=== PATIENT | male | born 1975 | race Caucasian/White ===

== ENCOUNTER 2023-11-15 10:54 | Inpatient (IN) ==
--- OUTSIDE RECORDS SUMMARY | 2023-11-15 11:00 | External Medical Summary | Summary of Care ---
Author Name Unknown Organization [facility] Address [address] [facility] [place] [address] Phone [phone] Care Team Providers Care Cytology Supervisor Name Role Phone Irina Mittal MD Primary Care Provider [phone] Reason for Visit * Reason Onset Date Comments eRx-Medication Refill Fax 09/13/2023 Last office visi t notes from 09/20 Encounter Details Date Type Department Care Team (Late st Contact Info) Description 09/13/2023 Telephone Family Practice [facility] [address] [place] [address] Irina Mittal MD [address] [place] [address] eRx-Medication Refill; Fax (Last office vi... Medications Medication Sig Dispensed Refills Start Date End Date Status Diclofenac Sodium 1 % External Gel (Voltaren) apply 2 grams to affected area twice a day NEEDED FOR PAIN 100 g 1 2 Active [facility] Ultra 2 w/Device Kit Use to take blood sugar E11.9 1 Kit 4 Active OptarosTouch Ultra In Vitro Strip (Glucose Blood) Use to test blood sugar E11.9 100 Strip 5 4 Active OptarosTouch Delica Lancets 33G Use to the test blood sugar once daily E11.9 100 Each 5 4 Active Pravastatin Sodium 10 MG Oral Tablet (Pravachol) take 1 tablet by mouth at bedtime 90 Tablet 4 Active Jardiance 25 MG Oral Tablet (Empagliflozin) take 1 tablet by mouth once daily 90 Tablet 1 4 Active Trulicity 1.5 MG/0.5ML Subcutaneous Solution Pen-injector (Dulaglutide)Ind ications:Type 2 diabetes mellitus with hemoglobin A1c goal of less than 7.0% (HCC) inject 0.5 milliliters ( 1 AND 1/2 milligrams ) subcutaneously every week IN THE ABDOMEN THIGHS OR OUTER AREA OF UPPER ARM ROTATE INJECTION SITES 6 mL 3 3 024 Discontinued(Re fill) Jardiance 25 MG Oral Tablet (Empagliflozin) take 1 tablet by mouth once daily 90 Tablet 4 024 Discontinued Losartan Potassium 25 MG Oral Tablet (Cozaar)Indicati ons:Type 2 diabetes mellitus with hemoglobin A1c goal of less than 7.0% (HCC) take 1 tablet by mouth every morning 90 Tablet 4 024 Discontinued(Re fill) documented as of this encounter (statuses as of 11/05/2023) Active Problems Problem Noted Date Diagnosed Date Type 2 diabetes mellitus wit h foot ulcer, without long-term current use of insulin 09/21/2023 BMI 40.0-44.9, adult 04/16/2020 Overview: Per Obesity protocol HTN, goal below 130/80 11/15/2019 Type 2 diabetes mellitus wit h hemoglobin A1c goal of less than 7.0% 05/02/2019 Dyslipidemia 05/02/2019 Morbid obesity due to excess calories 04/26/2019 documented as of this encounter (statuses as of 11/05/2023) Immunizations Name Administration Dates Next Due TDAP (age 10 and older)(Boostrix) 04/26/2019 documented as of this encounter Social History Tobacco Use Types Packs/Day Years Used Date Smoking Tobacco: Never Smokeless Tobacco: Never Alcohol Use Standard Drinks/Week Comments Not Currently 0 (1 standard drink = 0.6 oz pur e alcohol) PHQ-2 Answer Date Recorded PHQ Adult Total Score 0 07/31/2020 Hunger Vital Sign Answer Date Recorded Worried About Running Out of Food in the Last Ye ar Never true 04/26/2019 Ran Out of Food in the Last Year Never true 04/26/2019 Sex and Gender Information Value Date Recorded Sex Assigned at Male 07/01/2022 7:29 PM EST Gender Identity Male 07/01/2022 7:29 PM EST Sexual Orientation Straight 07/01/2022 7: 29 PM EST Job Start Date Occupation Industry Not on file Not on file Not on file documented as of this encounter Miscellaneous Notes * Telephone Encounter - Dipti Guajardo LPN - 11/05/2023 12:05 PM EDT Please send to PCP's office, not a urology patient. Thank you Sandra * Telephone Encounter - Georgette Dior OSA - 11/05/2023 11:51 AM EDT Mary from [facility] is following up on her previous call. Mary states she has no received any faxes. Confirmed fax * Telephone Encounter - Jelena Simeon LPN - 10/16/2023 4:50 PM EDT Faxed missing information needed * Telephone Encounter - Mae Walker OSA - 10/12/2023 9:02 AM EDT [employer] calling in again stating they did receive some of the paperwork, but they are still missing forms. They need most recent office notes, and the statement of certifying physician form that sent over. Please fax this info to [phone] * Telephone Encounter - Wilfrido Dobson OSA - 10/07/2023 3:03 PM EDT Caller requesting the following information to be faxed: Name/Company of caller: Tameka with [facility] Information requested to be faxed: Last office visit notes and a statement of certifying physician form Fax number: [phone] Attention to Name/Company: [employer] Any additional information?: None * Telephone Encounter - Irina Mittal MD - 09/29/2023 5:54 PM EDT I will check. I don't have the forms that I am aware of. * Telephone Encounter - Agustina Lozano LPN - 09/29/2023 4:30 PM EDT Please check if you have these forms on your desk or they may have gone to [facility]. I believe an MD or DO has to sign the forms. * Telephone Encounter - Day Campa OSA - 09/29/2023 11:42 AM EDT [employer] called regarding the forms faxed for therapeutic shoes. I made her aware these were unable to be completed until pt was seen for an OV. Since pt was seen 09/20, please complete the forms and sendwith pt's OV notes to fax #: [phone]. * Telephone Encounter - Edel Torrez OSA - 09/25/2023 9:28 AM EDT No answer and VM full My g sent * Telephone Encounter - Edel Torrez OSA - 09/22/2023 10:03 AM EDT LM for pt to call back for an appt with any provider * Telephone Encounter - Moira Vega LPN - 09/22/2023 10:01 AM EDT Patient has not been seen since May 2022. Will need OV prior to completion of form. * Telephone Encounter - Adele Martel OSA - 09/21/2023 1:23 PM EDT Hallie has called in with [facility] states she needs most recent office notes & form to be filled out & signed by physician in regards to pt.'s order for diabetic shoes & faxed back to [phone] please advise. * Telephone Encounter - Dominique Goldstein PHARM Tech - 09/16/2023 3:01 PM EDT Patient calling to request appt with Dr. Mittal. Transferred pt to scheduling for further assistance. Thank you, Dominique Goldstein, [facility] Dynamometer Tester II [facility])(Formerly Telepharmacy) 09/16/2023,3:01 PM * Telephone Encounter - Man Mukherjee RP - 09/14/2023 4:34 PM EDT Signed Prescriptions: Disp Refills Jardiance 25 MG Oral Tablet (Empagliflozin)90 Tab*1 Sig: take 1 tablet by mouth once dailyAuthorizing Provider: IRINA MITTAL User: MAN MUKHERJEE * Telephone Encounter - Jelena Simeon LPN - 09/14/2023 10:13 AM EDT Received fax from [facility] requesting office notes and forms to be completed for therapeutic shoes. Pt has not been in office since 05/08/2022. Pt will need appt for this to be completed Called pt, let message for a return call documented in this encounter Plan of Treatment Upcoming Encounters Date Type Department Care Team (Late st Contact Info) Description 12/01/2023 8:00 AM EDT Office Visit Pharmacy, [facility] [address] [facility] [place] [address] [facility] [address] [facility] [place] [address] Scheduled Orders Name Type Priority Associated Diagnoses Orde r Schedule CBC Lab Routine Dyslipidemia Expected: 09/21/2023 (Approximate), Expires: 09/20/2024 LIPID PANEL WITH DIRECT LDL IF TG IS HIGH Lab Routine Dyslipidemia Expected: 09/21/2023 (Approximate), Expires: 09/20/2024 Health Maintenance Due Date Last Done Comments Pneumococcal Vaccine: Pediatrics (0 to 5 Years) and At-Risk Patients (6 to 64 Years) (1 of 2 - PCV) 1983 Hepatitis B (1 of 3 - 19+ 3-dose series) 1996 Depression Screening 07/31/2021 07/31/2020 Cologuard 2022 Colonoscopy 2022 Colorectal Cancer Screening 2022 Fecal Occult Blood Test 2022 Sigmoidoscopy 2022 Diabetic Eye Exam 11/27/2022 11/27/2021, , 11/14/2020, Additional history exists COVID-19 Vaccine ( - 2022- season) 2023 Albumin/Creatinine Ratio 06/28/2023 023, 04/18/2022, 03/20/2021 HbA1c 01/11/2024 07/13/2023, 01/06, 06/28/2022, Additional history exists B-12 01/22/2024 01/21/2023, 11/08, 08/23/2020 Influenza Vaccine (FLU shot) (Season Ended) 2024 GFR 07/13/2024 07/13/2023, 07/10, 07/26/2022, Additional history exists Diabetic Foot Exam 09/20/2024 09/21/2023, 08/23/2020 Lipid Panel 06/28/2027 06/28/2022, 01/2022, 12/05/2021, Additional history exists DTaP,Tdap,and Td Vaccines (2 - Td or Tdap) 04/26/2029 04/26/2019 GARDASIL-HPV IMMUNIZATION SERIES Aged Out No longer eligible based on patient's age to complete this topic HIV Screening Discontinued Hepatitis C Screening Discontinued MENINGOCOCCAL (MENACTRA/MENVEO) Aged Out No longer eligible based on patient's age to complete this topic documented as of this encounter Medical Devices Not on filedocumented as of this encounter Visit Diagnoses Diagnosis Dyslipidemia- Primary Other and unspecified hyperlipidemia documented in this encounter Care Teams Cytology Supervisor Relationship Specialty Start Date End Date Irina Mittal MD [address] [place] [address] PCP - General Family Medicine 03/19/20 documented as of this encounter
--- OUTSIDE RECORDS SUMMARY | 2023-11-15 11:00 | External Medical Summary | Summary of Care ---
Author Name Unknown Organization [facility] Address [address] [facility] [place] [address] Phone [phone] Care Team Providers Care Fashion Photographer Name Role Phone Irina Mittal MD Primary Care Provider [phone] Reason for Visit * Reason Onset Date Comments eRx-Medication Refill Fax 09/13/2023 Last office visi t notes from 09/20 Encounter Details Date Type Department Care Team (Late st Contact Info) Description 09/13/2023 Telephone Family Practice [facility] [address] [place] [address] Irina Mittal MD [address] [place] [phone] eRx-Medication Refill; Fax (Last office vi... Allergies No known active allergiesdocumented as of this encounter (statuses as of 10/13/2023) Medications Medication Sig Dispensed Refills Start Date End Date Status Diclofenac Sodium 1 % External Gel (Voltaren) apply 2 grams to affected area twice a day NEEDED FOR PAIN 100 g 1 2 Active Maven7Touch Ultra 2 w/Device Kit Use to take blood sugar E11.9 1 Kit 0 4 Active OneTouch Ultra In Vitro Strip (Glucose Blood) Use to test blood sugar E11.9 100 Strip 5 4 Active OneTouch Delica Lancets 33G Use to the test blood sugar once daily E11.9 100 Each 5 4 Active Pravastatin Sodium 10 MG Oral Tablet (Pravachol) take 1 tablet by mouth at bedtime 90 Tablet 0 4 Active Jardiance 25 MG Oral Tablet [...] tablet by mouth once daily 90 Tablet 0 4 024 Discontinued Losartan Potassium 25 MG Oral Tablet (Cozaar)Indicati ons:Type 2 diabetes mellitus with hemoglobin A1c goal of less than 7.0% (HCC) take 1 tablet by mouth every morning 90 Tablet 0 4 024 Discontinued(Re fill) documented as of this encounter (statuses as of 10/13/2023) Active Problems Problem Noted Date Diagnosed Date [...] as of this encounter (statuses as of 10/13/2023) Immunizations Name Administration Dates Next Due TDAP [...] encounter Miscellaneous Notes * Telephone Encounter - Mae Walker OSA - 10/12/2023 9:02 AM EDT [employer] calling in again stating they did receive some of the paperwork, but they are still missing forms. They need most recent office notes, and the statement of certifying physician form that sent over. Please fax this info to [phone] * Telephone Encounter - Wilfrido Dobson OSA - 10/07/2023 3:03 PM EDT Caller requesting the following information to be faxed: Name/Company of caller: Ally with [facility] Information requested to be faxed: Last office visit notes and a statement of certifying physician form Fax number: [phone] Attention to Name/Company: [employer] Any additional information?: None * Telephone Encounter - Irina Mittal MD - 09/29/2023 5:54 PM EDT I will check. I don't have the forms that I am aware of. * Telephone Encounter - Agustina Lozano LPN - 09/29/2023 4:30 PM EDT Please check if you have these forms on your desk or they may have gone to [facility]. I believe an MD or DO has [...] sendwith pt's OV notes to fax #: [phone]. * Telephone Encounter - Edel Torrez OSA [...] PM EDT Hallie has called in with [facility] states she needs most recent office notes & form to be filled out & signed by physician in regards to pt.'s order for diabetic shoes & faxed back to [phone] please advise. * Telephone Encounter - Dominique Goldstein PHARM Tech - 09/16/2023 3:01 PM EDT Patient calling to request appt with Dr. Mittal. Transferred pt to scheduling for further assistance. Thank you, Dominique Goldstein, [facility] Slip Feeder II [facility])(Formerly Telepharmacy) 09/16/2023,3:01 PM * Telephone Encounter - Man Mukherjee [facility] - 09/14/2023 4:34 PM EDT Signed Prescriptions: Disp Refills Jardiance 25 MG Oral Tablet (Empagliflozin)90 Tab*1 Sig: take 1 tablet by mouth once dailyAuthorizing Provider: IRINA MITTAL User: MAN MUKHERJEE * Telephone Encounter - Jelena Simeon LPN - 09/14/2023 10:13 AM EDT Received fax from [facility] requesting office notes and forms to be [...] AM EDT Office Visit Pharmacy, [facility] [address] [facility] [place] [address] [facility] [address] [facility] [place] [address] Scheduled Orders Name Type Priority Associated Diagnoses [...] 11/14/2020, Additional history exists COVID-19 Vaccine ( season) 2023 Albumin/Creatinine Ratio 06/28/2023 023, 04/18/2022, 03/20/2021 HbA1c 01/11/2024 07/13/2023, 01/06, 06/28/2022, Additional history exists B-12 01/22/2024 01/21/2023, 11/08, 08/23/2020 Influenza Vaccine (FLU shot) (Season Ended) 2024 GFR 07/13/2024 07/13/2023, 07/10, 07/26/2022, Additional history exists Diabetic Foot Exam 09/20/2024 09/21/2023, 08/23/2020 Lipid Panel 06/28/2027 06/28/2022, 08/0 01/2022, 12/05/2021, Additional history exists DTaP,Tdap,and Td [...] hyperlipidemia documented in this encounter Care Teams Fashion Photographer Relationship Specialty Start Date End Date Irina Mittal MD [address] [place] [address] PCP - General Family Medicine 03/19/20 documented as of this encounter
--- OUTSIDE RECORDS SUMMARY | 2023-11-15 11:00 | External Medical Summary | Summary of Care ---
Author Name Unknown Organization [facility] Address [address] [facility] [place] [address] Phone [phone] Care Team Providers Care Print Shop Helper Name Role Phone Irina Rose MD Primary Care Provider [phone] Reason for Referral * Medication Prior Authorization - Pending Review Specialty Diagnoses / Procedures Referred By Contac t Referred To Contact Diagnoses Type 2 diabetes mellitus with hemoglobin A1c goal of less than 7.0% (HCC) Flavio Baer, [facility] [address] [place] [address] Referral ID Status Reason Start Date Expiration Date V isits Requested Visits Authorized [id number] Pending Review 999 999 Reason for Visit * Reason Onset Date Comments Medication Refill 09/28/2023 Encounter Details Date Type Department Care Team (Late st Contact Info) Description 09/28/2023 Refill Family Practice [facility] [address] [facility] [place] [address] Irina Rose MD [address] [place] [address] Type 2 diabetes mellitus with hemoglobin A1c goal of less than 7.0% (HCC) Allergies No known active allergiesdocumented as of this encounter (statuses as of 09/28/2023) Medications Medication Sig Dispensed Refills Start Date End Date Status Diclofenac Sodium 1 % External Gel (Voltaren) apply 2 grams to affected area twice a day NEEDED FOR PAIN 100 g 1 08/11/2021 Active Senic Ultra 2 w/Device Kit Use to take blood sugar E11.9 1 Kit 0 08/04/2023 Active Senic Ultra In Vitro Strip (Glucose Blood) Use to test blood sugar E11.9 100 Strip 5 08/04/2023 Active Senic Delica Lancets 33G Use to the test blood sugar once daily E11.9 100 Each 5 08/04/2023 Active Pravastatin Sodium 10 MG Oral Tablet (Pravachol) take 1 tablet by mouth at bedtime 90 Tablet 0 08/11/2023 Active Jardiance 25 MG Oral Tablet (Empagliflozin) take 1 tablet by mouth once daily 90 Tablet 1 09/14/2023 Active Trulicity 1.5 MG/0.5ML Subcutaneous Solution Pen-injector (Dulaglutide)Jaja cations:Type 2 diabetes mellitus with hemoglobin A1c goal of less than 7.0% (HCC) inject 0.5 milliliters ( 1 AND 1/2 milligrams ) subcutaneously every week IN THE ABDOMEN THIGHS OR OUTER AREA OF UPPER ARM ROTATE INJECTION SITES 6 mL 1 09/28/2023 Active Losartan Potassium 25 MG Oral Tablet (Cozaar)Indicatio ns:Type 2 diabetes mellitus with hemoglobin A1c goal of less than 7.0% (HCC) Take 1 Tablet by mouth in the morning. In the morning.. 90 Tablet 1 09/28/2023 Active Trulicity 1.5 MG/0.5ML Subcutaneous Solution Pen-injector (Dulaglutide)Jaja cations:Type 2 diabetes mellitus with hemoglobin A1c goal of less than 7.0% (HCC) inject 0.5 milliliters ( 1 AND 1/2 milligrams ) subcutaneously every week IN THE ABDOMEN THIGHS OR OUTER AREA OF UPPER ARM ROTATE INJECTION SITES 6 mL 3 03/22/2023 4 Discontinu ed(Refill) documented as of this encounter (statuses as of 09/28/2023) Active Problems Problem Noted Date Diagnosed Date [...] as of this encounter (statuses as of 09/28/2023) Immunizations Name Administration Dates Next Due TDAP [...] encounter Miscellaneous Notes * Telephone Encounter - Flavio Baer RPh - 09/28/2023 9:09 AM EDTSigned Prescriptions: Disp Refills Trulicity 1.5 MG/0.5ML Subcutaneous Soluti*6 mL 1 Sig: inject 0.5 milliliters ( 1 AND 1/2 milligrams ) subcutaneously every week IN THE ABDOMEN THIGHS OR OUTER AREAOF UPPER ARM ROTATE INJECTION SITESAuthorizing Provider: IRINA ROSE User: FLAVIO BAER * Telephone Encounter - Flavio Baer RPh - 09/28/2023 9:09 AM EDT Provided 90 days supply with 1 refill. Per refill protocol patient should have lipid panel on file within past year. Lab work was already ordered. Added reminder note to pharmacy. Thanks, Flavio Baer [facility] Clinical Pharmacist Centralized Clinical Pharmacy Services ([facility]PS) (Formerly Telepharmacy) [phone] * Telephone Encounter - Neha Malone CPhT - 09/28/2023 8:45 AM EDT Pt requesting HIGH PRIORITY due to out of med Did you pend patient's preferred pharmacy and medication before forwarding?no Pharmacy: [facility] Pending Prescriptions: Disp Refills Trulicity 1.5 MG/0.5ML Subcutaneous Solut*6 mL 3 Sig: inject 0.5 milliliters ( 1 AND 1/2 milligrams ) subcutaneously every week IN THE ABDOMEN THIGHS OR OUTER AREA OF UPPER ARM ROTATE INJECTION SITES Last Visit: 09/21/2023 (in office), Visit date not found (telemedicine) Next Visit: Visit date not found If no future appointments scheduled, and last appointment is greater than a year ago, please schedule patient for a follow-up appointment Last date the medication was ordered: 03/22/23 Is this request for a controlled substance?No Urine Drug Screen:No results found for this or any previous visit. Patient Phone Numbers Labs: Lab Results Component Value Date/Time CREAT 0.9 07/13/2023 07:31 AM POTASSIUM 4.6 07/13/2023 07:31 AM TSH 2.58 04/30/2019 09:26 AM LDLDIRECT 69 06/28/2022 09:18 AM LDLDIRECT 70 04/30/2019 09:26 AM ALT 25 07/31/2022 04:44 PM HGBA1C 7.4 (H) 07/13/2023 07:31 AM HGBA1C 8.2 (H) 03/05/2020 04:53 PM documented in this encounter Plan of Treatment Upcoming Encounters Date Type Department Care Team (Late st Contact Info) Description 12/01/2023 8:00 AM EDT Office Visit Pharmacy, [facility] [address] [place] [address] [facility] [address] [place] [address] Health Maintenance Due Date Last Done Comments [...] as of this encounter Visit Diagnoses Diagnosis Type 2 diabetes mellitus with hemoglobin A1c goal of less than 7.0% (HCC) documented in this encounter Care Teams Print Shop Helper Relationship Specialty Start Date End Date Irina Rose MD [address] [place] [address] PCP - General Family Medicine 03/19/20 documented as of this encounter
--- OUTSIDE RECORDS SUMMARY | 2023-11-15 11:00 | External Medical Summary | Summary of Care ---
Author Name Unknown Organization [facility] Address [address] [facility] [place] [address] Phone [phone] Care Team Providers Care Planimeter Operator Name Role Phone Irina Rose MD Primary Care Provider [phone] [phone] Reason for Visit * Reason Onset Date Comments eRx-Medication Refill Fax 09/13/2023 Encounter Details Date Type Department Care Team (Late st Contact Info) Description 09/13/2023 Telephone Family Practice [facility] [address] [place] [address] Irina Rose MD [address] [place] [address] eRx-Medication Refill; Fax Allergies No known active allergiesdocumented as of this encounter (statuses as of 09/29/2023) Medications Medication Sig Dispensed Refills Start Date End Date Status Diclofenac Sodium 1 % External Gel (Voltaren) apply 2 grams to affected area twice a day NEEDED FOR PAIN 100 g 1 2 Active [employer] S.ATouch Ultra 2 w/Device Kit Use to take [...] as of this encounter (statuses as of 09/29/2023) Active Problems Problem Noted Date Diagnosed Date [...] as of this encounter (statuses as of 09/29/2023) Immunizations Name Administration Dates Next Due TDAP [...] encounter Miscellaneous Notes * Telephone Encounter - Irina Rose MD - 09/29/2023 5:54 PM EDT I will check. I don't have the forms that I am aware of. * Telephone Encounter - Agustina Lozano LPN - 09/29/2023 4:30 PM EDT Please check if you have these forms on your desk or they may have gone to [facility]. I believe an MD or DO has to sign the forms. * Telephone Encounter - Day Campa OSA - 09/29/2023 11:42 AM EDT Ally called regarding the forms faxed for therapeutic shoes. I made her aware these were unable to be completed until pt was seen for an OV. Since pt was seen 09/20, please complete the forms and sendwith pt's OV notes to fax #: [phone]. * Telephone Encounter - Edel Torrez OSA [...] EDT Hallie has called in with [facility] states she needs most recent office notes & form to be filled out & signed by physician in regards to pt.'s order for diabetic shoes & faxed back to [phone] please advise. * Telephone Encounter - Dominique Goldstein PHARM Tech - 09/16/2023 3:01 PM EDT Patient calling to request appt with Dr. Rose. Transferred pt to scheduling for further assistance. Thank you, Dominique Goldstein, [facility] Transit Survey Worker II Centralized Clinical Pharmacy Services(CCPS)(Formerly Telepharmacy) 09/16/2023,3:01 PM * Telephone Encounter - Ovi Combs [facility] - 09/14/2023 4:34 PM EDT Signed Prescriptions: Disp Refills Jardiance 25 MG Oral Tablet (Empagliflozin)90 Tab*1 Sig: take 1 tablet by mouth once dailyAuthorizing Provider: IRINA ROSE User: OVI COMBS * Telephone Encounter - Jelena Simeon LPN - 09/14/2023 10:13 AM EDT Received fax from [facility] requesting office notes and forms to be completed for therapeutic shoes. Pt has not been in office since 05/08/2022. Pt will need appt for this to be completed Called pt, let message for a return call documented in this encounter Plan of Treatment Upcoming Encounters Date Type Department Care Team (Late st Contact Info) Description 12/01/2023 8:00 AM EDT Office Visit Pharmacy, [facility] [address] [place] [address] [facility] [address] [place] [address] Scheduled Orders Name Type Priority Associated Diagnoses [...] Additional history exists COVID-19 Vaccine ( - 2022-24 season) 2023 Albumin/Creatinine Ratio 06/28/2023 023, 04/18/2022, 03/20/2021 HbA1c 01/11/2024 07/13/2023, 0811/2022, 06/28/2022, Additional history exists B-12 01/22/2024 01/21/2023, 11/08, 08/23/2020 Influenza Vaccine (FLU shot) (Season Ended) 2024 GFR 07/13/2024 07/13/2023, 07/10, 07/26/2022, Additional history exists Diabetic Foot Exam 09/20/2024 09/21/2023, 08/23/2020 Lipid Panel 06/28/2027 06/28/2022, 0801/2022, 12/05/2021, Additional history exists DTaP,Tdap,and Td Vaccines [...] hyperlipidemia documented in this encounter Care Teams Planimeter Operator Relationship Specialty Start Date End Date Irina Rose MD [address] [facility] [place] [address] PCP - General Family Medicine 03/19/20 documented as of this encounter
--- OUTSIDE RECORDS SUMMARY | 2023-11-15 11:00 | External Medical Summary | Summary of Care ---
Author Name Unknown Organization [facility] Address [address] [facility] [place] [address] Phone [phone] Care Team Providers Care Brush Loader And Handle Attacher Name Role Phone Irina Rose MD Primary Care Provider [phone] [phone] Reason for Visit * Reason Onset Date Comments eRx-Medication Refill Fax 09/13/2023 Encounter Details Date Type Department Care Team (Late st Contact Info) Description 09/13/2023 Telephone Family Practice [facility] [address] [place] [address] Irina Rose MD [address] [place] [address] eRx-Medication Refill; Fax Allergies No known active allergiesdocumented as of this encounter (statuses as of 09/29/2023) Medications Medication Sig Dispensed Refills Start Date End Date Status Diclofenac Sodium 1 % External Gel (Voltaren) apply 2 grams to affected area twice a day NEEDED FOR PAIN 100 g 1 2 Active gogamingoTouch Ultra 2 w/Device Kit Use to take [...] encounter Miscellaneous Notes * Telephone Encounter - Day Campa OSA - 09/29/2023 11:42 AM EDT Tameka called regarding the forms faxed for therapeutic shoes. I made her aware these were unable to be completed until pt was seen for an OV. Since pt was seen 09/20, please complete the forms and sendwith pt's OV notes to fax #: [phone]. * Telephone Encounter - Edel Torrez OSA [...] PM EDT Hallie has called in with [facility] states she needs most recent office notes & form to be filled out & signed by physician in regards to pt.'s order for diabetic shoes & faxed back to [phone] please advise. * Telephone Encounter - Dominique Goldstein PHARM Tech - 09/16/2023 3:01 PM EDT Patient calling to request appt with Dr. Rose. Transferred pt to scheduling for further assistance. Thank you, Dominique Goldstein, [facility] Rooter Operator II Centralized Clinical Pharmacy Services(CCPS)(Formerly Telepharmacy) 09/16/2023,3:01 PM * Telephone Encounter - Man Combs [facility] - 09/14/2023 4:34 PM EDT Signed Prescriptions: Disp Refills Jardiance 25 MG Oral Tablet (Empagliflozin)90 Tab*1 Sig: take 1 tablet by mouth once dailyAuthorizing Provider: IRINA ROSE User: MAN COMBS * Telephone Encounter - Jelena Simeon LPN - 09/14/2023 10:13 AM EDT Received fax from [facility] requesting office notes and forms to be completed for therapeutic shoes. Pt has not been in office since 05/08/2022. Pt will need appt for this to be completed Called pt, let message for a return call documented in this encounter Plan of Treatment Upcoming Encounters Date Type Department Care Team (Late st Contact Info) Description 12/01/2023 8:00 AM EDT Office Visit Pharmacy, [address] [place] [address] [facility] [address] [place] [address] Scheduled Orders Name Type Priority Associated Diagnoses [...] hyperlipidemia documented in this encounter Care Teams Brush Loader And Handle Attacher Relationship Specialty Start Date End Date Irina Rose MD [address] [place] [address] PCP - General Family Medicine 03/19/20 documented as of this encounter
--- OUTSIDE RECORDS SUMMARY | 2023-11-15 11:00 | External Medical Summary | Summary of Care ---
Author Name Unknown Organization [facility] Address [address] [facility] [place] [address] Phone [phone] Care Team Providers Care Vp Of Global Marketing Name Role Phone Irina Mittal MD Primary Care Provider [phone] [phone] Reason for Visit * Reason Onset Date Comments eRx-Medication Refill Fax 09/13/2023 Last office visi t notes from 09/20 Encounter Details Date Type Department Care Team (Late st Contact Info) Description 09/13/2023 Telephone Family Practice [facility] [address] [place] [address] Irina Mittal MD [address] [place] [address] eRx-Medication Refill; Fax (Last office vi... Medications Medication Sig Dispensed Refills Start Date End Date Status Diclofenac Sodium 1 % External Gel (Voltaren) apply 2 grams to affected area twice a day NEEDED FOR PAIN 100 g 1 2 Active [employer] Ultra 2 w/Device Kit Use to take blood sugar E11.9 1 Kit 4 Active TELOSTouch Ultra In Vitro Strip (Glucose Blood) Use to test blood sugar E11.9 100 Strip 5 4 Active TELOSTouch Delica Lancets 33G Use to the test [...] encounter Miscellaneous Notes * Telephone Encounter - Georgette Dior OSA - 11/05/2023 11:51 AM EDT Mary from [facility] is following up on her previous call. [...] sent over. Please fax this info to [phone] * Telephone Encounter - Wilfrido Dobson OSA - 10/07/2023 3:03 PM EDT Caller requesting the following information to be faxed: Name/Company of caller: Tameka with [facility] Information requested to be faxed: Last office visit notes and a statement of certifying physician form Fax number: [phone] Attention to Name/Company: [employer] Any additional information?: None * Telephone Encounter - Irina Mittal MD - 09/29/2023 5:54 PM EDT I will check. I don't have the forms that I am aware of. * Telephone Encounter - Agustina Lozano LPN - 09/29/2023 4:30 PM EDT Please check if you have these forms on your desk or they may have gone to [facility]. I believe an MD or DO has [...] sendwith pt's OV notes to fax #: [phone]. * Telephone Encounter - Edel Torrez OSA [...] PM EDT Hallie has called in with [facility] states she needs most recent office notes & form to be filled out & signed by physician in regards to pt.'s order for diabetic shoes & faxed back to [phone] please advise. * Telephone Encounter - Dominique Goldstein PHARM Tech - 09/16/2023 3:01 PM EDT Patient calling to request appt with Dr. Mittal. Transferred pt to scheduling for further assistance. Thank you, Dominique Goldstein, [facility] Tooling Manager II Centralized Clinical Pharmacy Services(CCPS)(Formerly Telepharmacy) 09/16/2023,3:01 PM * Telephone Encounter - Man Mukherjee [facility] - 09/14/2023 4:34 PM EDT Signed Prescriptions: Disp Refills Jardiance 25 MG Oral Tablet (Empagliflozin)90 Tab*1 Sig: take 1 tablet by mouth once dailyAuthorizing Provider: IRINA MITTAL User: MAN MUKHERJEE * Telephone Encounter - Jelena Simeon LPN - 09/14/2023 10:13 AM EDT Received fax from [facility] requesting office notes and forms to be completed for therapeutic shoes. Pt has not been in office since 05/08/2022. Pt will need appt for this to be completed Called pt, let message for a return call documented in this encounter Plan of Treatment Upcoming Encounters Date Type Department Care Team (Late st Contact Info) Description 12/01/2023 8:00 AM EDT Office Visit Pharmacy, [facility] [address] [facility] [place] [address] [facility] [address] [facility] [place] [address] Scheduled Orders Name Type Priority Associated Diagnoses [...] hyperlipidemia documented in this encounter Care Teams Vp Of Global Marketing Relationship Specialty Start Date End Date Irina Mittal MD [address] [place] [address] PCP - General Family Medicine 03/19/20 documented as of this encounter
--- OUTSIDE RECORDS SUMMARY | 2023-11-15 11:00 | External Medical Summary | Summary of Care ---
Author Name Unknown Organization [facility] Address [address] [facility] [place] [address] Phone [phone] Care Team Providers Care Customer Relations Specialist Name Role Phone Irina Rose MD Primary Care Provider [phone] [phone] Reason for Visit * Reason Onset Date Comments eRx-Medication Refill Fax 09/13/2023 Encounter Details Date Type Department Care Team (Late st Contact Info) Description 09/13/2023 Telephone Family Practice [facility] [address] [place] [address] Irina Rose MD [address] [place] [address] eRx-Medication Refill; Fax Allergies No known active allergiesdocumented as of this encounter (statuses as of 09/25/2023) Medications Medication Sig Dispensed Refills Start Date End Date Status Diclofenac Sodium 1 % External Gel (Voltaren) apply 2 grams to affected area twice a day NEEDED FOR PAIN 100 g 1 2 Active Trulicity 1.5 MG/0.5ML Subcutaneous Solution Pen-injector (Dulaglutide)Jaja cations:Type 2 diabetes mellitus with hemoglobin A1c goal of less than 7.0% ([facility]) inject 0.5 milliliters ( 1 AND 1/2 milligrams ) subcutaneously every week IN THE ABDOMEN THIGHS OR OUTER AREA OF UPPER ARM ROTATE INJECTION SITES 6 mL 3 3 Active OneTouch Ultra 2 w/Device Kit Use to take [...] at bedtime 90 Tablet 0 4 Active Losartan Potassium 25 MG Oral Tablet (Cozaar)Indicatio ns:Type 2 diabetes mellitus with hemoglobin A1c goal of less than 7.0% (HCC) take 1 tablet by mouth every morning 90 Tablet 0 4 Active Jardiance 25 MG Oral Tablet (Empagliflozin) take 1 tablet by mouth once daily 90 Tablet 1 4 Active Jardiance 25 MG Oral Tablet (Empagliflozin) take 1 tablet by mouth once daily 90 Tablet 0 4 09/14/19 24 Discontinued documented as of this encounter (statuses as of 09/25/2023) Active Problems Problem Noted Date Diagnosed Date [...] as of this encounter (statuses as of 09/25/2023) Immunizations Name Administration Dates Next Due TDAP [...] encounter Miscellaneous Notes * Telephone Encounter - Edel Torrez OSA [...] PM EDT Hallie has called in with [facility] states she needs most recent office notes & form to be filled out & signed by physician in regards to pt.'s order for diabetic shoes & faxed back to [phone] please advise. * Telephone Encounter - Dominique Goldstein PHARM Tech - 09/16/2023 3:01 PM EDT Patient calling to request appt with Dr. Rose. Transferred pt to scheduling for further assistance. Thank you, Dominique Goldstein, [facility] Relationship Manager II Centralized Clinical Pharmacy Services(CCPS)(Formerly Telepharmacy) 09/16/2023,3:01 PM * Telephone Encounter - Ovi Combs [facility] - 09/14/2023 4:34 PM EDT Signed Prescriptions: Disp Refills Jardiance 25 MG Oral Tablet (Empagliflozin)90 Tab*1 Sig: take 1 tablet by mouth once dailyAuthorizing Provider: IRINA ROSE User: OVI COMBS * Telephone Encounter - Jelena Simeon LPN - 09/14/2023 10:13 AM EDT [facility] and forms to be completed for therapeutic shoes. Pt has not been in office since 05/08/2022. Pt will need appt for this to be completed Called pt, let message for a return call documented in this encounter Plan of Treatment Upcoming Encounters Date Type Department Care Team (Late st Contact Info) Description 12/01/2023 8:00 AM EDT Office Visit Pharmacy, [facility] [address] [place] [address] [facility] [address] [place] [address] Scheduled Orders Name Type Priority Associated Diagnoses [...] hyperlipidemia documented in this encounter Care Teams Customer Relations Specialist Relationship Specialty Start Date End Date Irina Rose MD [address] [place] [address] PCP - General Family Medicine 03/19/20 documented as of this encounter
--- OUTSIDE RECORDS SUMMARY | 2023-11-15 11:00 | External Medical Summary | Summary of Care ---
Author Name Unknown Organization [facility] Address [address] [facility] [place] [address] Phone [phone] Care Team Providers Care Bartacker Name Role Phone Irina Rose MD Primary Care Provider [phone] [phone] Reason for Visit * Reason Onset Date Comments eRx-Medication Refill Fax 09/13/2023 Encounter Details Date Type Department Care Team (Late st Contact Info) Description 09/13/2023 Telephone Family Practice [facility] [address] [place] [address] Irina Rose MD [address] [place] [address] eRx-Medication Refill; Fax Allergies No known active allergiesdocumented as of this encounter (statuses as of 09/29/2023) Medications Medication Sig Dispensed Refills Start Date End Date Status Diclofenac Sodium 1 % External Gel (Voltaren) apply 2 grams to affected area twice a day NEEDED FOR PAIN 100 g 1 2 Active EnCoateTouch Ultra 2 w/Device Kit Use to take [...] encounter Miscellaneous Notes * Telephone Encounter - Agustina Lozano LPN - 09/29/2023 4:30 PM EDT Please check if you have these forms on your desk or they may have gone to [facility]. I believe an MD or DO [...] sendwith pt's OV notes to fax #: [phone]. * Telephone Encounter - Edel Torrez OSA [...] PM EDT Hallie has called in with [facility] states she needs most recent office notes & form to be filled out & signed by physician in regards to pt.'s order for diabetic shoes & faxed back to [phone] please advise. * Telephone Encounter - Dominique Goldstein PHARM Tech - 09/16/2023 3:01 PM EDT Patient calling to request appt with Dr. Rose. Transferred pt to [facility] for further assistance. Thank you, Dominique Goldstein, [facility] Equal Opportunity Counselor II Centralized Clinical Pharmacy Services(CCPS)(Formerly Telepharmacy) 09/16/2023,3:01 PM * Telephone Encounter - Man Combs [facility] - 09/14/2023 4:34 PM EDT Signed Prescriptions: Disp Refills Jardiance 25 MG Oral Tablet (Empagliflozin)90 Tab*1 Sig: take 1 tablet by mouth once dailyAuthorizing Provider: IRINA ROSE User: MAN COMBS * Telephone Encounter - Curry-Jelena Gonsalez LPN - 09/14/2023 10:13 AM EDT Received fax from [facility] requesting office notes and forms [...] 12/01/2023 8:00 AM EDT Office Visit Pharmacy, [facility] [address] [facility] [place] [address] [facility] [address] [place] [address] Scheduled Orders Name Type Priority Associated Diagnoses [...] hyperlipidemia documented in this encounter Care Teams Bartacker Relationship Specialty Start Date End Date Irina Rose MD [address] [place] [address] PCP - General Family Medicine 03/19/20 documented as of this encounter
--- OUTSIDE RECORDS SUMMARY | 2023-11-15 11:00 | External Medical Summary | Summary of Care ---
Author Name Unknown Organization [facility] Address [address] [facility] [place] [address] Phone [phone] Care Team Providers Care Warp Doffer Name Role Phone Irina Rose MD Primary Care Provider [phone] Reason for Visit * Reason Onset Date Comments eRx-Medication Refill Fax 09/13/2023 Encounter Details Date Type Department Care Team (Late st Contact Info) Description 09/13/[address] [facility] [address] [place] [address] Irina Rose MD [address] [place] [address] eRx-Medication Refill; Fax Allergies No known active allergiesdocumented as of this encounter (statuses as of 10/07/2023) Medications Medication Sig Dispensed Refills Start Date End Date Status Diclofenac Sodium 1 % External Gel (Voltaren) apply 2 grams to affected area twice a day NEEDED FOR PAIN 100 g 1 2 Active DrizlyTouch Ultra 2 w/Device Kit Use to take [...] as of this encounter (statuses as of 10/07/2023) Active Problems Problem Noted Date Diagnosed Date [...] as of this encounter (statuses as of 10/07/2023) Immunizations Name Administration Dates Next Due TDAP [...] desk or they may have gone to [facility]. I believe an MD or DO [...] sendwith pt's OV notes to fax #: [phone]. * Telephone Encounter - Edel Torrez OSA [...] PM EDT Hallie has called in with [facility] states she needs most recent office notes & form to be filled out & signed by physician in regards to pt.'s order for diabetic shoes & faxed back to [phone] please advise. * Telephone Encounter - Dominique Goldstein PHARM Tech - 09/16/2023 3:01 PM EDT Patient calling to request appt with Dr. Rose. Transferred pt to scheduling for further assistance. Thank you, Dominique Goldstein, [facility] Rehab Tech II Centralized Clinical Pharmacy Services(CCPS)(Formerly Telepharmacy) 09/16/2023,3:01 PM * Telephone Encounter - Ovi Combs [facility] - 09/14/2023 4:34 PM EDT Signed Prescriptions: Disp Refills Jardiance 25 MG Oral Tablet (Empagliflozin)90 Tab*1 Sig: take 1 tablet by mouth once dailyAuthorizing Provider: IRINA ROSE User: OVI COMBS * Telephone Encounter - Jelena Simeon LPN - 09/14/2023 10:13 AM EDT Received fax from [facility] requesting office notes and forms to be completed for therapeutic shoes. Pt has not been in office since 05/08/2022. Pt will need appt for this to be completed Called pt, let message for a return call documented in this encounter Plan of Treatment Upcoming Encounters Date Type Department Care Team (Late st Contact Info) Description 12/01/2023 8:00 AM EDT Office Visit Pharmacy, [facility] [address] [facility] [place] [address] [facility] [address] [facility] [place] [address] Scheduled Orders Name Type Priority Associated Diagnoses [...] hyperlipidemia documented in this encounter Care Teams Warp Doffer Relationship Specialty Start Date End Date Irina Rose MD [address] [facility] [place] [address] PCP - General Family Medicine 03/19/20 documented as of this encounter
--- OUTSIDE RECORDS SUMMARY | 2023-11-15 11:00 | External Medical Summary | Summary of Care ---
Author Name Unknown Organization [facility] Address [address] [facility] [place] [address] Phone [phone] Care Team Providers Care Parts Classifier Name Role Phone Irina Rose MD Primary Care Provider [phone] Reason for Visit * Reason Onset Date Comments eRx-Medication Refill Fax 09/13/2023 Encounter Details Date Type Department Care Team (Late st Contact Info) Description 09/13/2023 Telephone Family Practice [facility] [address] [place] [address] Irina Rose MD [address] [place] [address] eRx-Medication Refill; Fax Allergies No known active allergiesdocumented as of this encounter (statuses as of 09/22/2023) Medications Medication Sig Dispensed Refills Start Date End Date Status Diclofenac Sodium 1 % External Gel (Voltaren) apply 2 grams to affected area twice a day NEEDED FOR PAIN 100 g 1 2 Active Trulicity 1.5 MG/0.5ML Subcutaneous Solution Pen-injector (Dulaglutide)Jaja cations:Type 2 diabetes mellitus with hemoglobin A1c goal of less than 7.0% ([facility]) inject 0.5 milliliters ( 1 AND 1/2 [...] as of this encounter (statuses as of 09/22/2023) Active Problems Problem Noted Date Diagnosed Date [...] as of this encounter (statuses as of 09/22/2023) Immunizations Name Administration Dates Next Due TDAP [...] PM EDT Hallie has called in with [facility] states she needs most recent office notes & form to be filled out & signed by physician in regards to pt.'s order for diabetic shoes & faxed back to [phone] please advise. * Telephone Encounter - Dominique Goldstein PHARM Tech - 09/16/2023 3:01 PM EDT Patient calling to request appt with Dr. Rose. Transferred pt to scheduling for further assistance. Thank you, Dominique Goldstein, [facility] Manager Analytical II Centralized Clinical Pharmacy Services(CCPS)(Formerly Telepharmacy) 09/16/2023,3:01 PM * Telephone Encounter - Ovi Combs [facility] - 09/14/2023 4:34 PM EDT Signed [...] 12/01/2023 8:00 AM EDT Office Visit Pharmacy, [facility] [address] [facility] [place] [address] [facility] [address] [facility] [place] [address] Scheduled Orders Name Type Priority Associated Diagnoses [...] , 11/14/2020, Additional history exists COVID-19 Vaccine (2022- season) 2023 Albumin/Creatinine Ratio 06/28/2023 023, 04/18/2022, [...] hyperlipidemia documented in this encounter Care Teams Parts Classifier Relationship Specialty Start Date End Date Irina Rose MD [address] [place] [address] PCP - General Family Medicine 03/19/20 documented as of this encounter
--- OUTSIDE RECORDS SUMMARY | 2023-11-15 11:00 | External Medical Summary | Summary of Care ---
Author Name Unknown Organization [facility] Address [address] [facility] [place] [address] Phone [phone] Care Team Providers Care Jukebox Operator Name Role Phone Irina Rose MD Primary Care Provider [phone] [phone] Reason for Visit * Reason Onset Date Comments Medication Refill 09/28/2023 Encounter Details Date Type Department Care Team (Late st Contact Info) Description 09/28/2023 Refill Family Practice [facility] [address] [place] [address] Irina Rose MD [address] [place] [address] Type 2 diabetes mellitus with hemoglobin A1c goal of less than 7.0% ([facility]) Allergies No known active allergiesdocumented as of this encounter (statuses as of 09/28/2023) Medications Medication Sig Dispensed Refills Start Date End Date Status Diclofenac Sodium 1 % External Gel (Voltaren) apply 2 grams to affected area twice a day NEEDED FOR PAIN 100 g 1 08/11/2021 Active Mumaxu NetworkTouch Ultra 2 w/Device Kit Use to take blood sugar E11.9 1 Kit 0 08/04/2023 Active Mumaxu NetworkTouch Ultra In Vitro Strip (Glucose Blood) Use to test blood sugar E11.9 100 Strip 5 08/04/2023 Active Mumaxu NetworkTouch Delica Lancets 33G Use to the test blood sugar once daily E11.9 100 Each 5 08/04/2023 Active Pravastatin Sodium 10 MG Oral Tablet (Pravachol) take 1 tablet by mouth at bedtime 90 Tablet 0 08/11/2023 Active Jardiance 25 MG Oral Tablet (Empagliflozin) take 1 tablet by mouth once daily 90 Tablet 1 09/14/2023 Active Losartan Potassium 25 MG Oral Tablet [...] 6 mL 3 03/22/2023 4 Discontinu ed(Refill) Losartan Potassium 25 MG Oral Tablet (Cozaar)Indicatio ns:Type 2 diabetes mellitus with hemoglobin A1c goal of less than 7.0% (HCC) take 1 tablet by mouth every morning 90 Tablet 0 08/11/2023 4 Discontinu ed(Refill) documented as of this [...] encounter Miscellaneous Notes * Telephone Encounter - Jacob Rivera [facility] - 09/28/2023 8:56 AM EDT Signed Prescriptions: Disp Refills Losartan Potassium 25 MG Oral Tablet (Coza*90 Tab*1 Sig: Take 1 Tablet by mouth in the morning. In the morning.. Authorizing Provider: IRINA ROSE Ordering User: JACOB RIVERA * Telephone Encounter - Neha Malone CPhT - 09/28/2023 8:48 AM EDT Pt requesting HIGH PRIORITY due to out of med Please reroute Rx to [facility] [place]. Pending Prescriptions: Disp Refills Losartan Potassium 25 MG Oral Tablet (Coz*90 Tab*0 Sig: Take 1 Tablet by mouth in the morning. In the morning.. Last Visit: 09/21/2023 (in office), Visit date not found (telemedicine) Visit date not found If no future appointments scheduled, and last appointment is greater than a year ago, please schedule patient for a follow-up appointment Last date the medication was ordered: 08/11/23 Patient Phone Numbers Labs: Lab Results Component [...] 12/01/2023 8:00 AM EDT Office Visit Pharmacy, [facility] [address] [facility] [place] [address] [place], [facility] [address] [place] [address] Health Maintenance Due Date Last Done Comments [...] (HCC) documented in this encounter Care Teams Jukebox Operator Relationship Specialty Start Date End Date Irina Rose MD [address] [place] [address] PCP - General Family Medicine 03/19/20 documented as of this encounter
--- OUTSIDE RECORDS SUMMARY | 2023-11-15 11:00 | External Medical Summary | Summary of Care ---
Author Name Unknown Organization [facility] Address [address] [facility] [place] [address] Phone [phone] Care Team Providers Care Vocal Performer Name Role Phone Irina Mittal MD Primary Care Provider [phone] [phone] Reason for Visit * Reason Onset Date Comments eRx-Medication Refill Fax 09/13/2023 Last office visi t notes from 09/20 Encounter Details Date Type Department Care Team (Late st Contact Info) Description 09/13/2023 Telephone [facility] Practice [facility] [address] [place] [address] Irina Mittal MD [address] [place] [id number] eRx-Medication Refill; Fax (Last office vi... Allergies No known active allergiesdocumented as of this encounter (statuses as of 10/12/2023) Medications Medication Sig Dispensed Refills Start Date End Date Status Diclofenac Sodium 1 % External Gel (Voltaren) apply 2 grams to affected area twice a day NEEDED FOR PAIN 100 g 1 2 Active XpressoTouch Ultra 2 w/Device Kit Use to take [...] as of this encounter (statuses as of 10/12/2023) Active Problems Problem Noted Date Diagnosed Date [...] as of this encounter (statuses as of 10/12/2023) Immunizations Name Administration Dates Next Due TDAP [...] sent over. Please fax this info to [phone] * Telephone Encounter - Wilfrido Dobson OSA - 10/07/2023 3:03 PM EDT Caller requesting the following information to be faxed: Name/Company of caller: Ally with [facility] Information requested to be faxed: Last office visit notes and a statement of certifying physician form Fax number: [phone] Attention to Name/Company: [employer] Any additional information?: None * Telephone Encounter - Irina Mittal MD - 09/29/2023 5:54 PM EDT I will check. I don't have the forms that I am aware of. * Telephone Encounter - Agustina Lozano LPN - 09/29/2023 4:30 PM EDT Please check if you have these forms on your desk or they may have gone to [facility]. I believe an MD or DO [...] sendwith pt's OV notes to fax #: [phone]. * Telephone Encounter - Edel Torrez OSA [...] PM EDT Hallie has called in with [facility] states she needs most recent office notes & form to be filled out & signed by physician in regards to pt.'s order for diabetic shoes & faxed back to [phone] please advise. * Telephone Encounter - Dominique Goldstein PHARM Tech - 09/16/2023 3:01 PM EDT Patient calling to request appt with Dr. Mittal. Transferred pt to scheduling for further assistance. Thank you, Dominique Goldstein, [facility] Lumber Carrier II Centralized Clinical Pharmacy Services(CCPS)(Formerly Telepharmacy) 09/16/2023,3:01 PM * Telephone Encounter - Man Mukherjee [facility] - 09/14/2023 4:34 PM EDT Signed Prescriptions: Disp Refills Jardiance 25 MG Oral Tablet (Empagliflozin)90 Tab*1 Sig: take 1 tablet by mouth once dailyAuthorizing Provider: IRINA MITTAL User: MAN MUKHERJEE * Telephone Encounter - Jelena Simeon LPN - 09/14/2023 10:13 AM EDT Received fax from [facility] requesting office notes and forms to be completed for therapeutic shoes. Pt has not been in office since 05/08/2022. Pt will need appt for this to be completed Called pt, let message for a return call documented in this encounter Plan of Treatment Upcoming Encounters Date Type Department Care Team (Late st Contact Info) Description 12/01/2023 8:00 AM EDT Office Visit Pharmacy, [facility] [address] [facility] [place] [address] [facility] [address] [facility] [place] [address] Scheduled Orders Name Type Priority Associated Diagnoses [...] hyperlipidemia documented in this encounter Care Teams Vocal Performer Relationship Specialty Start Date End Date Irnia Mittal MD [address] [place] [address] PCP - General Family Medicine 03/19/20 documented as of this encounter
--- OUTSIDE RECORDS SUMMARY | 2023-11-15 11:00 | External Medical Summary | Summary of Care ---
Author Name Unknown Organization [facility] Address [address] [facility] [place] [address] Phone [phone] Care Team Providers Care Biometry Teacher Name Role Phone Rahat Mittal MD Primary Care Provider [phone] [phone] Reason for Visit * Reason Onset Date Comments Forms Request 10/19/2023 Encounter Details Date Type Department Care Team (Late st Contact Info) Description 10/19/2023 Telephone Family Practice [facility] [address] [place] [address] Rahat Mittal MD [address] [place] [address] Forms Request Medications Medication Sig Dispensed Refills Start Date End Date Status Diclofenac Sodium 1 % External Gel (Voltaren) apply 2 grams to affected area twice a day NEEDED FOR PAIN 100 g 1 08/11/2021 Active The Switchuch Ultra 2 w/Device Kit Use to take blood sugar E11.9 1 Kit 0 08/04/2023 Active CallystroTouch Ultra In Vitro Strip (Glucose Blood) Use to test blood sugar E11.9 100 Strip 5 08/04/2023 Active CallystroTouch Delica Lancets 33G Use to the test blood sugar once daily E11.9 100 Each 5 08/04/2023 Active Pravastatin Sodium 10 MG Oral Tablet (Pravachol) take 1 tablet by mouth at bedtime 90 Tablet 0 08/11/2023 Active Jardiance 25 MG Oral Tablet (Empagliflozin) take 1 tablet by mouth once daily 90 Tablet 1 09/14/2023 Active Trulicity 1.5 MG/0.5ML Subcutaneous Solution Pen-injector (Dulaglutide)Indic ations:Type 2 diabetes mellitus with hemoglobin A1c goal of less than 7.0% (HCC) inject 0.5 milliliters ( 1 AND 1/2 milligrams ) subcutaneously every week IN THE ABDOMEN THIGHS OR OUTER AREA OF UPPER ARM ROTATE INJECTION SITES 6 mL 1 09/28/2023 Active Losartan Potassium 25 MG Oral Tablet (Cozaar)Indication s:Type 2 diabetes mellitus with hemoglobin A1c goal of less than 7.0% (HCC) Take 1 Tablet by mouth in the morning. In the morning.. 90 Tablet 1 09/28/2023 Active documented as of this encounter (statuses as of 10/23/2023) Active Problems Problem Noted Date Diagnosed Date [...] as of this encounter (statuses as of 10/23/2023) Immunizations Name Administration Dates Next Due TDAP [...] encounter Miscellaneous Notes * Telephone Encounter - Moira Vega LPN - 10/23/2023 3:16 PM EDT Faxed yesterday * Telephone Encounter - Alessandra Falk OSA - 10/23/2023 12:38 PM EDT Mary from [facility] is calling in again regarding the form that was faxed over for Dr. Mittal to fill out and fax back. She has not heard anything and the patient is wondering where their diabetic shoes are. If you could please verify that this was received and have Dr. Mittalsign the Statement Certification Form. Mary is also needing the office notes from the patient's visit on 09/21/23 so they can fill the order for th patient. The fax number is [phone] If you have questions please contact Mary at [phone] * Telephone Encounter - Janine Torrez OSA - 10/19/2023 11:01 AM EDT Mary from [facility] is calling, they need Dr. Peters's signature on Statementof certifying physician for Diabetic shoes, they will be faxing it again to be sure you have it. Also they need the doctor note from 09/21/23. The fax number for them is [phone]. documented in this encounter Plan of Treatment Upcoming Encounters Date Type Department Care Team (Late st Contact Info) Description 12/01/2023 8:00 AM EDT Office Visit Pharmacy, [facility] [address] [place] [address] [facility] [address] [facility] [place] [address] Health Maintenance Due Date Last Done Comments [...] Not on filedocumented as of this encounter Care Teams Biometry Teacher Relationship Specialty Start Date End Date Rahat Mittal MD [address] [place] [address] PCP - General Family Medicine 03/19/20 documented as of this encounter
--- OUTSIDE RECORDS SUMMARY | 2023-11-15 11:00 | External Medical Summary | Summary of Care ---
Author Name Unknown Organization [facility] Address [address] [facility] [place] [address] Phone [phone] Care Team Providers Care Clinical Laboratory Aide Name Role Phone Irina Mittal MD Primary Care Provider [phone] Reason for Visit * Reason Onset Date Comments eRx-Medication Refill Fax 09/13/2023 Last office visi t notes from 09/20 Encounter Details Date Type Department Care Team (Late st Contact Info) Description 09/13/2023 Telephone Family Practice [facility] [address] [place] [address] Irina Mittal MD [address] [place] [address] eRx-Medication Refill; Fax (Last office vi... Allergies No known active allergiesdocumented as of this encounter (statuses as of 10/07/2023) Medications Medication Sig Dispensed Refills Start Date End Date Status Diclofenac Sodium 1 % External Gel (Voltaren) apply 2 grams to affected area twice a day NEEDED FOR PAIN 100 g 1 2 Active eriQooTouch Ultra 2 w/Device Kit Use to take [...] encounter Miscellaneous Notes * Telephone Encounter - Wilfrido Dobson OSA - 10/07/2023 3:03 PM EDT Caller requesting the following information to be faxed: Name/Company of caller: Ally with [facility] Information requested to be faxed: Last office visit notes and a statement of certifying physician form Fax number: [phone] Attention to Name/Company: [employer] Any additional information?: None * Telephone Encounter - Irina Mittal MD - 09/29/2023 5:54 PM EDT I will check. I don't have the forms that I am aware of. * Telephone Encounter - Agustina Lozano LPN - 09/29/2023 4:30 PM EDT Please check if you have these forms on your desk or they may have gone to [facility]. I believe an MD or DO has to sign the forms. * Telephone Encounter - Day Campa OSA - 09/29/2023 11:42 AM EDT [employer] called regarding the forms faxed for therapeutic shoes. I made her aware these were unable to be completed until pt was seen for an OV. Since pt was seen 09/20, please complete the forms and sendwith pt's OV notes to fax #: [phone]. * Telephone Encounter - Edel Torrez OSA [...] PM EDT Hallie has called in with [facility] states she needs most recent office notes & form to be filled out & signed by physician in regards to pt.'s order for diabetic shoes & faxed back to [phone] please advise. * Telephone Encounter - Dominique Goldstein PHARM Tech - 09/16/2023 3:01 PM EDT Patient calling to request appt with Dr. Mittal. Transferred pt to scheduling for further assistance. Thank you, Dominique Goldstein, [facility] Overhead Crane Truck Loader II Centralized Clinical Pharmacy Services(CCPS)(Formerly Telepharmacy) 09/16/2023,3:01 PM * Telephone Encounter - Man Mukherjee, [facility] - 09/14/2023 4:34 PM EDT [...] 12/01/2023 8:00 AM EDT Office Visit Pharmacy, [facility] [address] [facility] [place] [address] [facility] [address] [place] [address] Scheduled Orders Name Type Priority Associated Diagnoses [...] hyperlipidemia documented in this encounter Care Teams Clinical Laboratory Aide Relationship Specialty Start Date End Date Irina Mittal MD [address] [address] PCP - General Family Medicine 03/19/20 documented as of this encounter
--- OUTSIDE RECORDS SUMMARY | 2023-11-15 11:00 | External Medical Summary | Summary of Care ---
Author Name Unknown Organization [facility] Address [address] [facility] [place] [address] Phone [phone] Care Team Providers Care Appointment Coordinator Name Role Phone Irina Mittal MD Primary Care Provider [phone] [phone] Reason for Visit * Reason Onset Date Comments eRx-Medication Refill Fax 09/13/2023 Last office visi t notes from 09/20 Encounter Details Date Type Department Care Team (Late st Contact Info) Description 09/13/2023 Telephone Family Practice [facility] [address] [place] [address] Irina Mittal MD [address] [place] [address] eRx-Medication Refill; Fax (Last office vi... Allergies No known active allergiesdocumented as of this encounter (statuses as of 10/16/2023) Medications Medication Sig Dispensed Refills Start Date End Date Status Diclofenac Sodium 1 % External Gel (Voltaren) apply 2 grams to affected area twice a day NEEDED FOR PAIN 100 g 1 2 Active Data.com InternationalTouch Ultra 2 w/Device Kit Use to take [...] as of this encounter (statuses as of 10/16/2023) Active Problems Problem Noted Date Diagnosed Date [...] as of this encounter (statuses as of 10/16/2023) Immunizations Name Administration Dates Next Due TDAP [...] encounter Miscellaneous Notes * Telephone Encounter - Jelena Simeon LPN [...] sent over. Please fax this info to [phone] * Telephone Encounter - Wilfrido Dobson OSA - 10/07/2023 3:03 PM EDT Caller requesting the following information to be faxed: Name/Company of caller: Ally with [facility] Information requested to be faxed: Last office visit notes and a statement of certifying physician form Fax number: [phone] Attention to Name/Company: [employer] Any additional information?: None * Telephone Encounter - Irina Mittal MD - 09/29/2023 5:54 PM EDT I will check. I don't have the forms that I am aware of. * Telephone Encounter - Agustina Lozano LPN - 09/29/2023 4:30 PM EDT Please check if you have these forms on your desk or they may have gone to [facility]. I believe an MD or [...] sendwith pt's OV notes to fax #: [phone]. * Telephone Encounter - Edel Torrez OSA [...] for diabetic shoes & faxed back to [phone] please advise. * Telephone Encounter - Dominique Goldstein PHARM Tech - 09/16/2023 3:01 PM EDT Patient calling to request appt with Dr. Mittal. Transferred pt to scheduling for further assistance. Thank you, Dominique Goldstein, [facility] Guest Services Attendant II Centralized Clinical Pharmacy Services(CCPS)(Formerly Telepharmacy) 09/16/2023,3:01 PM * Telephone Encounter - Man Mukherjee [facility] - 09/14/2023 4:34 PM EDT Signed Prescriptions: Disp Refills Jardiance 25 MG Oral Tablet (Empagliflozin)90 Tab*1 Sig: take 1 tablet by mouth once dailyAuthorizing Provider: IRINA MITTAL User: MAN MUKHERJEE * Telephone Encounter - Jelena Simeon LPN - 09/14/2023 10:13 AM EDT Received fax from [facility] requesting office notes and forms to be completed for therapeutic shoes. Pt has not been in office since 05/08/2022. Pt will need appt for this to be completed Called pt, let message for a return call documented in this encounter Plan of Treatment Upcoming Encounters Date Type Department Care Team (Late st Contact Info) Description 12/01/2023 8:00 AM EDT Office Visit Pharmacy, [facility] [address] [place] [address] [facility] [address] [place] [address] Scheduled Orders Name Type Priority Associated Diagnoses [...] hyperlipidemia documented in this encounter Care Teams Appointment Coordinator Relationship Specialty Start Date End Date Irina Mittal MD [address] [place] [address] PCP - General Family Medicine 03/19/20 documented as of this encounter
--- OUTSIDE RECORDS SUMMARY | 2023-11-15 11:01 | External Medical Summary | Summary of Care ---
Author Name Unknown Organization [facility] Address [address] [place] [address] Phone [phone] Care Team Providers Care Actuarial Assistant Name Role Phone Rahat Mittal MD Primary Care Provider [phone] Reason for Visit * Reason Onset Date Comments Mycode - Thinking About It But No Form Provided 09/21/2023 Encounter Details Date Type Department Care Team (Late st Contact Info) Description 09/21/2023 Orders Only Outcomes Research Department [address] [place] [address] Veronica Mendez CHRA MyCode Nonconsent Documentation Allergies No known active allergiesdocumented as of this encounter (statuses as of 09/21/2023) Medications Medication Sig Dispensed Refills Start Date End Date Status Diclofenac Sodium 1 % External Gel (Voltaren) apply 2 grams to affected area twice a day NEEDED FOR PAIN 100 g 1 08/11/2021 Active Trulicity 1.5 MG/0.5ML Subcutaneous Solution Pen-injector (Dulaglutide)Indic ations:Type 2 diabetes mellitus with hemoglobin A1c goal of less than 7.0% ([facility]) inject 0.5 milliliters ( 1 AND 1/2 milligrams ) subcutaneously every week IN THE ABDOMEN THIGHS OR OUTER AREA OF UPPER ARM ROTATE INJECTION SITES 6 mL 3 03/22/2023 Active VusayTouch Ultra 2 w/Device Kit Use to take blood sugar E11.9 1 Kit 0 08/04/2023 Active VusayTouch Ultra In Vitro Strip (Glucose Blood) Use to test blood sugar E11.9 100 Strip 5 08/04/2023 Active [employer] Delica Lancets 33G Use to the test blood sugar once daily E11.9 100 Each 5 08/04/2023 Active Pravastatin Sodium 10 MG Oral Tablet (Pravachol) take 1 tablet by mouth at bedtime 90 Tablet 0 08/11/2023 Active Losartan Potassium 25 MG Oral Tablet (Cozaar)Indication s:Type 2 diabetes mellitus with hemoglobin A1c goal of less than 7.0% (HCC) take 1 tablet by mouth every morning 90 Tablet 0 08/11/2023 Active Jardiance 25 MG Oral Tablet (Empagliflozin) take 1 tablet by mouth once daily 90 Tablet 1 09/14/2023 Active documented as of this encounter (statuses as of 09/21/2023) Active Problems Problem Noted Date Diagnosed Date HTN, goal below 130/80 11/15/2019 Type 2 diabetes mellitus wit h hemoglobin A1c goal of less than 7.0% 05/02/2019 Dyslipidemia 05/02/2019 Morbid obesity due to excess calories 04/26/2019 documented as of this encounter (statuses as of 09/21/2023) Resolved Problems Problem Noted Date Diagnosed Date Resolved Date Body mass index (BMI) of 40. 0 to 44.9 in adult 04/16/2020 07/31/2020 Overview: Per Obesity protocol documented as of this encounter (statuses as of 09/21/2023) Immunizations Name Administration Dates Next Due TDAP [...] on file documented as of this encounter Progress Notes * Veronica Mendez CHRA - 09/21/2023 11:08 AM EDT MyCode Nonconsent Documentation Efe Valera was approached in the clinic regarding participation in the MyCode Project and did not consent. documented in this encounter Plan of Treatment Upcoming Encounters Date Type Department Care Team (Late st Contact Info) Description 12/01/2023 8:00 AM EDT Office Visit Pharmacy, [facility] [address] [place] [address] [facility] [address] [place] [address] Health Maintenance Due Date Last Done Comments [...] filedocumented as of this encounter Care Teams Actuarial Assistant Relationship Specialty Start Date End Date Rahat Mittal MD [address] [place] [address] PCP - General Family Medicine 03/19/20 documented as of this encounter
--- OUTSIDE RECORDS SUMMARY | 2023-11-15 11:01 | External Medical Summary | Summary of Care ---
Author Name Unknown Organization [facility] Address [address] [facility] [place] [address] Phone [phone] Care Team Providers Care Smt Operator Name Role Phone Rahat Mittal MD Primary Care Provider [phone] Reason for Visit * Reason Comments Return Visit Encounter Details Date Type Department Care Team (Late st Contact Info) Description 09/21/2023 11:20 AM EDT Office Visit [facility] [address] [place] [address] Dipti Clayton CRNP [address] [place] [address] Type 2 diabetes mellitus with hemoglobin A1c goal of less than 7.0% ([facility])*; BMI 40.0-44.9, adult (HCC); Type 2 diabetes mellitus with foot ulcer, without long-term current use of insulin (HCC); Screen for colon cancer; HTN, goal below 130/80; Dyslipidemia Allergies No known active allergiesdocumented as of [...] goal of less than 7.0% ([facility]) inject 0.5 milliliters ( 1 AND 1/2 milligrams ) subcutaneously every week IN THE ABDOMEN THIGHS OR OUTER AREA OF UPPER ARM ROTATE INJECTION SITES 6 mL 3 03/22/2023 Active Semantics3 Ultra 2 w/Device Kit Use to take blood sugar E11.9 1 Kit 0 08/04/2023 Active Semantics3 Ultra In Vitro Strip (Glucose Blood) Use to test blood sugar E11.9 100 Strip 5 08/04/2023 Active Semantics3 Delica Lancets 33G Use to the test [...] on file documented as of this encounter Last Filed Vital Signs Vital Sign Reading Time Taken Comments Blood Pressure 122/74 09/21/2023 11:09 AM EDT Pulse 93 09/21/2023 11:09 AM EDT Temperature 36.6 C (97.9 F) 09/21/2023 1 1:09 AM EDT Respiratory Rate - - Oxygen Saturation 98% 09/21/2023 11: 09 AM EDT Inhaled Oxygen Concentration - - Weight 145.9 kg (321 lb 11.2 oz) 2023 11:09 AM EDT Height 182.9 cm (6') 09/21/2023 11:09 AM EDT Body Mass Index 43.63 09/21/2023 11:09 AM EDT documented in this encounter Patient Instructions * Patient Instructions* Neelima Rodriguez LPN - 09/21/2023 11:11 AM EDT Diabetes: Keeping Feet Healthy Inspect your feet every day for signs of a problem. Diabetes can damage nerves in your feet and cause neuropathy. This condition makes it hard for you to feel injuries or sore spots. Diabetes can also change blood flow, making it harder for small problems, like a blister, to heal properly. In fact, minor injuries can quickly become serious infections that send you to the hospital. Practice self-care to protect your feet and keep them healthy. Take Special Care Inspect your feet daily for problems such as redness, blisters, cracks, dry skin, or numbness. Use a mirror to see the bottoms of your feet. Or, ask for help. Manage your diabetes. Monitor and control your blood sugar. Take all your medications as prescribed. Avoid walking barefoot, even indoors. Wash your feet with warm water and mild soap. Dry well, especially between toes. Dont treat corns or calluses yourself. Talk to your doctor or roller embosser (a doctor who specializes in foot care) if you need assistance trimming your toenails. Use moisturizing cream or lotion if you have dry skin, but dont use it between toes. Dont use heating pads on your feet. If you have neuropathy, you could get a burn and not feel it. Stop smoking. Smoking restricts blood flow and can make it harder for wounds to heal. Have Regular Checkups Foot problems can develop quickly. So be sure to follow your healthcare teams schedule for regular checkups. During office visits, take off your shoes and socks as soon as you get in the exam room. Ask your healthcare provider to examine your feet for problems. This will make it easier to find and treat small skin irritations before they get worse. Regular checkups can also help keep track of the blood flow and feeling in your feet. If you have neuropathy, you may need to have checkups more often. Wear Proper Footwear Wearing proper footwear is very important. If areas of your feet have been damaged by too much pressure, your healthcare provider may recommend changing your footwear. In some cases, avoiding high heels or tight work boots may be all thats needed. Or, your healthcare provider may recommend special shoes or custom inserts. These help protect your feet and keep existing irritations from getting worse. If you need special footwear, ask your healthcare provider if you qualify for [employer] diabetic shoe program. Make Sure Shoes and Socks Fit Any pair of shoes--new or old--should feel comfortable as soon as you put them on. There shouldnt be any rubbing when you walk. Wear the right shoe for any activity. For instance, a running shoe is designed to keep your feet injury-free while jogging. Buy shoes at the end of the day, when your feet are larger. Make sure they provide support without feeling too loose. Make sure your socks fit, t oo. Wear soft, seamless, well-padded socks for activity. Cotton or microfiber socks are best to help to absorb sweat. To protect your feet, avoid shoes that are open-toed or open-heeled. If you have questions about what kinds of shoes and socks are best, talk to your healthcare team. Get Regular Exercise Regular exercise improves blood flow in your feet. It also increases foot strength and flexibility.Gentle exercises, like walking or riding a stationary bicycle, are best. You can also do special foot exercises. Just be sure to talk with your healthcare provider before starting any exercise program. Also mention if any exercise causes pain, redness, or other signs of foot problems. Note: If you have any kind of break in the skin of your foot or ankle, keep the area clean. Then call your doctor--especially if the area doesnt appear to be healing. 2797-8058 [employer], [address] [place] [address], [place] [address]. All rights reserved. This information is not intended as a substitute for professional medical care. Always follow your healthcare professional's instructions. documented in this encounter Progress Notes * Dipti Clayton CRNP - 09/21/2023 11:24 AM EDT Images from the original note were not included. History of Present Illness Efe Valera is a 48 year old male that presents for Return Visit HPI Here for diabetic shoe insert order. Follows with [facility] for DM. Currently on jardiance and trulicity with recent A1c 7.4%. Hx osteomyelitis follows with [facility] in [place]. Has had ulcer for last 3 years but almost completely healed -- very small "crack" of skin still present. Follows with Kylah Velasquez in [place] -- has an appointment coming up in November. Has recheck labs ordered for next visit in November - incl lipids and A1c. Declines colon cancer screening today. Outpatient Medications Marked as Taking for the 09/21/23 encounter (Office Visit) with Dipti Clayton CRNP Medication Sig Jardiance 25 MG Oral Tablet (Empagliflozin) take 1 tablet by mouth once daily Losartan Potassium 25 MG Oral Tablet (Cozaar) take 1 tablet by mouth every morning Pravastatin Sodium 10 MG Oral Tablet (Pravachol) take 1 tablet by mouth at bedtime [employer] Delica Lancets 33G Use to the test blood sugar once daily E11.9 OneTouch Ultra 2 w/Device Kit Use to take blood sugar E11.9 OneTouch Ultra In Vitro Strip (Glucose Blood) Use to test blood sugar E11.9 Trulicity 1.5 MG/0.5ML Subcutaneous Solution Pen-injector (Dulaglutide) inject 0.5 milliliters ( 1 AND 1/2 milligrams ) subcutaneously every week IN THE ABDOMEN THIGHS OR OUTER AREA OF UPPER ARM ROTATE INJECTION SITES Diclofenac Sodium 1 % External Gel (Voltaren) apply 2 grams to affected area twice a day NEEDED FOR PAIN Physical Exam Vitals: 09/21/23 1109 Temp: 36.6 C (97.9 F) Pulse: 93 SpO2: 98% BP: 122/74 BMI: 43.62 Physical Exam Vitals reviewed. Constitutional: Appearance: Normal appearance. HENT: Head: Normocephalic and atraumatic. Right Ear: Tympanic membrane, ear canal and external ear normal. Left Ear: Tympanic membrane, ear canal and external ear normal. Nose: Nose normal. Mouth/Throat: Mouth: Mucous membranes are moist. Eyes: Extraocular Movements: Extraocular movements intact. Conjunctiva/sclera: Conjunctivae normal. Pupils: Pupils are equal, round, and reactive to light. Cardiovascular: Rate and Rhythm: Normal rate and regular rhythm. Heart sounds: Normal heart sounds. Pulmonary: Effort: Pulmonary effort is normal. Breath sounds: Normal breath sounds. Abdominal: General: There is no distension. Palpations: Abdomen is soft. Tenderness: There is no abdominal tenderness. Musculoskeletal: Cervical back: Neck supple. Right lower leg: No edema. Left lower leg: No edema. Lymphadenopathy: Cervical: No cervical adenopathy. Skin: General: Skin is warm and dry. Capillary Refill: Capillary refill takes less than 2 seconds. Findings: No rash. Neurological: Mental Status: He is alert and oriented to person, place, and time. Psychiatric: Behavior: Behavior normal. Thought Content: Thought content normal. Assessment and Plan Type 2 diabetes mellitus with hemoglobin A1c goal of less than 7.0% ([facility]) Follows [facility] -- recheck labs ordered - DIABETES FOOT EXAM - ALBUMIN / CREATININE RATIO, URINE; Future - DIABETIC SHOE DENSITY INSERT BMI 40.0-44.9, adult ([facility]) Enc diet/lifestyle modifications Type 2 diabetes mellitus with foot ulcer, without long-term current use of insulin ([facility]) - DIABETIC SHOE DENSITY INSERT Screen for colon cancer Declines -- discussed risk of colon cancer and benefit of screening for early detection Will consider at next visit HTN, goal below 130/80 At goal Recent labs reviewed Dyslipidemia Recheck labs ordered On statin Wrap-Up Follow Up: Return in about 6 months (around 03/22/2024) for Return with Physician. | For: Return with Physician Time: I spent a total of 20-29 minutes (exact time 25 mins) on the date of service in preparation, delivery, and documentation of the care provided to Efe Valera excluding any time spent in the performance of separately billed services. * Neelima Rodriguez LPN - 09/21/2023 11:07 AM EDT The patient has been properly identified by confirmation of name and date of . Chief Complaint Patient presents with Return Visit Pt needs order for diabetic shoe INSOLES. Has never had them before. Would like to use [facility] in [place] Socks and Shoes Removed for Annual Diabetic Foot Screening RIGHT FOOT: Area of Concern: healing hole in plantar surface of foor from "charcos" . RIGHT Dorsalis Pedis Pulse: Palpable RIGHT Posterior Tibial Pulse: Palpable RIGHT Monofilament:Patient reports difficulty feeling monofilament at Third toe- plantar surface, Ball of Foot-base of great toe, Ball of Foot-base of 3rd toe, and Ball of Foot-base of little toe LEFT FOOT: No Reddened, Cracking or Open Areas Noted. LEFT Dorsalis Pedis Pulse: Palpable LEFT Posterior Tibial Pulse: Palpable LEFT Monofilament:Patient reports difficulty feeling monofilament at Great toe- plantar surface, Third toe-plantar surface, Ball of Foot-base of great toe, Ball of Foot-base of 3rd toe, and Ball of Foot-base of little toe Do you need diabetic shoes: Yes DM Foot Exam completed today. Provider aware. Neelima Rodriguez LPN Urine albumin/creatinine ratio ordered today. Provider aware. documented in this encounter Plan of Treatment Upcoming Encounters Date Type Department Care Team (Late st Contact Info) Description 12/01/2023 8:00 AM EDT Office Visit Pharmacy, [facility] [address] [facility] [place] [address] [facility] [address] [facility] [place] [address] Scheduled Orders Name Type Priority Associated Diagnoses Orde r Schedule ALBUMIN / CREATININE RATIO, URINE Lab Routine Type 2 diabetes mellitus with hemoglobin A1c goal of less than 7.0% (HCC) Expected: 09/21/2023, Expires: 09/20/2024 Health Maintenance Due Date Last [...] hemoglobin A1c goal of less than 7.0% (HCC)- Primary BMI 40.0-44.9, adult (HCC) Body Mass Index 40.0-44.9, adult Type 2 diabetes mellitus with foot ulcer, without long-term current use of insulin (HCC) Screen for colon cancer Special screening for malignant neoplasms, colon HTN, goal below 130/80 Unspecified essential hypertension Dyslipidemia Other and unspecified hyperlipidemia documented in this encounter Care Teams Smt Operator Relationship Specialty Start Date End Date Rahat Mittal MD [address] [place] [address] PCP - General Family Medicine 03/19/20 documented as of this encounter
--- OUTSIDE RECORDS SUMMARY | 2023-11-15 11:01 | External Medical Summary | Summary of Care ---
Author Name Unknown Organization [facility] Address [address] [facility] [place] [address] Phone [phone] Care Team Providers Care Press Operator Helper Name Role Phone Irina Rose MD Primary Care Provider [phone] Reason for Visit * Reason Comments eRx-Medication Refill Encounter Details Date Type Department Care Team (Late st Contact Info) Description 08/09/2023 Refill Family Practice [facility] [address] [place] [address] Irina Rose MD [address] [place] [address] Type 2 diabetes mellitus with hemoglobin A1c goal of less than 7.0% ([facility]) Allergies No known active allergiesdocumented as of this encounter (statuses as of 08/23/2023) Medications Medication Sig Dispensed Refills Start Date [...] INJECTION SITES 6 mL 3 3 Active Jardiance 25 MG Oral Tablet (Empagliflozin) take 1 tablet by mouth once daily 90 Tablet 0 4 Active [employer]reme[employer] Ultra 2 w/Device Kit Use to take blood sugar E11.9 1 Kit 0 4 Active [employer] Ultra In Vitro Strip (Glucose Blood) Use to test blood sugar E11.9 100 Strip 5 4 Active [employer]Touch Delica Lancets 33G Use to the test [...] every morning 90 Tablet 0 4 Active Losartan Potassium 25 MG Oral Tablet (Cozaar)Indicatio ns:Type 2 diabetes mellitus with hemoglobin A1c goal of less than 7.0% (HCC) take 1 tablet by mouth every morning 90 Tablet 0 3 08/11/19 24 Discontinued Pravastatin Sodium 10 MG Oral Tablet (Pravachol) take 1 tablet by mouth at bedtime 90 Tablet 0 3 08/11/19 24 Discontinued documented as of this encounter (statuses as of 08/23/2023) Active Problems Problem Noted Date Diagnosed Date HTN, goal below 130/80 11/15/2019 Type 2 diabetes mellitus wit h hemoglobin A1c goal of less than 7.0% 05/02/2019 Dyslipidemia 05/02/2019 Morbid obesity due to excess calories 04/26/2019 documented as of this encounter (statuses as of 08/23/2023) Resolved Problems Problem Noted Date Diagnosed Date Resolved Date Body mass index (BMI) of 40. 0 to 44.9 in adult 04/16/2020 07/31/2020 Overview: Per Obesity protocol documented as of this encounter (statuses as of 08/23/2023) Immunizations Name Administration Dates Next Due TDAP [...] encounter Miscellaneous Notes * Telephone Encounter - Arin Gonsalez straight edger - 08/11/2023 8:26 AM EST Left VM for pt to call PCP office so he can schedule OV. Thank you, Arin Gonsalez, Senior Internet Sales Consultant [facility] ([facility]) 08/11/2023,8:26 AM * Telephone Encounter - Eleazar Pritchett [facility] - 08/11/2023 5:51 AM ESTSigned Prescriptions: Disp Refills Pravastatin Sodium 10 MG Oral Tablet (Prav*90 Tab*0 Sig: take 1 tablet by mouth at bedtime Authorizing Provider: IRINA ROSE Ordering User: ELEAZAR PRITCHETT Losartan Potassium 25 MG Oral Tablet (Coza*90 Tab*0 Sig: take 1 tablet by mouth every morning Authorizing Provider: IRINA ROSE Ordering User: ELEAZAR PRITCHETT NN * Telephone Encounter - Eleazar Pritchett RP - 08/11/2023 5:50 AM EST 3rd attempt Please contact patient so that an appointment can be scheduled with his PRIMARY CARE provider. Refill authorized to hold patient over in the mean time. Last Visit: 05/08/2022 (in office), Visit date not found (telemedicine) Next Visit: Visit date not found Thank you, Eleazar Pritchett, Cesar. Clinical Pharmacist [facility] ([facility]) 08/11/2023, 5:50 AM * Telephone Encounter - Arin Gonsalez, straight edger - 08/10/2023 3:24 PM EST Pending Prescriptions: Disp Refills Pravastatin Sodium 10 MG Oral Tablet [Phar*90 Tab*0 Sig: take 1 tablet by mouth at bedtime Losartan Potassium 25 MG Oral Tablet [Phar*90 Tab*0 Sig: take 1 tablet by mouth every morning * Telephone Encounter - Arin Gonsalez straight edger - 08/10/2023 3:23 PM EST Did you pend patient's preferred pharmacy and medication before forwarding?yes Pharmacy: [id number] Pending Prescriptions: Disp Refills Pravastatin Sodium 10 MG Oral Tablet (Pra*90 Tab*0 Sig: take 1 tablet by mouth at bedtime Losartan Potassium 25 MG Oral Tablet (Coz*90 Tab*0 Sig: take 1 tablet by mouth every morning Last Visit: 05/08/2022 (in office), Visit date not found (telemedicine) Next Visit: Visit date not found If no future appointments scheduled, and last appointment is greater than a year ago, please schedule patient for a follow-up appointment Last date the medication was ordered: 05/08/23 Is this request for a controlled substance?No [...] 12/01/2023 8:00 AM EDT Office Visit Pharmacy, [facility] [address] [facility] [place] [address] [facility] [address] [place] [address] Health Maintenance Due Date Last Done Comments Pneumococcal Vaccine: Pediatrics (0 to 5 Years) and At-Risk Patients (6 to 64 Years) (1 of 2 - PCV) 1983 Hepatitis B (1 of 3 - 19+ 3-dose series) 1996 Depression Screening 07/31/2021 07/31/2020 Diabetic Foot Exam 08/23/2021 08/23/2020 Cologuard 2022 Colonoscopy 2022 Colorectal Cancer Screening 2022 Fecal Occult Blood Test 2022 Sigmoidoscopy 2022 Diabetic Eye Exam 11/27/2022 11/27/2021, , 11/14/2020, Additional history exists COVID-19 Vaccine (2022- season) 2023 Influenza Vaccine (FLU shot) (#1) 2023 Albumin/Creatinine Ratio 06/28/2023 023, 04/18/2022, 03/20/2021 HbA1c 01/11/2024 07/13/2023, 0811/2022, 06/28/2022, Additional history exists B-12 01/22/2024 01/21/2023, 11/08, 08/23/2020 GFR 07/13/2024 07/13/2023, 07/10, 07/26/2022, Additional history exists Lipid Panel 06/28/2027 06/28/2022, 08/0 01/2022, 12/05/2021, [...] (HCC) documented in this encounter Care Teams Press Operator Helper Relationship Specialty Start Date End Date Irina Rose MD [address] [place] [address] PCP - General Family Medicine 03/19/20 documented as of this encounter
--- OUTSIDE RECORDS SUMMARY | 2023-11-15 11:01 | External Medical Summary | Summary of Care ---
Author Name Unknown Organization [facility] Address [address] [facility] [address] Phone [phone] Care Team Providers Care Wharf Worker Name Role Phone Irina Rose MD Primary Care Provider [phone] [phone] Reason for Visit * Reason Comments eRx-Medication Refill Encounter Details Date Type Department Care Team (Late st Contact Info) Description 09/13/2023 Refill Family Practice [facility] [address] [place] [address] Irina Rose MD [address] [place] [address] Dyslipidemia* Allergies No known active allergiesdocumented as of this encounter (statuses as of 09/14/2023) Medications Medication Sig Dispensed Refills Start Date End Date Status Diclofenac Sodium 1 % External Gel (Voltaren) apply 2 grams to affected area twice a day NEEDED FOR PAIN 100 g 1 2 Active Trulicity 1.5 MG/0.5ML Subcutaneous Solution Pen-injector (Dulaglutide)Jaja cations:Type 2 diabetes mellitus with hemoglobin A1c goal of less than 7.0% ([facility]) inject 0.5 milliliters ( 1 AND 1/2 milligrams ) subcutaneously every week IN THE ABDOMEN THIGHS OR OUTER AREA OF UPPER ARM ROTATE INJECTION SITES 6 mL 3 3 Active Popegouch Ultra 2 w/Device Kit Use to take blood sugar E11.9 1 Kit 0 4 Active TATE'S LISTTouch Ultra In Vitro Strip (Glucose Blood) Use [...] as of this encounter (statuses as of 09/14/2023) Active Problems Problem Noted Date Diagnosed Date HTN, goal below 130/80 11/15/2019 Type 2 diabetes mellitus wit h hemoglobin A1c goal of less than 7.0% 05/02/2019 Dyslipidemia 05/02/2019 Morbid obesity due to excess calories 04/26/2019 documented as of this encounter (statuses as of 09/14/2023) Resolved Problems Problem Noted Date Diagnosed Date Resolved Date Body mass index (BMI) of 40. 0 to 44.9 in adult 04/16/2020 07/31/2020 Overview: Per Obesity protocol documented as of this encounter (statuses as of 09/14/2023) Immunizations Name Administration Dates Next Due TDAP [...] encounter Miscellaneous Notes * Telephone Encounter - Ovi Combs [facility] - 09/14/2023 4:34 PM EDT Signed Prescriptions: Disp Refills Jardiance 25 MG Oral Tablet (Empagliflozin)90 Tab*1 Sig: take 1 tablet by mouth once dailyAuthorizing Provider: IRINA ROSE User: OVI COMBS * Telephone Encounter - Jelena Simeon LPN - 09/14/2023 10:13 AM EDT Received fax from [facility] requesting office notes and forms [...] 12/01/2023 8:00 AM EDT Office Visit Pharmacy, [facility] [address] [place] [address] [facility] [address] [place] [address] Scheduled Orders Name Type Priority Associated Diagnoses [...] 06/28/2023 023, 04/18/2022, 03/20/2021 HbA1c 01/11/2024 07/13/2023, 08/1 11/2022, 06/28/2022, Additional history exists B-12 01/22/2024 01/21/2023, [...] hyperlipidemia documented in this encounter Care Teams Wharf Worker Relationship Specialty Start Date End Date Irina Rose MD [address] [place] [address] PCP - General Family Medicine 03/19/20 documented as of this encounter
--- OUTSIDE RECORDS SUMMARY | 2023-11-15 11:01 | External Medical Summary ---
Author Name Unknown Address Unknown Organization K01:[facility] - [address] [place] [address] Laboratory Report Ordering Provider Test Date Status MARILYN MERINO 07/13/2023 07:31:33 Final Observation Date Value Abnormality Reference (Units ) Status HbA1C 07/13/2023 07:31:33 7.4 Above high normal 4. 0-5.6 (%) Final The use of HbA1c to monitor glycemic status is based on normal hemoglobin and HbA composition. This test should not be used in patients with abnormal hemoglobin that affects the half life of the red blood cell or the in vivo glycation rates. Glucose, estimated average 07/13/2023 07:31:33 166 Above high normal <126 (mg/dL) Willard donohue Performing Location [facility] - [address] [place] [address]
--- OUTSIDE RECORDS SUMMARY | 2023-11-15 11:01 | External Medical Summary | Summary of Care ---
Author Name Unknown Organization [facility] Address [address] [facility] [place] [address] Phone [phone] Care Team Providers Care Dough Mixing Machine Operator Name Role Phone Irina Rose MD Primary Care Provider [phone] [phone] Reason for Visit * Reason Onset Date Comments eRx-Medication Refill Fax 09/13/2023 Encounter Details Date Type Department Care Team (Late st Contact Info) Description 09/13/2023 Telephone Family Practice [facility] [address] [employer] [address] [place] [address] Irina Rose MD [address] [employer] [place] [address] eRx-Medication Refill; Fax Allergies No known active [...] hemoglobin A1c goal of less than 7.0% ([facility]) inject 0.5 milliliters ( 1 AND [...] PM EDT Hallie has called in with [facility] states she needs most recent office notes & form to be filled out & signed by physician in regards to pt.'s order for diabetic shoes & faxed back to [phone] please advise. * Telephone Encounter - Dominique Goldstein PHARM Tech - 09/16/2023 3:01 PM EDT Patient calling to request appt with Dr. Rose. Transferred pt to scheduling for further assistance. Thank you, Dominique Goldstein, [facility] Director Of Enrollment II Centralized Clinical Pharmacy Services(CCPS)(Formerly Telepharmacy) 09/16/2023,3:01 PM * Telephone Encounter - Ovi Combs [facility] - 09/14/2023 4:34 PM EDT Signed Prescriptions: Disp Refills Jardiance 25 MG Oral Tablet (Empagliflozin)90 Tab*1 Sig: take 1 tablet by mouth once dailyAuthorizing Provider: IRINA ROSE User: OVI COMBS * Telephone Encounter - Jelena Simeon LPN - 09/14/2023 10:13 AM EDT Received fax from [facility] requesting office notes and forms to be completed for therapeutic shoes. Pt has not been in office since 05/08/2022. Pt will need appt for this to be completed Called pt, let message for a return call documented in this encounter Plan of Treatment Upcoming Encounters Date Type Department Care Team (Late st Contact Info) Description 12/01/2023 8:00 AM EDT Office Visit Pharmacy, [facility] [address] [facility] [place] [address] [facility] [address] [place] [address] Scheduled Orders Name Type Priority Associated Diagnoses [...] hyperlipidemia documented in this encounter Care Teams Dough Mixing Machine Operator Relationship Specialty Start Date End Date Irina Rose MD [address] [place] [address] PCP - General Family Medicine 03/19/20 documented as of this encounter
--- OUTSIDE RECORDS SUMMARY | 2023-11-15 11:01 | External Medical Summary | Summary of Care ---
Author Name Unknown Organization [facility] Address [address] [facility] [place] [address] Phone [phone] Care Team Providers Care Morning News Producer Name Role Phone Rahat Mittal MD Primary Care Provider [phone] Encounter Details Date Type Department Care Team (Late st Contact Info) Description 09/18/2023 Orders Only PATIENT PORTAL DO NOT DELETE THIS DEPT USED BY [place] [id number] Allergies No known active allergiesdocumented as of this encounter (statuses as of 09/18/2023) Medications Medication Sig Dispensed Refills Start Date End Date Status Diclofenac Sodium 1 % External Gel (Voltaren) apply 2 grams to affected area twice a day NEEDED FOR PAIN 100 g 1 08/11/2021 Active Trulicity 1.5 MG/0.5ML Subcutaneous Solution Pen-injector (Dulaglutide)Indic ations:Type 2 diabetes mellitus with hemoglobin A1c goal of less than 7.0% ([facility]) inject 0.5 milliliters ( 1 AND 1/2 milligrams ) subcutaneously every week IN THE ABDOMEN THIGHS OR OUTER AREA OF UPPER ARM ROTATE INJECTION SITES 6 mL 3 03/22/2023 Active Zagsteruch Ultra 2 w/Device Kit Use to take blood sugar E11.9 1 Kit 0 08/04/2023 Active GridsumTouch Ultra In Vitro Strip (Glucose Blood) Use to test blood sugar E11.9 100 Strip 5 08/04/2023 Active GridsumTouch Delica Lancets 33G Use to the test [...] as of this encounter (statuses as of 09/18/2023) Active Problems Problem Noted Date Diagnosed Date HTN, goal below 130/80 11/15/2019 Type 2 diabetes mellitus wit h hemoglobin A1c goal of less than 7.0% 05/02/2019 Dyslipidemia 05/02/2019 Morbid obesity due to excess calories 04/26/2019 documented as of this encounter (statuses as of 09/18/2023) Resolved Problems Problem Noted Date Diagnosed Date Resolved Date Body mass index (BMI) of 40. 0 to 44.9 in adult 04/16/2020 07/31/2020 Overview: Per Obesity protocol documented as of this encounter (statuses as of 09/18/2023) Immunizations Name Administration Dates Next Due TDAP [...] on file documented as of this encounter Plan of Treatment Upcoming Encounters Date Type Department Care Team (Late st Contact Info) Description 09/21/2023 11:20 AM EDT Office Visit [facility] [address] [facility] [address] Dipti Clayton CRNP [address] [place] [address] 12/01/2023 8:00 AM EDT Office Visit Pharmacy, [facility] [address] [place] [address] [facility] [address] [place] [address] Health Maintenance Due Date Last Done Comments [...] filedocumented as of this encounter Care Teams Morning News Producer Relationship Specialty Start Date End Date Rahat Mittal MD [address] [place] [address] PCP - General Family Medicine 03/19/20 documented as of this encounter
--- OUTSIDE RECORDS SUMMARY | 2023-11-15 11:01 | External Medical Summary | Summary of Care ---
Author Name Unknown Organization [facility] Address [address] [facility] [place] [address] Phone [phone] Care Team Providers Care Rehabilitation Technician Name Role Phone Irina Rose MD Primary Care Provider [phone] [phone] Reason for Visit * Reason Comments eRx-Medication Refill Encounter Details Date Type Department Care Team (Late st Contact Info) Description 08/09/2023 Refill Family Practice [facility] [address] [place] [address] Irina Rose MD [address] [place] [address] Type 2 diabetes mellitus with hemoglobin A1c goal of less than 7.0% ([facility]) Allergies No known active allergiesdocumented as of this encounter (statuses as of 08/11/2023) Medications Medication Sig Dispensed Refills Start Date [...] once daily 90 Tablet 0 4 Active OneToHangar Seven Ultra 2 w/Device Kit Use to take blood sugar E11.9 1 Kit 0 4 Active OnCore BiopharmaTouch Ultra In Vitro Strip (Glucose Blood) Use to test blood sugar E11.9 100 Strip 5 4 Active OnCore BiopharmaTouch Delica Lancets 33G Use to the test [...] as of this encounter (statuses as of 08/11/2023) Active Problems Problem Noted Date Diagnosed Date HTN, goal below 130/80 11/15/2019 Type 2 diabetes mellitus wit h hemoglobin A1c goal of less than 7.0% 05/02/2019 Dyslipidemia 05/02/2019 Morbid obesity due to excess calories 04/26/2019 documented as of this encounter (statuses as of 08/11/2023) Resolved Problems Problem Noted Date Diagnosed Date Resolved Date Body mass index (BMI) of 40. 0 to 44.9 in adult 04/16/2020 07/31/2020 Overview: Per Obesity protocol documented as of this encounter (statuses as of 08/11/2023) Immunizations Name Administration Dates Next Due TDAP [...] Notes * Telephone Encounter - Arin Gonsalez home health speech therapist - 08/11/2023 8:26 AM EST Left VM for pt to call PCP office so he can schedule OV. Thank you, Arin Gonsalez, Lockstitch Lining Setter Central[facility] Clinical Pharmacy Services (CCPS) (Formerly Telepharmacy) 08/11/2023,8:26 AM * Telephone Encounter - Eleazar Pritchett [facility] - 08/11/2023 5:51 AM ESTSigned [...] AM * Telephone Encounter - Arin Gonsalez, home health speech therapist - 08/10/2023 3:24 PM EST Pending Prescriptions: Disp Refills Pravastatin Sodium 10 MG Oral Tablet [Phar*90 Tab*0 Sig: take 1 tablet by mouth at bedtime Losartan Potassium 25 MG Oral Tablet [Phar*90 Tab*0 Sig: take 1 tablet by mouth every morning * Telephone Encounter - Arin Gonsalez home health speech therapist - 08/10/2023 3:23 PM EST Did you pend patient's preferred pharmacy and medication before forwarding?yes Pharmacy: [facility] [id number] Pending Prescriptions: Disp Refills Pravastatin Sodium [...] 12/01/2023 8:00 AM EDT Office Visit Pharmacy, [facility] 132 [facility] [place] [address] [facility] [address] [place] [address] Health Maintenance Due Date Last Done Comments [...] (HCC) documented in this encounter Care Teams Rehabilitation Technician Relationship Specialty Start Date End Date Irina Rose MD [address] [place] [address] PCP - General Family Medicine 03/19/20 documented as of this encounter
--- OUTSIDE RECORDS SUMMARY | 2023-11-15 11:01 | External Medical Summary | Summary of Care ---
Author Name Unknown Organization [facility] Address [address] [facility] [place] [address] Phone [phone] Care Team Providers Care Criminal Justice Teacher Name Role Phone Irina Rose MD Primary Care Provider [phone] [phone] Reason for Visit * Reason Onset Date Comments eRx-Medication Refill Fax 09/13/2023 Encounter Details Date Type Department Care Team (Late st Contact Info) Description 09/13/2023 Telephone Family Practice [facility] [address] [employer] [address] [place] [address] Irina Rose MD [address] [employer] [place] [address] eRx-Medication Refill; Fax Allergies No known active [...] hemoglobin A1c goal of less than 7.0% ([facility]) inject 0.5 milliliters ( 1 AND [...] pt to call back for an appt * Telephone Encounter - Moira Vega LPN - 09/22/2023 10:01 AM EDT Patient has not been seen since May 2022. Will need OV prior to completion of form. * Telephone Encounter - Adele Martel OSA - 09/21/2023 1:23 PM EDT Hallie has called in with [facility] states she needs most recent office notes & form to be filled out & signed by physician in regards to pt.'s order for diabetic shoes & faxed back to [phone] please advise. * Telephone Encounter - Dominique Goldstein PHARM Tech - 09/16/2023 3:01 PM EDT Patient calling to request appt with Dr. Rose. Transferred pt to scheduling for further assistance. Thank you, Dominique Goldstein, [facility] Record Tabulating Clerk II Centralized Clinical Pharmacy Services(CCPS)(Formerly Telepharmacy) 09/16/2023,3:01 PM * Telephone Encounter - Ovi Combs [facility] - 09/14/2023 4:34 PM EDT Signed Prescriptions: Disp Refills Jardiance 25 MG Oral Tablet (Empagliflozin)90 Tab*1 Sig: take 1 tablet by mouth once dailyAuthorizing Provider: IRINA ROSE User: OVI COMBS * Telephone Encounter - Jelena Simeon LPN - 09/14/2023 10:13 AM EDT Received fax from [facility] requesting office notes and forms to be completed for therapeutic shoes. Pt has not been in office since 05/08/2022. Pt will need appt for this to be completed Called pt, let message for a return call documented in this encounter Plan of Treatment Upcoming Encounters Date Type Department Care Team (Late st Contact Info) Description 12/01/2023 8:00 AM EDT Office Visit Pharm[facility], [facility] [address] [facility] 132 [facility] [place] [address] Scheduled Orders Name Type Priority Associated Diagnoses [...] hyperlipidemia documented in this encounter Care Teams Criminal Justice Teacher Relationship Specialty Start Date End Date Irina Rose MD [address] [place] [address] PCP - General Family Medicine 03/19/20 documented as of this encounter
--- OUTSIDE RECORDS SUMMARY | 2023-11-15 11:01 | External Medical Summary | Summary of Care ---
Author Name Unknown Organization [facility] Address [address] [facility] [place] [address] Phone [phone] Care Team Providers Care High Court Justice Name Role Phone Rahat Mittal MD Primary Care Provider [phone] [phone] Reason for Visit * Reason Comments Dosage Adjustment In Person (Anticoag Cl inic) Diabetes Follow-Up Encounter Details Date Type Department Care Team (Late st Contact Info) Description 08/04/2023 8:00 AM EST Office Visit Pharmacy, [facility] [address] [facility] [place] [address] [facility] 132 [facility] [place] [address] Type 2 diabetes mellitus with hemoglobin A1c goal of less than 7.0% ([facility] Allergies No known active allergiesdocumented as of this encounter (statuses as of 08/04/2023) Medications Medication Sig Dispensed Refills Start Date [...] INJECTION SITES 6 mL 3 03/22/2023 Active Losartan Potassium 25 MG Oral Tablet (Cozaar)Indication s:Type 2 diabetes mellitus with hemoglobin A1c goal of less than 7.0% (HCC) take 1 tablet by mouth every morning 90 Tablet 0 05/08/2023 Active Pravastatin Sodium 10 MG Oral Tablet (Pravachol) take 1 tablet by mouth at bedtime 90 Tablet 0 05/08/2023 Active Jardiance 25 MG Oral Tablet (Empagliflozin) take 1 tablet by mouth once daily 90 Tablet 0 06/15/2023 Active Micromuscle 2 w/Device Kit Use to take blood sugar E11.9 1 Kit 0 08/04/2023 Active NextCode Health Ultra In Vitro Strip (Glucose Blood) Use to test blood sugar E11.9 100 Strip 5 08/04/2023 Active NextCode Health Delica Lancets 33G Use to the test blood sugar once daily E11.9 100 Each 5 08/04/2023 Active documented as of this encounter (statuses as of 08/04/2023) Active Problems Problem Noted Date Diagnosed Date HTN, goal below 130/80 11/15/2019 Type 2 diabetes mellitus wit h hemoglobin A1c goal of less than 7.0% 05/02/2019 Dyslipidemia 05/02/2019 Morbid obesity due to excess calories 04/26/2019 documented as of this encounter (statuses as of 08/04/2023) Resolved Problems Problem Noted Date Diagnosed Date Resolved Date Body mass index (BMI) of 40. 0 to 44.9 in adult 04/16/2020 07/31/2020 Overview: Per Obesity protocol documented as of this encounter (statuses as of 08/04/2023) Immunizations Name Administration Dates Next Due TDAP [...] as of this encounter Progress Notes * Gauri Francis, [facility] - 08/04/2023 7:51 AM EST Medication Therapy [facility] - Diabetes Management Progress Note Efe Valera, identified by name and date of , is a 48 year old male being seen for diabetes management/education. Patient presents for return diabetic visit. DIABETES: Current diabetic medications: Trulicity 1.5 mg once weekly Jardiance 25 mg 1 tab daily Medication Injection Site: Abdomen Lifestyle: Diet: unchanged Glucose Review/SMBG: Readings per patient memory/recall: Patient is currently testing 1 times a day Hypoglycemia: Does your blood sugar go below 70 mg/dL? No Hyperglycemia symptoms present: none Recent Labs Units 07/13/23 0731 01/21/23 0819 06/28/22 0918 HEMOGLOBIN A1C - [facility] % 7.4* 7.4* 7.4* Recent Labs Units 07/13/23 0731 07/31/22 1644 07/26/22 1015 ESTIMATED GLOMERULAR FILTRATION RATE - [facility] mL/min >90 >90 >90 CREATININE - [facility] mg/dL 0.9 0.8 1.0 HYPERTENSION: Patient on ACEi/ARB: yes BP Readings from Last 3 Encounters: 06/03/22 124/68 05/08/22 138/80 08/23/20 140/80 Blood pressure at goal: yes HYPERLIPIDEMIA: Patient is taking moderate or high intensity statin: yes HEALTH MAINTENANCE REVIEW: Health Maintenance Due Topic Date Due Pneumococcal Vaccine: Pediatrics (0 to 5 Years) and At-Risk Patients (6 to 64 Years) (1 of 2 - PCV)Never done Hepatitis B (1 of 3 - 19+ 3-dose series) Never done Depression Screening 07/31/2021 Diabetic Foot Exam 08/23/2021 Colorectal Cancer Screening Never done Diabetic Eye Exam 11/27/2022 Influenza Vaccine (FLU shot) (1) Never done COVID-19 Vaccine ( - season) Never done Albumin/Creatinine Ratio 06/28/2023 ASSESSMENT & PLAN: BG Readings - Blood sugars controlled. A1c continues to trend in controlled range. Medications - Reviewed current regimen, patient is adherent to regimen. Will continue at this time. Diet, Exercise, Lifestyle - No significant lifestyle changes since last visit. Discussed with patient. Patient is agreeable to SMBG 1 time(s) daily. Patient aware to contact clinic if any hypoglycemia before next visit. MEDICATION CHANGES: no change Diabetic Medications: Trulicity 1.5 mg once weekly Jardiance 25 mg 1 tab daily HEALTH MAINTENANCE INTERVENTIONS: Labs: Up to Date Immunizations: Up to Date Foot Exam: Up to Date Eye Exam: Up to Date Annual Wellness Visit: N/A FOLLOW UP: Return to clinic in 16 weeks 12/01/2023 Gauri Francis RP Clinical Pharmacist - [place] Registered Nurse Rn Medication Therapy Management [facility] 08/04/2023, 7:51 AM documented in this encounter Plan of Treatment Upcoming Encounters Date Type Department Care Team (Late st Contact Info) Description 12/01/2023 8:00 AM EDT Office Visit Pharmacy, [facility] 132 [facility] [place] [address] [place] [address] [address] [place] [address] Health Maintenance Due Date Last Done Comments [...] history exists COVID-19 Vaccine ( season) 2023 Influenza Vaccine (FLU shot) (#1) 2023 Albumin/Creatinine Ratio 06/28/2023 023, 04/18/2022, 03/20/2021 HbA1c 01/11/2024 07/13/2023, 01/06, 06/28/2022, Additional history exists B-12 01/22/2024 01/21/2023, 11/08, 08/23/2020 GFR 07/13/2024 07/13/2023, 07/10, 07/26/2022, Additional history exists Lipid Panel 06/28/2027 06/28/2022, 080 01/2022, 12/05/2021, Additional history exists DTaP,Tdap,and Td [...] goal of less than 7.0% (HCC)- Primary documented in this encounter Care Teams High Court Justice Relationship Specialty Start Date End Date Rahat Mittal MD [address] [place] [address] PCP - General Family Medicine 03/19/20 documented as of this encounter
--- OUTSIDE RECORDS SUMMARY | 2023-11-15 11:01 | External Medical Summary | Summary of Care ---
Author Name Unknown Organization [facility] Address [address] [place] [address] Phone [phone] Care Team Providers Care Packer Inspector Name Role Phone Irina Rose MD Primary Care Provider [phone] Reason for Visit * Reason Onset Date Comments eRx-Medication Refill Fax 09/13/2023 Encounter Details Date Type Department Care Team (Late st Contact Info) Description 09/13/2023 Telephone Family Practice [facility] [address] [place] [address] Irina Rose MD [address] [place] [address] eRx-Medication Refill; Fax Allergies No known active [...] A1c goal of less than 7.0% ([facility]) inject 0.5 milliliters ( 1 AND 1/2 [...] encounter Miscellaneous Notes * Telephone Encounter - Adele Martel OSA - 09/21/2023 1:23 PM EDT Hallie has called in with [facility] states she needs most recent office notes & form to be filled out & signed by physician in regards to pt.'s order for diabetic shoes & faxed back to [phone] please advise. * Telephone Encounter - Dominique Goldstein PHARM Tech - 09/16/2023 3:01 PM EDT Patient calling to request appt with Dr. Rose. Transferred pt to scheduling for further assistance. Thank you, Dominique Goldstein, [facility] Table Saw Operator II [facility]PS)(Formerly Telepharmacy) 09/16/2023,3:01 PM * Telephone Encounter - Ovi Combs RP - 09/14/2023 4:34 PM EDT Signed Prescriptions: Disp Refills Jardiance 25 MG Oral Tablet (Empagliflozin)90 Tab*1 Sig: take 1tablet by mouth once dailyAuthorizing Provider: IRINA ROSE User: OVI COMBS * Telephone Encounter - Curry-Jelena Gonsalez LPN - 09/14/2023 10:13 AM EDT Re[facility] requesting office notes and forms to be completed for therapeutic shoes. Pt has not been in office since 05/08/2022. Pt will need appt for this to be completed Called pt, let message for a return call documented in this encounter Plan of Treatment Upcoming Encounters Date Type Department Care Team (Late st Contact Info) Description 12/01/2023 8:00 AM EDT Office Visit Pharmacy, [facility] [address] [facility] [place] [address] [facility] [address] [facility] [place] [address] Scheduled Orders Name Type Priority Associated Diagnoses [...] hyperlipidemia documented in this encounter Care Teams Packer Inspector Relationship Specialty Start Date End Date Irina Rose MD [address] [place] [id number] PCP - General Family Medicine 03/19/20 documented as of this encounter
--- OUTSIDE RECORDS SUMMARY | 2023-11-15 11:01 | External Medical Summary | Summary of Care ---
Author Name Unknown Organization [facility] Address [address] [facility] [address] Phone [phone] Care Team Providers Care Adapted Physical Education Specialist Name Role Phone Irina Rose MD Primary Care Provider [phone] Reason for Visit * Reason Comments eRx-Medication Refill Encounter Details Date Type Department Care Team (Late st Contact Info) Description 09/13/2023 Refill Family Practice [facility] [address] [facility] [place] [address] Irina Rose MD [address] [place] [address] Dyslipidemia* Allergies No known active allergiesdocumented as of this encounter (statuses as of 09/16/2023) Medications Medication Sig Dispensed Refills Start Date End Date Status Diclofenac Sodium 1 % External Gel (Voltaren) apply 2 grams to affected area twice a day NEEDED FOR PAIN 100 g 1 2 Active Trulicity 1.5 MG/0.5ML Subcutaneous Solution Pen-injector (Dulaglutide)Jaja cations:Type 2 diabetes mellitus with hemoglobin A1c goal of less than 7.0% ([facility]) inject 0.5 milliliters ( 1 AND 1/2 milligrams ) subcutaneously every week IN THE ABDOMEN THIGHS OR OUTER AREA OF UPPER ARM ROTATE INJECTION SITES 6 mL 3 3 Active FabZatuch Ultra 2 w/Device Kit Use to take blood sugar E11.9 1 Kit 0 4 Active PalkionTouch Ultra In Vitro Strip (Glucose Blood) Use [...] as of this encounter (statuses as of 09/16/2023) Active Problems Problem Noted Date Diagnosed Date HTN, goal below 130/80 11/15/2019 Type 2 diabetes mellitus wit h hemoglobin A1c goal of less than 7.0% 05/02/2019 Dyslipidemia 05/02/2019 Morbid obesity due to excess calories 04/26/2019 documented as of this encounter (statuses as of 09/16/2023) Resolved Problems Problem Noted Date Diagnosed Date Resolved Date Body mass index (BMI) of 40. 0 to 44.9 in adult 04/16/2020 07/31/2020 Overview: Per Obesity protocol documented as of this encounter (statuses as of 09/16/2023) Immunizations Name Administration Dates Next Due TDAP [...] encounter Miscellaneous Notes * Telephone Encounter - Dominique Goldstein PHARM Tech - 09/16/2023 3:01 PM EDT Patient calling to request appt with Dr. Rose. Transferred pt to scheduling for further assistance. Thank you, Dominique Goldstein, [facility] Machinist II [facility] Pharmacy Services([facility]PS)(Formerly Telepharmacy) 09/16/2023,3:01 PM * Telephone Encounter - Ovi Combs [facility] - 09/14/2023 4:34 PM EDT Signed Prescriptions: Disp Refills Jardiance 25 MG Oral Tablet (Empagliflozin)90 Tab*1 Sig: take 1 tablet by mouth once dailyAuthorizing Provider: IRINA ROSE User: OVI COMBS * Telephone Encounter - Jelena Simeon LPN - 09/14/2023 10:13 AM EDT Received fax from [facility] requesting office notes and forms to be completed for therapeutic shoes. Pt has not been in office since 05/08/2022. Pt will need appt for this to be completed Called pt, let message for a return call documented in this encounter Plan of Treatment Upcoming Encounters Date Type Department Care Team (Late st Contact Info) Description 12/01/2023 8:00 AM EDT Office Visit Pharmacy, [facility] [address] [place] [address] [place] [facility] [address] [place] [address] Scheduled Orders Name Type Priority Associated Diagnoses [...] hyperlipidemia documented in this encounter Care Teams Adapted Physical Education Specialist Relationship Specialty Start Date End Date Irina Rose MD [address] [place] [address] PCP - General Family Medicine 03/19/20 documented as of this encounter
--- NOTE | 2023-11-15 11:02 | Emergency Department Note ---
Impression & Plan DKA (diabetic ketoacidosis), Diabetic ulcer of right foot, High anion gap metabolic acidosis, Cellulitis in diabetic foot ED Provider Note NAME: CHIKA FATIMA AGE: 48 SEX: M : 1975 ARRIVES VIA: Walk-In INFORMANT: Patient, triage note ED PROVIDER(S): Joao Morillo MD CHIEF COMPLAINT: Feeling unwell, GI upset, foot swelling MEDICAL DECISION MAKING: Patient presents due to concern for feeling generally unwell. Patient also has some right foot swelling and pain. IV was established and blood work was obtained along with a bio fire chest x-ray EKG troponin right foot x-ray and DVT ultrasound. Patient was ordered IV fluids Toradol and Tylenol. Patient's blood work showed a white count of 11 with normal H&H and platelet count. The patient's kidney function is normal but the patient does have an anion gap with a lower bicarb and low chloride. The patient is hyponatremic at 128. Sugar 251. Procalcitonin is 1.2. The patient was ordered cultures broad- spectrum antibiotics including IV vancomycin and Zosyn. Patient's foot x-ray does not show obvious fracture dislocation DVT ultrasound is negative. BioFire negative. VBG with pH is 7.3 pCO2 is slightly low at 37. I did inform the findings to the patient the patient's significant other bedside I did speak with the inpatient medicine service Dr. Do and the patient was admitted to the medicine service. Patient was ordered an insulin drip inpatient team. Critical Care: I have personally spent 35 minutes of critical care time in direct management of this patient. This includes bedside care, interpretation of diagnostic studies, and testing, discussion with consultants, patient, and family members, and other require inpatient management activities. This 35 minutes is in excess of all separately billable procedures. Discussion w/ other healthcare providers: Dr. Do inpatient medicine service Dr. Mayers radiology Prior /Outside records reviewed: None Differential diagnosis: Infection, dehydration, metabolic abnormality, hypo/hyperglycemia, electrolyte imbalance, anemia, UTI, pneumonia, thyroid dysfunction among others were considered. Diagnostics, as interpreted by me: ECG: Sinus tachycardia, rate of 106, normal MT and QRS, normal axis, prolonged QTc no ST elevations. Cardiac monitoring: An order was placed for continuous cardiac monitoring. The monitor shows a rate of 112 with tachycardic and regular rhythm. Patient was placed on pulse oximetry Medical decision rules: None Imaging studies: I informally interpreted the patient's foot x-ray does not show obvious fracture dislocation with formal report to follow. HPI: Patient presents due to concern for flulike symptoms and upset stomach as well as swelling and pain to the right foot. The patient does have a known history of Charcot states that he typically does have right greater than left lower extremity swelling and does wear a foot brace which has not worn the last several days but does note some worsening discomfort and swelling. The patient does have neuropathy and cannot feel the bottom of his foot. The patient was seen by podiatry on Thursday and was told that his wound was improving this is chronic in nature used to be much larger. Patient is diabetic and does take Trulicity and Jardiance. Patient denies any chest pains or cough but has had some shortness of breath just in the last week. He did have associated nausea vomiting diarrhea Thursday and several further days. Patient states that this is since resolved. Patient denies any prior history of heart or lung disease is a non-smoker. No history of DVT or PE the patient denies any recent surgeries hospitalizations or travel. Patient denies any known sick contacts no antibiotic use and no recent falls. PAST MEDICAL HISTORY: See Below PAST SURGICAL HISTORY: See Below SOCIAL HISTORY: See Below HOME MEDICATIONS: See Below ALLERGIES: See Below VITALS: See Below PHYSICAL EXAMINATION: GENERAL: NAD, non-toxic. EYE EXAM: Normal conjunctiva. PERRL, no anisocoria and EOM's grossly intact w/o pain. OROPHARYNX: Moist mucus membranes, grossly normal dentition. NECK: Trachea midline, no stridor. Supple, no nuchal rigidity, no adenopathy, non-tender. No signs of meningismus. FROM of the neck with good chin to chest and neck extension. LUNGS: Clear to auscultation. Normal chest wall mechanics. HEART: Tachycardic and regular, no MRG. ABDOMEN: Abdomen soft, non-tender, no masses, no rebound or guarding. BACK: No CVA TTP. SKIN: No rashes and no bruising. UPPER EXTREMITIES: Upper extremities are grossly normal. LOWER EXTREMITIES: Right greater than left lower extremity edema with redness and swelling noted to the right foot, pinpoint open area over the plantar surface with associated callus adjacent but without any fluctuance or drainage, erythema adjacent. No crepitus. NEURO EXAM: A&O x3, cranial nerves II-XII grossly intact, normal speech, moves all 4 extremities. Past Med/Surg History Problem List (Updated 11/15/23 @ 18:56 by Joao Morillo MD) Cellulitis in diabetic foot (Acute) High anion gap metabolic acidosis (Acute) Diabetic ulcer of right foot (Acute) DKA (diabetic ketoacidosis) (Acute) Medical History Charcot's arthropathy Diabetic peripheral neuropathy HLD (hyperlipidemia) HTN (hypertension) T2DM (type 2 diabetes mellitus) Obesity, morbid, BMI 40.0-49.9 Surgical History Hx of foot surgery multiple surgeries on R foot regarding ulcer Family History Father No problems noted. Mother Liver cancer Social History Smoking Status: Never smoker Preferred Language: Hebrew Feels Safe at Home: Yes Allergies Allergies Allergy/AdvReac Type Severity Reaction Status Date / Time PRESERVATIVES Allergy Unknown eyes Uncoded 04/10/14 11:40 swell, tightness of throat Home Meds Home Medications Medication Instructions Recorded Confirmed dulaglutide 1.5 mg/0.5 mL 1.5 mg subcut Q7D 11/15/23 11/15/23 subcutaneous pen injector (Trulicity) empagliflozin 25 mg tablet 25 mg PO DAILY 11/15/23 11/15/23 (Jardiance) losartan 25 mg tablet 25 mg PO DAILY 11/15/23 11/15/23 pravastatin 10 mg tablet 10 mg PO HS 11/15/23 11/15/23 Results & Data (ED) Vital Signs Vital Signs - 24 hr 11/15/23 10:55 11/15/23 11:20 11/15/23 11:20 Temperature 36.6 C Temperature Source Temporal Artery Scan Pulse Rate 115 H 107 H Pulse Rate [Apical] 106 H Respiratory Rate 18 20 Respiratory Effort / Characteristics Non-Labored Spontaneous Respiratory Depth Normal Respiratory Pattern Regular Blood Pressure 144/75 H Blood Pressure [Left Arm] 145/85 H Blood Pressure Mean 98 Blood Pressure Mean [Left Arm] 105 Blood Pressure Position [Left Arm] Lying Pulse Oximetry 97 96 95 Oxygen Delivery Method Room Air Room Air Room Air Sepsis Recent Fever Within 48 Hours No Sepsis New/Unexplained Change in Mental Status N/A Sepsis Action Taken by Nursing No Action Required 11/15/23 11:57 11/15/23 12:30 Temperature Temperature Source Pulse Rate 104 H Pulse Rate [Apical] 94 H Respiratory Rate 18 Respiratory Effort / Characteristics Non-Labored Spontaneous Respiratory Depth Normal Respiratory Pattern Regular Blood Pressure Blood Pressure [Left Arm] 145/85 H Blood Pressure Mean Blood Pressure Mean [Left Arm] 105 Blood Pressure Position [Left Arm] Lying Pulse Oximetry 96 Oxygen Delivery Method Room Air Sepsis Recent Fever Within 48 Hours Sepsis New/Unexplained Change in Mental Status Sepsis Action Taken by Assisted Medications Current Medication List: was personally reviewed by me Laboratory Data Attestation: I reviewed the patient's lab results. 11/15/23 11:12 11/15/23 15:52 Lab Results 11/15/23 11/15/23 11/15/23 Range/Units 11:12 11:14 12:52 WBC 11.52 H (4.8-10.8) K/ul RBC 5.88 (4.70-6.10) M/uL Hgb 15.6 (14.0-18.0) g/dl Hct 47.2 (42.0-52.0) % MCV 80.3 (80.0-100.0) fL MCH 26.5 (25.0-34.0) pg MCHC 33.1 (32.0-36.0) g/dL RDW Std Deviation 42.8 (36.4-46.3) fL RDW Coeff of Princess 14.6 H (11.5-14.5) % Plt Count 218 (130-400) K/uL MPV 9.8 (9.4-12.4) fL Immature Gran % (Auto) 0.6 % Neut % (Auto) 78.2 % Lymph % (Auto) 8.0 % Brewster % (Auto) 12.9 % Eos % (Auto) 0.0 % Baso % (Auto) 0.3 % Neut # (Auto) 9.01 H (1.40-6.50) K/uL Lymph # (Auto) 0.92 L (1.20-3.40) K/uL Brewster # (Auto) 1.49 H (0.11-0.59) K/uL Eos # (Auto) 0.00 (0.00-0.50) K/uL Baso # (Auto) 0.03 (0.00-0.20) K/uL Immature Gran # (Auto) 0.07 (0.01-0.20) K/uL ESR 98 H (0-15) mm/hr Sodium 128 L (136-145) mmol/L Potassium 4.2 (3.5-5.1) mmol/L Chloride 92 L (98-107) mmol/L Carbon Dioxide 18 L (21-32) mmol/L Anion Gap 18 H (3-11) BUN 22 (6-23) mg/dl Creatinine 1.03 (0.6-1.4) mg/dl Est Cr Clr Drug Dosing 116.4 ml/min Est GFR ( Amer) 100.5 ml/min Est GFR (Non-Af Amer) 86.7 ml/min BUN/Creatinine Ratio 21.4 H (10-20) Glucose 251 H (70-99(Fasting)) mg/dl Calcium 9.0 (8.6-10.3) mg/dl Magnesium 2.4 (1.7-2.4) mg/dl Total Bilirubin 0.7 (0.2-1.0) mg/dl AST 25 (13-39) U/L ALT 34 (7-52) U/L Alkaline Phosphatase 63 (34-104) U/L Total Creatine Kinase 76 (30-223) U/L Troponin I High Sens 8.7 (0-20) pg/ml C-Reactive Protein 24.84 H (0-0.5) mg/dl Total Protein 7.7 (6.0-8.3) gm/dl Albumin 3.5 (3.4-5.0) gm/dl Globulin 4.2 H (2.5-4.0) gm/dl Albumin/Globulin Ratio 0.8 L (0.9-2) Procalcitonin 1.22 H (0-0.5) ng/ml TSH 1.747 (0.300-4.500) uIu/ml Urine Color Yellow Urine Appearance Cloudy A (Clear) Urine pH 5.5 (4.5-7.5) Ur Specific Pindall 1.038 H (1.000-1.030) Urine Protein Negative (Negative) Urine Glucose (UA) 3+ H (Negative) Urine Ketones 3+ H (Negative) Urine Blood Trace H (Negative) Urine Nitrite Negative (Negative) Urine Bilirubin Negative (Negative) Urine Urobilinogen Negative (Negative) Ur Leukocyte Esterase Negative (Negative) Urine WBC (Auto) 0-5 (0-5) /hpf Urine RBC (Auto) 0-2 (0-2) /hpf U Hyaline Cast (Auto) 0-2 (0-2) /lpf U Epithel Cells (Auto) 0-2 (0-2) /hpf Urine Bacteria (Auto) None Seen (None Seen) Adenovirus (PCR) Not Detected (NotDetected) B. pertussis DNA (PCR) Not Detected (NotDetected) B.parapertussis DNA PCR Not Detected (NotDetected) C. pneumoniae DNA (PCR) Not Detected (NotDetected) Coronavirus OC43 (PCR) Not Detected (NotDetected) Coronavirus HKU1 (PCR) Not Detected (NotDetected) Coronavirus 229E (PCR) Not Detected (NotDetected) SARS-CoV-2 (PCR) Not Detected (NotDetected) Coronavirus NL63 (PCR) Not Detected (NotDetected) Human Metapneumovir PCR Not Detected (NotDetected) Influenza Type A (PCR) Not Detected (NotDetected) Influenza Type B (PCR) Not Detected (NotDetected) M. pneumoniae (PCR) Not Detected (NotDetected) Parainfluenza 1 (PCR) Not Detected (NotDetected) Parainfluenza 2 (PCR) Not Detected (NotDetected) Parainfluenza 3 (PCR) Not Detected (NotDetected) Parainfluenza 4 (PCR) Not Detected (NotDetected) RSV (PCR) Not Detected (NotDetected) Entero/Rhino (PCR) Not Detected (NotDetected) Administered Medications Insulin Aspart (Insulin Aspart Per Unit Charge) 0 units SC ACHS FINN Stop: 12/15/23 17:29 Last Admin: 11/15/23 18:25 Dose: Not Given Documented By: LCD Discontinued Medications Acetaminophen (Acetaminophen 500 Mg Tab) 1,000 mg PO NOW STA Stop: 11/15/23 11:20 Last Admin: 11/15/23 11:41 Dose: 1,000 mg Documented By: COREEN Sodium Chloride (Nss) 1,000 mls @ 999 mls/hr IV .Q1H1M FINN Stop: 11/15/23 12:30 Last Infusion: 11/15/23 12:54 Dose: Infused Documented By: Admin: 11/15/23 11:42 Dose: 999 mls/hr Documented By: COREEN Sodium Chloride (Nss) 1,000 mls @ 999 mls/hr IV .Q1H1M ONE Stop: 11/15/23 13:55 Last Infusion: 11/15/23 16:07 Dose: Infused Documented By: Admin: 11/15/23 14:03 Dose: 999 mls/hr Documented By: HUI Vancomycin HCl 2,750 mg/ (Sodium Chloride) 555 mls @ 200 mls/hr IV NOW ONE Stop: 11/15/23 15:41 Last Infusion: 11/15/23 17:43 Dose: Infused Documented By: Admin: 11/15/23 14:35 Dose: 200 mls/hr Documented By: COREEN Piperacillin Sod/Tazobactam Sod (Zosyn) 4.5 gm in 100 mls @ 200 mls/hr IV NOW ONE Stop: 11/15/23 13:25 Last Infusion: 11/15/23 15:24 Dose: Infused Documented By: Admin: 11/15/23 14:02 Dose: 200 mls/hr Documented By: HUI Potassium Chloride/Dextrose/Sod Cl (D5w And 1/2nss + 20meq Kcl) 20 meq in 1,000 mls @ 150 mls/hr IV .Q6H40M [facility] Stop: 12/15/23 14:29 Last Admin: 11/15/23 17:43 Dose: Not Given Documented By: LORETO Ketorolac Tromethamine (Ketorolac Tromethamine 15 Mg/Ml Vial) 10 mg IV NOW ONE Stop: 11/15/23 11:20 Last Admin: 11/15/23 11:42 Dose: 10 mg Documented By: COREEN Miscellaneous (Dka Goal Range 150-250 Mg/Dl) 1 each N/A ONE ONE Stop: 11/15/23 14:22 Last Admin: 11/15/23 18:21 Dose: Not Given Documented By: LCD Imaging Data Radiologist's Impression: Chest X-Ray 11/15/23 11:19 SINGLE VIEW CHEST CLINICAL HISTORY: Generalized weakness FINDINGS: An AP, portable, upright chest radiograph is obtained. No prior studies are available for comparison at the time of dictation. The cardiomediastinal silhouette is unremarkable. The lungs and pleural spaces are clear. No pneumothorax is seen. The bony thorax is grossly intact. IMPRESSION: No active disease in the chest. ACT 112: Negative or not required by law. Electronically signed by: Jacques Mayers M.D. 11/15/2023 11:48 AM Foot X-Ray 11/15/23 11:19 RIGHT FOOT 3 VIEWS CLINICAL HISTORY: Right foot pain and swelling. FINDINGS: 3 views of the right foot are obtained. No prior studies are available for comparison at the time of dictation. The skeletal structures are osteopenic. No acute fracture is seen. There is pes planus with rocker bottom deformity. Severe arthritic change is observed with erosions, bony fragmentation, and midfoot collapse. The appearance favors a Charcot/neuropathic joint. Arthritic change is also seen throughout the forefoot, greatest at the first metatarsophalangeal joint. Degenerative change is also seen at the tibiotalar articulation. There are large dorsal and plantar heel spurs. Diffuse soft tissue edema is seen throughout the foot. IMPRESSION: 1. Soft tissue edema with no acute bony abnormality clearly identified. 2. Osteopenia and severe degenerative change as above. Findings favor a Charcot/neuropathic foot. Correlate with clinical findings and any prior outside imaging studies. Electronically signed by: Jacques Mayers M.D. 11/15/2023 11:47 AM Venous Doppler Study 11/15/23 11:19 ULTRASOUND RIGHT LOWER EXTREMITY VENOUS CLINICAL HISTORY: Right leg swelling. COMPARISON STUDY: No priors. TECHNIQUE: Real-time, grayscale, and color Doppler sonography of the deep veins of the right lower extremity was performed from the inguinal crease to the calf. Compression and augmentation were utilized. FINDINGS: There is no sonographic evidence of deep venous thrombosis identified in the right lower extremity. The common femoral, superficial femoral, and popliteal veins are patent and normally compressible. The greater saphenous vein and the profunda femoris vein at the junction with the common femoral vein are clear. The visualized calf veins are patent. IMPRESSION: There is no sonographic evidence of deep venous thrombosis identified in the right lower extremity. ACT 112: Negative or not required by law. Electronically signed by: Jacques Mayers M.D. 11/15/2023 1:44 PM Discharge Plan Visit Data Chief Complaint: Illness Stated Complaint: FOOT SWELLING AND FLU SYMPTOMS ED Provider: Joao Morillo Discharge Problem: DKA (diabetic ketoacidosis), Diabetic ulcer of right foot, High anion gap metabolic acidosis, Cellulitis in diabetic foot Patient Disposition: Admitted As Inpatient Discharge Instructions Interventions: ED Discharge Assessment Last Done: 11/15/23 17:09 Discharge Problem: DKA (diabetic ketoacidosis) Qualifiers: Diabetes mellitus complication detail: without coma Diabetic ulcer of right foot Qualifiers: Diabetic foot ulcer location: midfoot Diabetes mellitus type: type 2 Non- pressure ulcer stage: limited to breakdown of skin Qualified Code(s): E11.621 - Type 2 diabetes mellitus with foot ulcer; L97.411 - Non-pressure chronic ulcer of right heel and midfoot limited to breakdown of skin
[2023-11-15 11:40] LABS: Basophils # (auto) 0.03 K/uL (0.00-0.20); Basophils % (auto) 0.3 %; Hematocrit (blood only) 47.2 % (42.0-52.0); Hemoglobin 15.6 g/dl (14.0-18.0); Immature Granulocytes # (auto) 0.07 K/uL (0.01-0.20); Immature Granulocytes % (auto) 0.6 %; Lymphocytes # (auto) 0.92 K/uL (1.20-3.40); Mean Corpuscular Hemoglobin 26.5 pg (25.0-34.0); Mean Corpuscular Hgb Conc 33.1 g/dL (32.0-36.0); Mean Corpuscular Volume 80.3 fL (80.0-100.0); Mean Platelet Volume 9.8 fL (9.4-12.4); Monocytes # (auto) 1.49 K/uL (0.11-0.59); Monocytes % (auto) 12.9 %; Neutrophils # (auto) 9.01 K/uL (1.40-6.50); Neutrophils % (auto) 78.2 %; Platelet Count 218 K/uL (130-400); RDW Coefficient of Variation 14.6 % (11.5-14.5); RDW Standard Deviation 42.8 fL (36.4-46.3); Red Blood Count 5.88 M/uL (4.70-6.10); White Blood Count 11.52 K/ul (4.8-10.8)
[2023-11-15] MEDS: ACETAMINOPHEN 500 MG TAB PO STA (11:41)
[2023-11-15] MEDS: SODIUM CHLORIDE 0.9% 1,000 ML IV SCH (11:42)
[2023-11-15] MEDS: KETOROLAC TROMETHAMINE 15 MG/ML VIAL IV ONE (11:42)
--- NOTE | 2023-11-15 11:49 | XRay Report ---
SINGLE VIEW CHEST CLINICAL HISTORY: Generalized weakness FINDINGS: An AP, portable, upright chest radiograph is obtained. No prior studies are available for c omparison at the time of dictation. The cardiomediastinal silhouette is unremarkable. The lungs and p leural spaces are clear. No pneumothorax is seen. The bony thorax is grossly intact. IMPRESSION: No active disease in the chest. ACT 112: Negative or not required by law. Electronically signed by: Jacques Mayers M.D. 11/15/2023 11:48 AM
--- NOTE | 2023-11-15 11:49 | XRay Report ---
RIGHT FOOT 3 VIEWS CLINICAL HISTORY: Right foot pain and swelling. FINDINGS: 3 views of the right foot are obtained. No prior studies are available for comparison at th e time of dictation. The skeletal structures are osteopenic. No acute fracture is seen. There is pes planus with rocker bottom deformity. Severe arthritic change is observed with erosions, bony fragment ation, and midfoot collapse. The appearance favors a Charcot/neuropathic joint. Arthritic change is a lso seen throughout the forefoot, greatest at the first metatarsophalangeal joint. Degenerative menard e is also seen at the tibiotalar articulation. There are large dorsal and plantar heel spurs. Diffuse soft tissue edema is seen throughout the foot. IMPRESSION: 1. Soft tissue edema with no acute bony abnormality clearly identified. 2. Osteopenia and severe degenerative change as above. Findings favor a Charcot/neuropathic foot. Cor relate with clinical findings and any prior outside imaging studies. Electronically signed by: Jacques Mayers M.D. 11/15/2023 11:47 AM
[2023-11-15 11:58] LABS: Albumin Globulin Ratio 0.8 (0.9-2); Albumin Level 3.5 gm/dl (3.4-5.0); BUN Creatinine Ratio 21.4 (10-20); Bilirubin,Total 0.7 mg/dl (0.2-1.0); Creatinine Clr Calc Pharmacy 116.4 ml/min; Est GFR (African American) 100.5 ml/min; Est GFR (Non-African American) 86.7 ml/min; Globulin 4.2 gm/dl (2.5-4.0); Magnesium 2.4 mg/dl (1.7-2.4); Potassium 4.2 mmol/L (3.5-5.1); Total Protein 7.7 gm/dl (6.0-8.3)
[2023-11-15 12:04] LABS: Troponin I High Sensitivity 8.7 pg/ml (0-20)
[2023-11-15 12:13] LABS: Thyroid Stimulating Hormone 1.747 uIu/ml (0.300-4.500)
[2023-11-15 12:31] LABS: Adenovirus PCR Not Detected (NotDetected); Bordetella parapertussis PCR Not Detected (NotDetected); Bordetella pertussis PCR Not Detected (NotDetected); Chlamydia pneumoniae PCR Not Detected (NotDetected); Coronavirus 229E PCR Not Detected (NotDetected); Coronavirus CoV-2 (COVID19)PCR Not Detected (NotDetected); Coronavirus HKU1 PCR Not Detected (NotDetected); Coronavirus NL63 PCR Not Detected (NotDetected); Coronavirus OC43PCR Not Detected (NotDetected); Human Metapneumovirus PCR Not Detected (NotDetected); Influenza A PCR Not Detected (NotDetected); Influenza B PCR Not Detected (NotDetected); Mycoplasma pneumoniae PCR Not Detected (NotDetected); Parainfluenza Virus 1 PCR Not Detected (NotDetected); Parainfluenza Virus 2 PCR Not Detected (NotDetected); Parainfluenza Virus 3 PCR Not Detected (NotDetected); Parainfluenza Virus 4 PCR Not Detected (NotDetected); Respiratory Syncytial VirusPCR Not Detected (NotDetected); Rhinovirus/Enterovirus PCR Not Detected (NotDetected)
[2023-11-15] MEDS ORDERED: VANCOMYCIN CONSULT ACTIVE PRN (12:55)
[2023-11-15 13:01] LABS: Appearance Urine Cloudy (Clear); Bacteria Urine Automated None Seen (None Seen); Bilirubin Urine Negative (Negative); Blood Urine Trace (Negative); Cast Urine Automated 0-2 /lpf (0-2); Color Urine Yellow; Epithelial Cell Urine Auto 0-2 /hpf (0-2); Glucose Urine UA 3+ (Negative); Ketones Urine 3+ (Negative); Leukocyte Esterase Urine Negative (Negative); Nitrite Urine Negative (Negative); Protein Urine Negative (Negative); RBC Urine Automated 0-2 /hpf (0-2); Specific Gravity Urine 1.038 (1.000-1.030); Urobilinogen Urine Negative (Negative); WBC Urine Automated 0-5 /hpf (0-5); pH Urine 5.5 (4.5-7.5)
--- NOTE | 2023-11-15 13:45 | Ultrasound Report ---
ULTRASOUND RIGHT LOWER EXTREMITY VENOUS CLINICAL HISTORY: Right leg swelling. COMPARISON STUDY: No priors. TECHNIQUE: Real-time, grayscale, and color Doppler sonography of the deep veins of the right lower ex tremity was performed from the inguinal crease to the calf. Compression and augmentation were utilize d. FINDINGS: There is no sonographic evidence of deep venous thrombosis identified in the right lower ex tremity. The common femoral, superficial femoral, and popliteal veins are patent and normally carlene sible. The greater saphenous vein and the profunda femoris vein at the junction with the common femor al vein are clear. The visualized calf veins are patent. IMPRESSION: There is no sonographic evidence of deep venous thrombosis identified in the right lower extremity. ACT 112: Negative or not required by law. Electronically signed by: Jacques Mayers M.D. 11/15/2023 1:44 PM
--- NOTE | 2023-11-15 13:59 | History & Physical Report ---
Date of Service November 15, 2023 Assessment & Plan (1) DKA (diabetic ketoacidosis): (2) Diabetic ulcer of right foot: (3) Charcot's arthropathy: (4) Diabetic peripheral neuropathy: (5) HTN (hypertension): (6) HLD (hyperlipidemia): (7) High anion gap metabolic acidosis: Plan This is a 48 yr old M who has a significant PMH of T2DM complicated for diabetic foot wound, R foot charcot arthopathy, diabetic neuropathy, HTN, HLD, hx of morbid obesity, who presents to ED 2/2 ill feeling and worsening swelling to R diabetic foot wound. Euglycemic DKA High anion gap metabolic acidosis admit to med tele pt with ketouria, elevated anion gap in setting of euglycemia-mild hyperglycemia, normal vbg he is very borderline on edge of DKA and will treat as such pt is on Jardiance, also with recent poor intake Place on Insulin gtt + D5W+ 1/2 NSS + 20meq KCL @ 150/hr serial q4h labs with bmp, vbg, phos once gap closes can transition to basal bolus regimen will keep him on clears for now hold home diabetic regimen on jardiance, adele last a1c 7.4 in July, will update in a.m. glycemic pharmacy consult - discussed with September, appreciate their assistance Unhealed surgical wound of right diabetic foot ulcer Diabetic Charcot arthropathy Diabetic peripheral neuropathy follows [facility] has been dealing with wound for last 4 years has been receiving laser therapy to wound, last treatment was 1 week ago over last week noted increased red/swellling, but no drainage consult podiatry discussed with radiology who felt MRI would be of no benefit to patient given charcot foot and inability to truly delineate if osteomyelitis is present Vanco/Zosyn ordered blood culures pending he does not meet sepsis criteria NWB to R foot CRP 24.84 Hyponatremia, corrected at 130 likely in setting of pending DKA and poor intake continue IVF, will follow BMP HTN chronic, stable continue losartan HLD chronic, stable continue statin DVT ppx: SQ lovenox Dispo: med tele FULL CODE PCP: Daxa Pt was seen and examined in collaboration with DR. Do, please see addendum A total of 70 minutes was spent coordinating, documenting, and providing care for this patient excluding time spent in the performance of separately billed services. This included personally viewing all current laboratories and imaging studies, medication reconciliation, outpatient chart review, and discussion with specialists. History of Present Illness Chief Complaint: Wound x 4 years. Primary Care Provider: Rahat Mittal MD This is a 48 yr old M who has a significant PMH of T2DM complicated for diabetic foot wound, R foot charcot arthopathy, diabetic neuropathy, HTN, HLD, hx of morbid obesity, who presents to ED 2/2 ill feeling and worsening swelling to R diabetic foot wound. is at bedside also helps elicit history. He has been dealing with this wound for 4 years now. He follows with podiatry, Dr. Mace and was last seen 1 week ago. He has had numerous surgeries on R foot in past. He has been getting laser therapy and things seemed stable. The evening after his appt he was walking around quite a bit at a baseball field. The day after his last appt with podiatry he woke up and was nauseated, vomiting and diarrhea. This lasted for 2 days, but he hasn't been able to, "shake the feeling." He denies fever. He feels off balance. He also feels his R foot wound is more swollen than previously. He denies any drainage of the wound. There has been no change in sensation as he has hx of neuropathy. "I feel like by feet are tied with ropes." He generally has had a poor appetite for the last week. He denies halie f/c/s, chest pain, sob, uri sx hematemesis, constipation,abd pain, dysuria, increased urg/freq with urination. He denies sick contacts. He has been still able to take his medications. He denies prior hx of DKA. I n ED he was hemodynamically stable. Lab work was notable for mild leukocytosis at 11.52k, corrected sodium 130, anion gap 18, bicarb 18, glucose 251, UA with ketones, glucose and trace blood. His venous doppler was negative for DVT. R foot xray reveals significant soft tissue edema along with charcot arthropathy changes. He received IVF and was started on IV vancomycin and zosyn. Allergies Allergy/AdvReac Type Severity Reaction Status Date / Time PRESERVATIVES Allergy Unknown eyes Uncoded 11/03/14 11:40 swell, tightness of throat Home Medications Medication Instructions Recorded Confirmed Type dulaglutide 1.5 mg/0.5 mL 1.5 mg subcut Q7D 11/15/23 11/15/23 History subcutaneous pen injector (Trulicity) empagliflozin 25 mg tablet 25 mg PO DAILY 11/15/23 11/15/23 History (Jardiance) losartan 25 mg tablet 25 mg PO DAILY 11/15/23 11/15/23 History pravastatin 10 mg tablet 10 mg PO HS 11/15/23 11/15/23 History Past Med/Surg History Problem List (Updated 11/15/23 @ 14:45 by Jojo Villarreal PA-C) High anion gap metabolic acidosis Diabetic ulcer of right foot DKA (diabetic ketoacidosis) Medical History (Updated 11/15/23 @ 14:45 by Jojo Villarreal PA-C) Charcot's arthropathy Diabetic peripheral neuropathy HLD (hyperlipidemia) HTN (hypertension) T2DM (type 2 diabetes mellitus) Obesity, morbid, BMI 40.0-49.9 Surgical History (Updated 11/15/23 @ 14:04 by Jojo Villarreal PA-C) Hx of foot surgery multiple surgeries on R foot regarding ulcer Family History (Updated 11/15/23 @ 13:43 by Jojo Villarreal PA-C) Father No problems noted. Mother Liver cancer Social History Smoking Status: Never smoker Preferred Language: [place] Feels Safe at Home: Yes Review of Systems Review of Systems: All systems reviewed & are unremarkable except as noted in HPI & below Physical Exam Physical Exam: please refer to DR. Do addendum for physical exam findings. Results & Data Results & Data Vital Signs (Past 12 Hours) Vital Signs Temp Pulse Pulse Resp BP BP Pulse Ox 11/15/23 12:30 94 H 18 145/85 H 96 11/15/23 11:57 104 H 11/15/23 11:20 107 H 95 11/15/23 11:20 106 H 20 145/85 H 96 11/15/23 10:55 36.6 C 115 H 18 144/75 H 97 O2 Del Method 11/15/23 12:30 Room Air 11/15/23 11:57 11/15/23 11:20 Room Air 11/15/23 11:20 Room Air 11/15/23 10:55 Room Air Diagnostic Findings Chest X-Ray 11/15/23 11:19 SINGLE VIEW CHEST CLINICAL HISTORY: Generalized weakness FINDINGS: An AP, portable, upright chest radiograph is obtained. No prior studies are available for comparison at the time of dictation. The cardiomediastinal silhouette is unremarkable. The lungs and pleural spaces are clear. No pneumothorax is seen. The bony thorax is grossly intact. IMPRESSION: No active disease in the chest. ACT 112: Negative or not required by law. Electronically signed by: Jacques Mayers M.D. 11/15/2023 11:48 AM Foot X-Ray 11/15/23 11:19 RIGHT FOOT 3 VIEWS CLINICAL HISTORY: Right foot pain and swelling. FINDINGS: 3 views of the right foot are obtained. No prior studies are available for comparison at the time of dictation. The skeletal structures are osteopenic. No acute fracture is seen. There is pes planus with rocker bottom deformity. Severe arthritic change is observed with erosions, bony fragmentation, and midfoot collapse. The appearance favors a Charcot/neuropathic joint. Arthritic change is also seen throughout the forefoot, greatest at the first metatarsophalangeal joint. Degenerative change is also seen at the tibiotalar articulation. There are large dorsal and plantar heel spurs. Diffuse soft tissue edema is seen throughout the foot. IMPRESSION: 1. Soft tissue edema with no acute bony abnormality clearly identified. 2. Osteopenia and severe degenerative change as above. Findings favor a Charcot/neuropathic foot. Correlate with clinical findings and any prior outside imaging studies. Electronically signed by: Jacques Mayers M.D. 11/15/2023 11:47 AM Venous Doppler Study 11/15/23 11:19 ULTRASOUND RIGHT LOWER EXTREMITY VENOUS CLINICAL HISTORY: Right leg swelling. COMPARISON STUDY: No priors. TECHNIQUE: Real-time, grayscale, and color Doppler sonography of the deep veins of the right lower extremity was performed from the inguinal crease to the calf. Compression and augmentation were utilized. FINDINGS: There is no sonographic evidence of deep venous thrombosis identified in the right lower extremity. The common femoral, superficial femoral, and popliteal veins are patent and normally compressible. The greater saphenous vein and the profunda femoris vein at the junction with the common femoral vein are clear. The visualized calf veins are patent. IMPRESSION: There is no sonographic evidence of deep venous thrombosis identified in the right lower extremity. ACT 112: Negative or not required by law. Electronically signed by: Jacques Mayers M.D. 11/15/2023 1:44 PM Medications Administered Medication List Discontinued Medications Acetaminophen (Acetaminophen 500 Mg Tab) 1,000 mg PO NOW STA Stop: 11/15/23 11:20 Last Admin: 11/15/23 11:41 Dose: 1,000 mg Documented By: TNK Sodium Chloride (Nss) 1,000 mls @ 999 mls/hr IV .Q1H1M FINN Stop: 11/15/23 12:30 Last Infusion: 11/15/23 12:54 Dose: Infused Documented By: Admin: 11/15/23 11:42 Dose: 999 mls/hr Documented By: TNK Ketorolac Tromethamine (Ketorolac Tromethamine 15 Mg/Ml Vial) 10 mg IV NOW ONE Stop: 11/15/23 11:20 Last Admin: 11/15/23 11:42 Dose: 10 mg Documented By: TNK ECG Additional Comments: I have independently reviewed and interpreted patient's admitting EKG which revealed: incomplete RBBB, No ST or t wave changes, QTC 499ms COVID-19 Results Results COVID-19 Adm Lab Results: RBC 5.88 M/uL (4.70-6.10) 11/15/23 WBC 11.52 K/ul (4.8-10.8) H 11/15/23 Hgb 15.6 g/dl (14.0-18.0) 11/15/23 Hct 47.2 % (42.0-52.0) 11/15/23 Plt Count 218 K/uL (130-400) 11/15/23 Neutrophils (%) (Auto) 78.2 % 11/15/23 Lymphocytes (%) (Auto) 8.0 % 11/15/23 Monocytes # (Auto) 1.49 K/uL (0.11-0.59) H 11/15/23 Eosinophils # (Auto) 0.00 K/uL (0.00-0.50) 11/15/23 Immature Granulocyte % (Auto) 0.6 % 11/15/23 Neutrophils # (Auto) 9.01 K/uL (1.40-6.50) H 11/15/23 Lymphocytes # (Auto) 0.92 K/uL (1.20-3.40) L 11/15/23 Monocytes # (Auto) 1.49 K/uL (0.11-0.59) H 11/15/23 Eosinophils # (Auto) 0.00 K/uL (0.00-0.50) 11/15/23 Basophils # (Auto) 0.03 K/uL (0.00-0.20) 11/15/23 Immature Granulocyte # (Auto) 0.07 K/uL (0.01-0.20) 4 Na 128 mmol/L (136-145) L 11/15/23 K 4.2 mmol/L (3.5-5.1) 11/15/23 Cl 92 mmol/L (98-107) L 11/15/23 CO2 18 mmol/L (21-32) L 11/15/23 Anion Gap 18 (3-11) H 11/15/23 BUN 22 mg/dl (6-23) 11/15/23 Creatinine 1.03 mg/dl (0.6-1.4) 11/15/23 BUN/Creatinine Ratio 21.4 (10-20) H 11/15/23 Glucose Level 251 mg/dl (70-99(Fasting)) H 11/15/23 Ca 9.0 mg/dl (8.6-10.3) 11/15/23 Total Bilirubin 0.7 mg/dl (0.2-1.0) 11/15/23 AST/SGOT 25 U/L (13-39) 11/15/23 ALT/SGPT 34 U/L (7-52) 11/15/23 Alkaline Phosphatase 63 U/L (34-104) 11/15/23 Total Protein 7.7 gm/dl (6.0-8.3) 11/15/23 Albumin 3.5 gm/dl (3.4-5.0) 11/15/23 Globulin 4.2 gm/dl (2.5-4.0) H 11/15/23 Albumin/Globulin Ratio 0.8 (0.9-2) L 11/15/23 CRP Pending 11/15/23 Procalcitonin Pending 11/15/23 Adenovirus (PCR) Not Detected (NotDetected) 11/15/23 B. parapertussis DNA (PCR) Not Detected (NotDetected) 03/01 B. pertussis DNA (PCR) Not Detected (NotDetected) 11/15/23 C. pneumoniae DNA (PCR) Not Detected (NotDetected) 4 Coronavirus Type OC43 (PCR) Not Detected (NotDetected) 03/01 Coronavirus Type HKU1 (PCR) Not Detected (NotDetected) 03/01 Coronavirus Type 229E (PCR) Not Detected (NotDetected) 03/01 COVID-19 PCR Not Detected (NotDetected) 11/15/23 Coronavirus Type NL63 (PCR) Not Detected (NotDetected) 03/01 Human Metapneumovirus (PCR) Not Detected (NotDetected) 03/01 Influenza Virus Type A (PCR) Not Detected (NotDetected) Influenza Virus Type B (PCR) Not Detected (NotDetected) M. pneumoniae (PCR) Not Detected (NotDetected) 11/15/23 Parainfluenza Type 1 (PCR) Not Detected (NotDetected) 03/01 Parainfluenza Type 2 (PCR) Not Detected (NotDetected) 03/01 Parainfluenza Type 3 (PCR) Not Detected (NotDetected) 03/01 Parainfluenza Type 4 (PCR) Not Detected (NotDetected) 03/01 RSV (PCR) Not Detected (NotDetected) 11/15/23 Enterovirus/Rhinovirus (PCR) Not Detected (NotDetected) Chest X-Ray 11/15/23 Code Status & VTE Plan Code Status FULL CODE VTE Prophylaxis Plan VTE Prophylaxis will be ordered: Yes Supervising Physician Co-Signing Physician Notes I have seen and discussed the case with the collaborating advanced practitioner. I agree with the above H&P. I have reviewed and confirmed the patients medical history, the findings on physical examination, and the patients diagnosis and treatment plan with Cherelle SALGADO and agree with the information documented. In short, patient is a 48 year old gentleman with history of DMTII and charot joints in ble who is admitted for worsening erythema of right foot. Patient states that he has experience multiple atraumatic fractures in his right foot, including open fracture in which bone punctured through the sole of his foot--ultimately requiring surgery given OM and unhealing wound. Since the procedure 03/2023, the surgical incision has yet to fully close. He follows podiatry who does laser treatments to aid in healing. Last Thursday, patient was ambulating more than usual and felt sore. However, Thursday through patient experienced nausea, vomiting, diarrhea, and worsening swelling of foot. Patient states that he has continued to feel poorly, mostly weak and unsettled. Notes resolution of diarrhea, but still "queasy" Right foot has remained more swollen that it usually is with notable erythema and warmth. Patient is on trulicity and jardiance. UA with Ketones 3++ , anion gap of 18, glucose 251, XRAY with significant bony abnormality c/w charcot vanc/zosyn in ed. blood cultures pending GENERAL APPEARANCE: AxOx4, mildly ill appearing, no acute distress. HEENT: NC, AT. MMM. EOMI, clear conjunctiva, oropharynx clear. NECK: Supple without lymphadenopathy. No stiffness or restricted ROM. HEART: Normal rate and regular rhythm, normal S1/S1, no m/r/g LUNGS: CTAB, moving air well. No crackles or wheezes are heard. ABDOMEN: Soft, nontender, nondistended with good bowel sounds heard. BACK: No CVAT, no obvious deformity. EXTREMITIES: bilateral feet with arch flattening/bowing, loss of fine touch/dull sensation on sole of right foot and digits, sensory intact on left NEUROLOGICAL: Grossly nonfocal. Alert and oriented, moving all 4 extremities. CN not formally tested but appear grossly intact. Observed to ambulate with normal gait. Skin: right foot with circumferential edema and dorsal erythema noted, small opening in callused area on lateral sole of foot without drainage #Unhealed surgical wound, diabetic ulcer right foot #Right Charcot foot c/b prior OM 03/2023 s/p surgery #Diabetic peripheral neuorpathy -Infectious work up pending -Discussed further imaging with Radiology: will be inconclusive given the bony abnormalities from Charcot joint, will discuss any further imaging with podiatry -continue vanc/zosyn ESR 98 /CRP 24.84 Podiatry consult placed #Euglycemic DKA, suspect #Anion gap metabolic acidosis -Urine with Ketones, gap of 18, on SGLT2 inhibitor , c/f infection as precipitating factor Ketones potentially starvation, but given reported symptoms c/f dka -Glucose stable -VBG, lactate ordered DKA protocol with D5 added until gap closes Glycemic consult Repat BMP q hours #Hyponatremia reports poor po intake in last week Trend BMP q4 rest of plan as above I spent a total of 35 minutes coordinating, documenting, and providing care for this patient excluding time spent in the performance of separately billed services. All of the aforementioned completed outside of collaborating with the assigned advanced practitioner for a full treatment plan. I have reviewed the advanced practitioner's documentation, and I agree with, and take responsibility for the plan of care
[2023-11-15] MEDS: PIPERACILLIN/TAZOBACTAM 4.5 GM/100 ML BAG IV ONE (14:02)
[2023-11-15] MEDS: SODIUM CHLORIDE 0.9% 1,000 ML IV ONE (14:03)
[2023-11-15] MEDS ORDERED: STAT IV Infusion **Titration per Protocol STA (14:21)
[2023-11-15] MEDS ORDERED: PHARMACY GLYCEMIC MGMT CONSULT PRN (14:21)
[2023-11-15 14:31] LABS: C Reactive Protein 24.84 mg/dl (0-0.5)
[2023-11-15] MEDS: VANCOMYCIN HCL 2,750 MG in SODIUM CHLORIDE 0.9% 500 ML IV ONE (14:35)
[2023-11-15 14:38] LABS: Base Excess VBG -2.8 mEq/L; HCO3 VBG 22 mmol/L; Oxygen Saturation VBG 63.3 %; PCO2 VBG 37 mmHg (38-50); PO2 VBG 36 mmHg; pH VBG 7.38 (7.36-7.41)
[2023-11-15] MEDS ORDERED: INSULIN REGULAR 250 UNITS in SODIUM CHLORIDE 0.9% 247.5 ML IV SCH (14:45)
[2023-11-15] MEDS ORDERED: INSULIN ASPART PER UNIT CHARGE SC SCH (16:30)
[2023-11-15 16:55] LABS: BUN Creatinine Ratio 22.3 (10-20); Blood Urea Nitrogen 23 mg/dl (6-23); Calcium 7.9 mg/dl (8.6-10.3); Carbon Dioxide 22 mmol/L (21-32); Chloride 99 mmol/L (98-107); Creatinine Clr Calc Pharmacy 116.4 ml/min; Est GFR (African American) 100.5 ml/min; Est GFR (Non-African American) 86.7 ml/min; Glucose 142 mg/dl (70-99(Fasting)); Phosphorus 4.7 mg/dl (2.5-4.9)
[2023-11-15 17:03] LABS: Magnesium 2.4 mg/dl (1.7-2.4); Potassium 3.9 mmol/L (3.5-5.1)
[2023-11-15] MEDS ORDERED: POLYETHYLENE (MIRALAX) 17 GM PACK PO PRN (17:09)
[2023-11-15] MEDS ORDERED: ACETAMINOPHEN 325 MG TAB PO PRN (17:09)
[2023-11-15] MEDS ORDERED: ALUMINUM/MAGNESIUM SUSP 30 ML UDC PO PRN (17:09)
[2023-11-15] MEDS ORDERED: MAGNESIUM HYDROXIDE SUSP 30 ML UDC PO PRN (17:09)
[2023-11-15 17:16] LABS: Anion Gap 9 (3-11)
[2023-11-15] MEDS: D5W AND 1/2NSS + 20MEQ KCL 20 MEQ/1,000 ML BAG IV SCH (17:43)
[2023-11-15] MEDS: DKA GOAL RANGE 150-250 mg/dl ONE (18:21)
[2023-11-15] MEDS: INSULIN ASPART PER UNIT CHARGE SC SCH ×2 (18:25→23:56)
[2023-11-15] MEDS: PIPERACILLIN/TAZOBACTAM 4.5 GM in DEXTROSE 5% MINI-B 100 ML IV SCH (20:55)
[2023-11-15] MEDS: PRAVASTATIN SOD 10 MG TAB PO SCH (20:56)
[2023-11-15] MEDS: ENOXAPARIN INJ 40 MG/0.4 ML SYR SQ SCH (20:57)
[2023-11-15 21:14] LABS: BUN Creatinine Ratio 25.3 (10-20); Calcium 8.8 mg/dl (8.6-10.3); Creatinine Clr Calc Pharmacy 159.3 ml/min; Est GFR (African American) 122.3 ml/min; Est GFR (Non-African American) 105.5 ml/min; Magnesium 2.4 mg/dl (1.7-2.4); Potassium 3.6 mmol/L (3.5-5.1)
--- NOTE | 2023-11-15 21:31 | Pharmacy Report ---
Pharmacy PK ABX Note - Date of Service November 15, 2023 - Assessment and Plan Assessment 48 year old M receiving VANCOMYCIN/ZOSYN for treatment of RIGHT FOOT ULCER Pertinent microbiologic data includes: Blood cultures pending. Previous right foot culture from July grew E. coli and MSSA. Afebrile, procal elevated at 1.22, mild leukocytosis Plan Vancomycin * Loading dose: 2750 mg IV x 1 * Maintenance dose: 1750 mg IV every 12 hours * Regimen is predicted to achieve target AUC/BRUNO of 400-600 mg/L.hr * Random level to be ordered if continued >48 hours Pharmacy will continue to follow and will adjust dose/frequency as necessary. Thank you. Pharmacy has transitioned to AUC monitoring for vancomycin. AUC/BRUNO is the preferred PK/PD target and is associated with decreased risk of nephrotoxicity compared to traditional trough targets.
--- NOTE | 2023-11-15 21:43 | Pharmacy Report ---
Pharmacy Glycemic Short Note 2 - Date of Service November 15, 2023 - Glycemic Short BSG Results (Last 24 hours): 11/15/23 11/15/23 11/15/23 11:12 15:23 15:52 Glucose 251 H 142 H POC Glucose 165 H 11/15/23 11/15/23 11/15/23 18:23 20:18 20:42 Glucose 132 H POC Glucose 133 H 130 H OUTPATIENT ANTIDIABETIC REGIMEN: * Dulaglutide, Empagliflozin * A1c pending ASSESSMENT: * Patient admitted with foot infection, history of type II diabetes. * BSG initially elevated at 251 mg/dL, appeared to be in mild DKA with CO2 18, anion gap 18 but VBG pH was normal * Initially entered insulin infusion per DKA protocol, however this was held per hospitalist until new sets of labs were drawn/resulted. On this set of labs, CO2/anion gap had corrected. Discussed with hospitalist- d/c insulin infusion (never started) and begin basal/bolus insulin. * BSGs have been in the 130s. Began novolog between stress of 1 and 2 weight based dosing. * Patient ordered a diet but will be NPO at midnight. PLAN FOR INPATIENT GLYCEMIC CONTROL: * Hold outpatient oral diabetes medications * Basal insulin * Lantus- Held for now, reassess in AM * Bolus insulin * NovoLog per scale ACHS or Q6hrs while NPO * Goal Range: Low 110 mg/dL - High 140 mg/dL * Correction Factor: 30 mg/dL/unit * Nutritional / Prandial insulin per carb ratio of 1 unit per 10 grams CHO consumed
[2023-11-16] MEDS: VANCOMYCIN HCL 1,750 MG in SODIUM CHLORIDE 0.9% 500 ML IV SCH
[2023-11-16] MEDS ORDERED: VANCOMYCIN HCL 1,500 MG in SODIUM CHLORIDE 0.9% 500 ML IV SCH
[2023-11-16 00:45] LABS: BUN Creatinine Ratio 24.1 (10-20); Calcium 8.6 mg/dl (8.6-10.3); Creatinine Clr Calc Pharmacy 159.3 ml/min; Est GFR (African American) 122.3 ml/min; Est GFR (Non-African American) 105.5 ml/min; Magnesium 2.3 mg/dl (1.7-2.4); Phosphorus 2.9 mg/dl (2.5-4.9); Potassium 3.9 mmol/L (3.5-5.1)
[2023-11-16 04:36] LABS: Basophils # (auto) 0.04 K/uL (0.00-0.20); Basophils % (auto) 0.4 %; Eosinophils # (auto) 0.03 K/uL (0.00-0.50); Eosinophils % (auto) 0.3 %; Hematocrit (blood only) 42.4 % (42.0-52.0); Hemoglobin 13.7 g/dl (14.0-18.0); Immature Granulocytes # (auto) 0.09 K/uL (0.01-0.20); Immature Granulocytes % (auto) 0.9 %; Lymphocytes # (auto) 1.24 K/uL (1.20-3.40); Mean Corpuscular Hemoglobin 26.2 pg (25.0-34.0); Mean Corpuscular Hgb Conc 32.3 g/dL (32.0-36.0); Mean Corpuscular Volume 81.1 fL (80.0-100.0); Mean Platelet Volume 9.8 fL (9.4-12.4); Monocytes # (auto) 1.29 K/uL (0.11-0.59); Monocytes % (auto) 12.5 %; Neutrophils # (auto) 7.63 K/uL (1.40-6.50); Neutrophils % (auto) 73.9 %; Platelet Count 208 K/uL (130-400); RDW Standard Deviation 43.8 fL (36.4-46.3); Red Blood Count 5.23 M/uL (4.70-6.10); White Blood Count 10.32 K/ul (4.8-10.8)
[2023-11-16 04:40] LABS: A calco-baum cmplx NotReported Not Detected (NotDetected); Bact fragilis Not Reported Not Detected (NotDetected); Blood Culture Id Panel See PCR Comment (NotDetected); C auris Not Reported Not Detected (NotDetected); Calbicans Not Reported Not Detected (NotDetected); Candida glabrata Not Reported Not Detected (NotDetected); Candida krusei Not Reported Not Detected (NotDetected); Cneoformans/gatti Not Reported Not Detected (NotDetected); Cparapsilosis Not Reported Not Detected (NotDetected); E cloacae compx Not Reported Not Detected (NotDetected); Efaecalis Not Reported Not Detected (NotDetected); Efaecium Not Reported Not Detected (NotDetected); Enterobacterales Not Reported Not Detected (NotDetected); Escherichia coli Not Reported Not Detected (NotDetected); H influenzae Not Reported Not Detected (NotDetected); K aerogenes Not Reported Not Detected (NotDetected); Koxytoca Not Reported Not Detected (NotDetected); Kpneumoniae grp Not Reported Not Detected (NotDetected); Lmonocyt Not Reported Not Detected (NotDetected); N meningitidis Not Reported Not Detected (NotDetected); P aeruginosa Not Reported Not Detected (NotDetected); Proteus spp Not Reported Not Detected (NotDetected); Salmonella spp Not Reported Not Detected (NotDetected); Smarcescens Not Reported Not Detected (NotDetected); Staph lugdunensis Not Reported Not Detected (NotDetected); Staph spp. Not Reported DETECTED (NotDetected); Staphaureus Not Reported DETECTED (NotDetected); Staphepi Not Reported Not Detected (NotDetected); Staphylococcus spp. DETECTED (NotDetected); Stenmaltophilia Not Reported Not Detected (NotDetected); Strep agal(GrpB) Not Reported Not Detected (NotDetected); Strep pneum Not Reported Not Detected (NotDetected); Strep pyog (GrpA) Not Reported Not Detected (NotDetected); Strep spp Not Reported Not Detected (NotDetected); mecAC+MREJ Resistant Gene MRSA Not Detected (NotDetected)
[2023-11-16 04:41] LABS: Albumin Globulin Ratio 0.9 (0.9-2); Albumin Level 3.2 gm/dl (3.4-5.0); BUN Creatinine Ratio 20.5 (10-20); Bilirubin,Total 0.7 mg/dl (0.2-1.0); Calcium 8.7 mg/dl (8.6-10.3); Creatinine Clr Calc Pharmacy 150.3 ml/min; Est GFR (African American) 119.4 ml/min; Globulin 3.7 gm/dl (2.5-4.0); Magnesium 2.2 mg/dl (1.7-2.4); Phosphorus 3.1 mg/dl (2.5-4.9); Potassium 4.1 mmol/L (3.5-5.1); Total Protein 6.9 gm/dl (6.0-8.3)
[2023-11-16] MEDS ORDERED: CARBOHYDRATES FOR HYPOGLYCEMIA PO PRN (07:15)
[2023-11-16] MEDS ORDERED: DEXTROSE 50% 50 ML SYRINGE IV PRN (07:15)
[2023-11-16] MEDS ORDERED: GLUCAGON FOR INJ 1 MG VIAL IM PRN (07:15)
[2023-11-16] MEDS ORDERED: GLUCOSE 40% GEL 15 GM TUBE PO PRN (07:15)
[2023-11-16] MEDS ORDERED: GLUCOSE 10 TAB/TUBE PO PRN (07:15)
[2023-11-16 08:14] LABS: Estimated Average Glucose 169 mg/dl; Hemoglobin A1C 7.5 % (4.5-5.6)
--- NOTE | 2023-11-16 08:22 | Hospitalist Progress Note ---
Date of Service November 16, 2023 Assessment & Plan (1) DKA (diabetic ketoacidosis): (2) Diabetic ulcer of right foot: (3) Charcot's arthropathy: (4) Diabetic peripheral neuropathy: (5) HTN (hypertension): (6) HLD (hyperlipidemia): (7) High anion gap metabolic acidosis: Plan This is a 48 yr old M who has a significant PMH of T2DM complicated for diabetic foot wound, R foot charcot arthopathy, diabetic neuropathy, HTN, HLD, hx of morbid obesity, who presents to ED 2/2 ill feeling and worsening swelling to R diabetic foot wound. Euglycemic DKA High anion gap metabolic acidosis pt with ketonuria, elevated anion gap in setting of euglycemia-mild hyperglycemia, normal vbg patient reports compliance with Jardiance and Trulicity His Anion Gap was borderline on admission; however, repeat labs showed a closed anion gap and overnight insulin gtt was not initiated. Discussed with Pharmacy this AM on 11/15; Anion Gap this AM 15. Placed on Insulin gtt with preceeding D5NS + 20KCL @ 200mL/hour Repeat Anion Gap 10; will continue Q4 labs and if two anion gaps in a row, will stop/hold Insulin gtt. Keep NPO until gap remains closed. continue to hold home diabetic regimen on jardiance, trulicity A1C today 7.5 glycemic pharmacy consult placed Continue Q4 labs Bacteremia: Blood cultures from admission gram + cocci; continue IV Zosyn for now Likely in the setting of unhealed surgical wound Repeat blood cultures drawn today Will continue IV Zosyn for now and adjust based on blood cultures Drop Vanco since likely MSSA and negative MRSA ECHO ordered and performed; no murmur on examination. EF 65-70%, aortic valve leaflet with possible AV Vegetation. RODRI ordered and messaged Cardiology Consider ID consult on 11/17/23 Unhealed surgical wound of right diabetic foot ulcer Diabetic Charcot arthropathy Diabetic peripheral neuropathy follows Dr. Mace of [facility] has been dealing with wound for last 4 years has been receiving laser therapy to wound, last treatment was 1 week ago over last week noted increased red/swelling, but no drainage consult podiatry discussed with radiology who felt MRI would be of no benefit to patient given charcot foot and inability to truly delineate if osteomyelitis is present Discussed with Podiatry on 11/15 who stated that he suspects his wound is likely secondary to Charcot and does not suspect any surgical intervention. blood cultures from admission gram + cocci; continue IV Zosyn for now NWB to R foot; obtaining a boot as an outpatient. CRP 24.[address] ordered to R/O osteomyelitis; Has had CT of foot in 2021 negative for Osteo. Hyponatremia, corrected at 130 likely in setting of pending DKA and poor intake continue IVF, will follow BMP HTN chronic, stable continue losartan HLD chronic, stable continue statin Disposition: Code Status: FULL CODE PCP: Dr. Mittal VTE Prophylaxis: Lovenox SQ I spent a total of 52 minutes coordinating, documenting and providing care for this patient excluding time spent in performance of separately billed services Admission and Anticipated Discharge Date Admission Date: November 15, 2023 Supervising Physician Co-Signing Physician Notes Patient seen and examined Reports feeling better today Reviewed labs on admission and this AM IVF and insulin drip for Euglycemic DKA Plan to transition to subcut once Anion GAP is closed x 2 Continue zosyn Growing GPC in clusters. PCR suggests MSSA. Hence MSSA bacteremia Get CT foot to rule out OM TTE reports possible aortic valve vegetation Get RODRI Will get ID c/s in AM Agree with findings and plans as detailed by Alessia RAMOS and take full responsibility Subjective Patient admitted with euglycemic DKA and high AG metabolic acidosis. Patient with ketonuria but had a normal VBG. He is laying in his hospital bed in no apparent distress. ECHO being obtained at bedside. He states that he has no chest pain or SOB. He states that he has decreased sensation up to his calf area during tactile stimulation. He reports that he has had a foot CT performed in 2021 without osteomyelitis Discussed being on an Insulin drip and provided education on euglycemic DKA; patient receptive to be placed on insulin gtt I discussed with Podiatry who suspects that this is related to diabetic Carcot vs Osteo as outlined in A/P. Supports getting a baseline foot CT. Review of Systems Review of Systems: Neuro: (-) Falls, trauma, slurred speech HEENT: (-) MOY, dizziness, dysphagia, visual or auditory changes CV: (-) CP, palpitations, swelling Resp: (-) SOB GI: (-) appetite changes, N/V/D, bowel changes : (-) urinary changes Skin: (-) rashes Psych: (-) anxiety, depression Physical Exam Physical Exam: Neuro: AAOx4, PERRLA, no aphagia, memory changes, CNII-XII grossly intact HEENT: head normocephalic, moist mucus membranes CV: S1/S2, (-) M/G/R, (-) edema, cap refill < 3 seconds Resp: Lungs CTA in all re[place]. On RA GI: Abdomen S/NT/ND, Ax4 bowel sounds, (-) CVA tenderness Musculoskeletal: 5/5 B/L UE strength, 5/5 B/L LE strength. No gait disturbance Skin: (-) rashes , (-) erythema. Psych: euthymic mood Results & Data Results & Data Vital Signs (Past 12 Hours) Vital Signs Temp Pulse Pulse Resp BP Pulse Ox O2 Del Method 11/16/23 07:27 37.2 C 97 H 18 122/74 96 Room Air 11/16/23 05:56 101 H 11/16/23 02:35 37.8 C H 98 H 16 127/70 95 Room Air 11/15/23 23:04 36.7 C 95 H 18 111/65 95 Room Air 11/15/23 22:02 98 H Laboratory Results Short CBC 11/16/23 Range/Units 03:57 WBC 10.32 (4.8-10.8) K/ul Hgb 13.7 L (14.0-18.0) g/dl Hct 42.4 (42.0-52.0) % Plt Count 208 (130-400) K/uL BMP 11/15/23 11/15/23 11/15/23 14:31 15:52 20:42 Sodium 130 L TNP 134 L Potassium 3.9 TNP 3.6 Chloride 99 99 Carbon Dioxide 22 23 BUN 23 21 Creatinine 1.03 0.83 Glucose 142 H 132 H Calcium 7.9 L 8.8 11/16/23 11/16/23 11/16/23 00:14 03:57 07:43 Sodium 132 L 133 L 134 L Potassium 3.9 4.1 4.0 Chloride 99 99 100 Carbon Dioxide 22 20 L 19 L BUN 20 18 17 Creatinine 0.83 0.88 0.86 Glucose 130 H 114 H 119 H Calcium 8.6 8.7 8.4 L 11/16/23 14:29 Sodium 134 L Potassium 3.9 Chloride 101 Carbon Dioxide 23 BUN 14 Creatinine 0.79 Glucose 115 H Calcium 8.7 Liver Function 11/16/23 Range/Units 03:57 Total Bilirubin 0.7 (0.2-1.0) mg/dl AST 21 (13-39) U/L ALT 27 (7-52) U/L Alkaline Phosphatase 65 (34-104) U/L Albumin 3.2 L (3.4-5.0) gm/dl (1) DKA (diabetic ketoacidosis) Diabetes mellitus complication detail: without coma (2) Diabetic ulcer of right foot Diabetes mellitus type: type 2 Diabetic foot ulcer location: midfoot Non- pressure ulcer stage: limited to breakdown of skin Qualified Code(s): E11.621 - Type 2 diabetes mellitus with foot ulcer; L97.411 - Non-pressure chronic ulcer of right heel and midfoot limited to breakdown of skin
[2023-11-16 08:24] LABS: BUN Creatinine Ratio 19.8 (10-20); Calcium 8.4 mg/dl (8.6-10.3); Est GFR (African American) 120.5 ml/min; Magnesium 2.2 mg/dl (1.7-2.4); Phosphorus 3.2 mg/dl (2.5-4.9)
[2023-11-16] MEDS: LOSARTAN POTASSIUM 25 MG TAB PO SCH (08:48)
[2023-11-16] MEDS ORDERED: STAT IV Infusion **Titration per Protocol STA (09:48)
[2023-11-16] MEDS: D5NSS + 20MEQ KCL 20 MEQ/1,000 ML BAG IV SCH (10:13)
[2023-11-16] MEDS: INSULIN REGULAR 250 UNITS in SODIUM CHLORIDE 0.9% 247.5 ML IV SCH (10:15)
--- NOTE | 2023-11-16 10:55 | Electrocardiogram Report ---
Test Reason : Blood Pressure : / mmHG Vent. Rate : 106 BPM Atrial Rate : 106 BPM P-R Int : 180 ms QRS Dur : 098 ms QT Int : 376 ms P-R-T Axes : 031 073 047 degrees QTc Int : 499 ms Sinus tachycardia Incomplete right bundle branch block Borderline ECG No previous ECGs available Confirmed by Gustavo Bearden ([id number]) on 11/16/2023 10:55:31 AM Referred By: REFERRED SELF Confirmed By:Yg Bearden
[2023-11-16] MEDS: INSULIN ASPART PER UNIT CHARGE SC SCH ×2 (12:14→19:13)
--- NOTE | 2023-11-16 15:12 | Pharmacy Report ---
Pharmacy Glycemic Short Note 2 - Date of Service November 16, 2023 - Glycemic Short BSG Results (Last 24 hours): 11/15/23 11/15/23 11/15/23 15:23 15:52 18:23 Glucose 142 H POC Glucose 165 H 133 H 11/15/23 11/15/23 11/15/23 20:18 20:42 23:51 Glucose 132 H POC Glucose 130 H 124 H 11/16/23 11/16/23 11/16/23 00:14 03:57 06:25 Glucose 130 H 114 H POC Glucose 110 H 11/16/23 11/16/23 11/16/23 07:43 10:02 11:02 Glucose 119 H POC Glucose 118 H 118 H 11/16/23 11/16/23 11/16/23 11:53 13:01 13:59 Glucose POC Glucose 119 H 93 99 11/16/23 14:59 Glucose POC Glucose 117 H OUTPATIENT ANTIDIABETIC REGIMEN: * Dulaglutide, Empagliflozin * A1c pending ASSESSMENT: 11/15: * Labs worsening this AM, anion gap now elevated - discussed with provider and wishes to start insulin drip for euglycemic DKA. D5NS+20 k started along with insulin drip at 0.1 units/kg/hr -Managed insulin infusion based upon BSGs and adjusted accordingly. * BSGs trending down slightly this afternoon, held drip, but now resuming at 3 units/hr - awaiting repeat BMP 11/14 * Patient admitted with foot infection, history of type II diabetes. * BSG initially elevated at 251 mg/dL, appeared to be in mild DKA with CO2 18, anion gap 18 but VBG pH was normal * Initially entered insulin infusion per DKA protocol, however this was held per hospitalist until new sets of labs were drawn/resulted. On this set of labs, CO2/anion gap had corrected. Discussed with hospitalist- d/c insulin infusion (never started) and begin basal/bolus insulin. * BSGs have been in the 130s. Began novolog between stress of 1 and 2 weight based dosing. * Patient ordered a diet but will be NPO at midnight. PLAN FOR INPATIENT GLYCEMIC CONTROL: * Hold outpatient oral diabetes medications * Insulin drip per DKA - continue infusion until DKA resolves
[2023-11-16 15:17] LABS: BUN Creatinine Ratio 17.7 (10-20); Calcium 8.7 mg/dl (8.6-10.3); Creatinine Clr Calc Pharmacy 166.5 ml/min; Est GFR (African American) 124.8 ml/min; Est GFR (Non-African American) 107.7 ml/min; Potassium 3.9 mmol/L (3.5-5.1)
--- NOTE | 2023-11-16 17:08 | Podiatry Consultation ---
Date of Consultation November 16, 2023 Assessment & Plan (1) Cellulitis in diabetic foot: (2) Diabetic ulcer of right foot: Diabetes mellitus type: type 2 Diabetic foot ulcer location: midfoot Non-pressure ulcer stage: limited to breakdown of skin Qualified Code(s): E11.621 - Type 2 diabetes mellitus with foot ulcer; L97.411 - Non- pressure chronic ulcer of right heel and midfoot limited to breakdown of skin (3) DKA (diabetic ketoacidosis): Diabetes mellitus complication detail: without coma Diabetes me llitus type: type 2 Qualified Code(s): E11.10 - Type 2 diabetes mellitus with ketoacidosis without coma (4) Charcot's joint, right ankle and foot: Plan Patient examined and evaluated. He is pending as T scan at this time. The CT can help elucidate any changes to his foot recently. It is unlikely that he has any on the underlying osteomyelitis at this time, as he had a recent triphasic bone scan that did not reveal any increase uptake suggestive of bone infection. The ulceration currently would not be contributing to any bone infection, as it does not probe anywhere near the bone. Currently no open ulceration and it does appear well-healed even with debridement of overlying hyperkeratotic skin at today's visit. He would likely do well continuing oral antibiotics for the next 2 weeks to rule out or treat any underlying cellulitis. Overall, the level of erythema and edema to his right lower showed he is consistent with Charcot neuroarthropathy as a whole, as well. He can likely be discharged as soon as his diabetic control is established and he is more systemically stable. Again, the CT scan and at the very minimum provided good baseline for further treatment. We will keep an eye on him while he remains inpatient, though no surgical intervention is planned at this time, as the ulcer was able to be debrided safely, adequately at bedside. Thank you for the consult. Look forward to helping out with while inpatient and he can continue follow-up with his regular provider outpatient upon discharge. History of Present Illness Reason for Consultation: Right foot charcot versus osteomyelitis Attending Physician: Jenny Tovar MD History of Present Illness Patient seen at bedside. He states that over the last week or so so he has developed increasing signs of infection, locally and systemically. He has a long-standing history of right foot Charcot neuroarthropathy and has had a plantar ulceration treated For the last few years. It is increasingly healing with outpatient therapy, however, he has developed this increase in redness, swelling, heat, and potential drainage. He states that initially, upon presentation to the emergency department, he had systemic signs of infection including weakness, nausea, fever, and swelling. Now, after a few days of antibiotics, he is improving. He states that his blood sugar has also been better managed here in the hospital and had been recently at home. He denies any recent changes to his medication but does not believe his blood sugar has been under good control at all. He denies any new or worsening signs or symptoms of infection to the ulcer and was last treated for it last week. He denies any recent medical history change as well. Allergies Allergy/AdvReac Type Severity Reaction Status Date / Time PRESERVATIVES Allergy Unknown eyes Uncoded 04/10/14 11:40 swell, tightness of throat Home Medications Medication Instructions Recorded Confirmed Type dulaglutide 1.5 mg/0.5 mL 1.5 mg subcut Q7D 11/15/23 11/15/23 History subcutaneous pen injector (Trulicity) empagliflozin 25 mg tablet 25 mg PO DAILY 11/15/23 11/15/23 History (Jardiance) losartan 25 mg tablet 25 mg PO DAILY 11/15/23 11/15/23 History pravastatin 10 mg tablet 10 mg PO HS 11/15/23 11/15/23 History Patient History Medical History Charcot's arthropathy Diabetic peripheral neuropathy HLD (hyperlipidemia) HTN (hypertension) T2DM (type 2 diabetes mellitus) Obesity, morbid, BMI 40.0-49.9 Surgical History Hx of foot surgery multiple surgeries on R foot regarding ulcer Family History Father No problems noted. 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 Beliefs That Will Affect Care: None Current Living Situation: Spouse and Family Current Living Situation Comment: lives with and kids Other Information That Helps Us Care for You: No Feels Safe at Home: Yes Safety Concerns: Feels Safe At This Time Assistive Devices: CPAP Review of Systems Review of Systems: All systems reviewed & are unremarkable except as noted in HPI & below Constitutional: no fever, no chills and no fatigue Eyes: no problem reported Ear, Nose, Mouth, Throat: no problem reported Respiratory: no problem reported Cardiovascular: + edema; no problem reported Gastrointestinal: no nausea, no vomiting and no problem reported Musculoskeletal: no problem reported Integumentary: + skin ulcer, + wounds and + erythema Neurologic: + loss of sensation, + numbness and + pa resthesia; no generalized weakness Psychiatric: no problem reported Physical Exam Physical Exam: Lower extremity focused exam: DP/PT pulses 2/4. CFT brisk to digits. Warmth noted to b/l LE, greater on the right. Callus formation noted sub-calcaneocuboid joint. Upon sharp debridement at bedside, no underlying deep ulceration noted. Absent protective sensation/pain sensation. Crepitus is noted on passive ROM of the foot and ankle, consistent with chronic degenerative changes throughout the midfoot. Extreme rocker bottom deformity is noted, consistent with this longstanding Charcot collapse. Constitutional: WD/WN, vitals as above + ill appearing and + obese Eyes: PERRL, conjunctivae normal, anicteric sclerae ENMT: external ear and nose normal, oropharynx normal Neck: trachea midline, no thyromegaly normal visual inspection Respiratory: normal respiratory effort; no respiratory distress Cardiovascular: Rate/Rhythm: regular rate and regular rhythm Chest (Breasts): Chest: normal inspection of chest Gastrointestinal (Abdomen): Inspection/Auscultation: abdomen normal to inspection Percussion/Palpation: + abdomen tender and abdomen soft Musculoskeletal: no cyanosis or clubbing, extremities motor strength 5/5 Head/Neck/Chest: normocephalic and head atraumatic Extremities: extremities normal to inspection Ankle: + ankle ROM with crepitation Skin: + lesion, + ulcer, + erythema, + nails d iscolored and + nails dystrophic; no eschar and no fluctulance Trauma: no evidence of skin trauma Neurologic: awake; no focal motor deficits Psychiatric: A+Ox3, euthymic affect Results & Data Vital Signs (Past 12 Hours) Vital Signs Temp Pulse Pulse Resp BP Pulse Ox O2 Del Method 11/16/23 14:41 36.6 C 92 H 18 115/73 97 Room Air 11/16/23 14:02 94 H 11/16/23 11:40 37.3 C 82 18 124/74 95 Room Air 11/16/23 07:27 37.2 C 97 H 18 122/74 96 Room Air 11/16/23 05:56 101 H Diagnostic Findings Plain film imaging consistent with chronic Charcot neuroarthropathy of the midfoot joint. There are no acute fractures or dislocations and no obvious evidence of osteomyelitis. Advanced imaging may be helpful in further differentiating the disease processes.
[2023-11-16 18:20] LABS: BUN Creatinine Ratio 16.7 (10-20); Calcium 8.4 mg/dl (8.6-10.3); Creatinine Clr Calc Pharmacy 182.7 ml/min; Est GFR (African American) 129.7 ml/min; Est GFR (Non-African American) 111.9 ml/min; Potassium 3.9 mmol/L (3.5-5.1)
[2023-11-16] MEDS: LANTUS PER UNIT CHARGE SC ONE (19:13)
[2023-11-16 22:01] LABS: BUN Creatinine Ratio 12.9 (10-20); Calcium 8.2 mg/dl (8.6-10.3); Creatinine Clr Calc Pharmacy 154.8 ml/min; Est GFR (African American) 121.1 ml/min; Est GFR (Non-African American) 104.5 ml/min; Potassium 3.7 mmol/L (3.5-5.1)
[2023-11-17] MEDS: INSULIN ASPART PER UNIT CHARGE SC SCH (00:04)
[2023-11-17] MEDS: SODIUM CHLORIDE 0.9% 1,000 ML IV SCH (00:11)
[2023-11-17 06:22] LABS: Basophils # (auto) 0.06 K/uL (0.00-0.20); Basophils % (auto) 0.6 %; Eosinophils # (auto) 0.11 K/uL (0.00-0.50); Eosinophils % (auto) 1.1 %; Hematocrit (blood only) 38.7 % (42.0-52.0); Hemoglobin 12.6 g/dl (14.0-18.0); Immature Granulocytes # (auto) 0.23 K/uL (0.01-0.20); Immature Granulocytes % (auto) 2.3 %; Lymphocytes # (auto) 1.46 K/uL (1.20-3.40); Lymphocytes % (auto) 14.9 %; Mean Corpuscular Hemoglobin 26.8 pg (25.0-34.0); Mean Corpuscular Hgb Conc 32.6 g/dL (32.0-36.0); Mean Corpuscular Volume 82.2 fL (80.0-100.0); Mean Platelet Volume 9.6 fL (9.4-12.4); Monocytes # (auto) 1.07 K/uL (0.11-0.59); Monocytes % (auto) 10.9 %; Neutrophils # (auto) 6.86 K/uL (1.40-6.50); Neutrophils % (auto) 70.2 %; Platelet Count 245 K/uL (130-400); RDW Coefficient of Variation 14.9 % (11.5-14.5); RDW Standard Deviation 45.2 fL (36.4-46.3); Red Blood Count 4.71 M/uL (4.70-6.10); White Blood Count 9.79 K/ul (4.8-10.8)
[2023-11-17 06:36] LABS: Calcium 8.3 mg/dl (8.6-10.3); Creatinine Clr Calc Pharmacy 154.1 ml/min; Est GFR (African American) 120.5 ml/min; Potassium 3.7 mmol/L (3.5-5.1)
--- NOTE | 2023-11-17 08:43 | Hospitalist Progress Note ---
Date of Service November 17, 2023 Assessment & Plan (1) DKA (diabetic ketoacidosis): (2) Diabetic ulcer of right foot: (3) Charcot's arthropathy: (4) Diabetic peripheral neuropathy: (5) HTN (hypertension): (6) HLD (hyperlipidemia): (7) High anion gap metabolic acidosis: (8) Infective endocarditis: Plan This is a 48 yr old M who has a significant PMH of T2DM complicated for diabetic foot wound, R foot charcot arthopathy, diabetic neuropathy, HTN, HLD, hx of morbid obesity, who presents to ED 2/2 ill feeling and worsening swelling to R diabetic foot wound; confirmed osteomyelitis with abscess with possible septic arthritis and tenosynovitis. Possible AV vegetation. Infectious Endocarditis: Bacteremia: Acute In the setting of osteomyelitis + unhealed surgical wound Blood cultures from admission gram + cocci; Third set of cultures + for gram cocci in clusters; continue IV Zosyn for now Daily blood cultures until source control No leukocytosis currently; WBC 9.79 Will continue IV Zosyn for now for broad coverages; await ID consult to adjust based on cultures ECHO ordered and performed; no murmur on examination. EF 65-70%, aortic valve leaflet with possible AV Vegetation. RODRI performed today: moderate focal thickening in the setting of positive blood cultures would treat for early endocarditis; likely need jail IV abx. No valve regurgitation, small PFO noted Pending results of RODRI will involve Infectious Disease Keep NPO after MN Osteomyelitis: Unhealed surgical wound of right diabetic foot ulcer Diabetic Charcot arthropathy Diabetic peripheral neuropathy follows Dr. [facility] has been dealing with wound for last 4 years including laser wound therapy Last tx last week; with worsening increased red/swelling, but no drainage blood cultures from admission gram + cocci; continue IV Zosyn for now No leukocytosis; WBC 9.79 CRP 24.84 on admission Podiatry on board Foot CT 11/16: - Several multiloculated rim-enhancing fluid collections deep to the wound measure up to 3 x 2.3 cm and represent abscesses. -Associated bony erosion of the bases of the fourth and fifth metatarsals and the fourth and fifth tarsometatarsal joints suggestive of osteomyelitis with possible septic arthritis. -Nondisplaced fracture of the base of the fifth metatarsal that extends into the base of the fourth metatarsal. -Findings suggestive of septic tenosynovitis of the tendon sheath of the extensor digitorum longus with several rim enhancing pockets of fluid suggestive of abscesses. Given the duration of the ulceration and the more recent signs of infection, will involve Vascular as this is Charcot + Osteomyelitis for discussion about possible BKA. In discussion with podiatry, may require BKA discussion with vascular Euglycemic DKA: High anion gap metabolic acidosis: pt with ketonuria, elevated anion gap in setting of euglycemia-mild hyperglycemia, normal vbg AG remains closed at 10; Insulin gtt off in the evening yesterday; resolved for now A1C 7/5 11/16/23 continue to hold home diabetic regimen on Tahmina Newman HTN: chronic, stable continue losartan HLD: chronic, stable continue statin Disposition: Code Status: FULL CODE PCP: Dr. Mittal VTE Prophylaxis: Lovenox SQ I spent a total of 51 minutes coordinating, documenting and providing care for this patient excluding time spent in performance of separately billed services Admission and Anticipated Discharge Date Admission Date: November 15, 2023 Supervising Physician Co-Signing Physician Notes Patient seen and examined Reports some right foot pain, has neuropathy No other complaints MSSA bacteremia CT Right foot showed 3x2.3cm abscess in midfoot. Associated bony erosion of bases of fourth and fifth metatarsal and fourth and fifth TMJ suggestive of OM with possible septic arthrits Patient has Right foot abscess, osteomyelitis, MSSA bacteremia, Possible Infective endocarditis based on TTE Euglycemic DKA has resolved RODRI this afternoon showed Aortic valvular vegetation/endocarditis, small R->L interatrial shunt, small PFO ID consult Podiatry recommends ortho or vascular eval. May need BKA. Podiatry planning Possible I&D/debridement on Vascular consulted Continue emma for now Agree with findings and plans as detailed by Alessia RAMOS and take full responsibility Subjective He is laying in his hospital bed in no apparent distress. He states that he has no chest pain or SOB. He states that he has decreased sensation up to his calf area during tactile stimulation. Third set of cultures + for gram cocci in clusters Foot CT: - Several multiloculated rim-enhancing fluid collections deep to the wound measure up to 3 x 2.3 cm and represent abscesses. -Associated bony erosion of the bases of the fourth and fifth metatarsals and the fourth and fifth tarsometatarsal joints suggestive of osteomyelitis with possible septic arthritis. -Nondisplaced fracture of the base of the fifth metatarsal that extends into the base of the fourth metatarsal. -Findings suggestive of septic tenosynovitis of the tendon sheath of the extensor digitorum longus with several rim enhancing pockets of fluid suggestive of abscesses. Given the duration of the ulceration and the more recent signs of infection, will involve Vascular surgery given the complexity of Chacot + Osteomyelitis as recommended by Podiatry Podiatry plans to schedule patient for bone biopsy + I/D for 11/18 AG remains closed at 10; Insulin gtt off in the evening yesterday Cardiology to do RODRI this afternoon as ECHO results indicated possible AV vegetation Given persistent positive blood cultures will involve Infectious Disease If indication for CT surgery, will consider/discuss transfer Review of Systems Review of Systems: Neuro: (-) Falls, trauma, slurred speech HEENT: (-) MOY, dizziness, dysphagia, visual or auditory changes CV: (-) CP, palpitations, swelling Resp: (-) SOB GI: (-) appetite changes, N/V/D, bowel changes : (-) urinary changes Skin: (-) rashes Psych: (-) anxiety, depression Physical Exam Physical Exam: Neuro: AAOx4, PERRLA, no aphagia, memory changes, CNII-XII grossly intact HEENT: head normocephalic, moist mucus membranes CV: S1/S2, (-) M/G/R, (-) edema, cap refill < 3 seconds Resp: Lungs CTA in all reynaga. On RA GI: Abdomen S/NT/ND, Ax4 bowel sounds, (-) CVA tenderness Musculoskeletal: 5/5 B/L UE strength, 5/5 B/L LE strength. No gait disturbance Skin: (-) rashes , (-) erythema. Psych: euthymic mood Results & Data Results & Data Vital Signs (Past 12 Hours) Vital Signs Temp Pulse Pulse Resp BP Pulse Ox O2 Del Method 11/17/23 08:00 37.0 C 98 H 18 120/72 97 Room Air 11/17/23 07:37 94 H 11/17/23 02:25 36.8 C 99 H 16 101/60 96 Room Air 11/16/23 23:41 37.6 C H 92 H 16 118/74 95 Room Air 11/16/23 22:02 94 H Laboratory Results Short CBC 11/17/23 Range/Units 05:54 WBC 9.79 (4.8-10.8) K/ul Hgb 12.6 L (14.0-18.0) g/dl Hct 38.7 L (42.0-52.0) % Plt Count 245 (130-400) K/uL BMP 11/16/23 11/16/23 11/16/23 14:29 17:33 21:31 Sodium 134 L 134 L 135 L Potassium 3.9 3.9 3.7 Chloride 101 103 103 Carbon Dioxide 23 23 26 BUN 14 12 11 Creatinine 0.79 0.72 0.85 Glucose 115 H 120 H 151 H Calcium 8.7 8.4 L 8.2 L 11/17/23 05:54 Sodium 135 L Potassium 3.7 Chloride 103 Carbon Dioxide 21 BUN 12 Creatinine 0.86 Glucose 147 H Calcium 8.3 L Diagnostic Findings Foot CT 11/16/23 10:[address] WITH CONTRAST CLINICAL HISTORY: Evaluate for osteomyelitis. COMPARISON STUDY: Right foot radiographs November 15, 2023. TECHNIQUE: Axial images of the right foot were obtained following intravenous injection of 94 cc of Optiray 320 IV. Sagittal and coronal reconstructions were viewed. Automated exposure control was utilized for the study. A dose lowering technique was utilized adhering to the principles of ALARA. FINDINGS: Extensive right mid foot deformity is suggestive of neuropathic arthropathy. Specifically, there is pes planus with rocker bottom deformity. Severe arthritic changes noted with bony fragmentation and midfoot collapse. Several articulations are fused. There is a nondisplaced fracture through the base of the fifth metatarsal. The fourth and fifth metatarsals and tarsometatarsal joints are fused. Fracture extends to the base of the fourth metatarsal. Of note, there is a wound of the plantar midfoot. Deep to the wound, there are several rim-enhancing fluid collections along the bases of the fourth and fifth metatarsals and the fourth and fifth tarsometatarsal joints. The largest collection measures 3 x 2.3 cm. An adjacent collection measures 2.4 x 1.2 cm. Associated bone erosion of the bases of the fourth and fifth metatarsals and the fourth and fifth metatarsophalangeal joints are present. No additional acute erosions within the right foot are identified. There are no additional fractures within the right foot. Diffuse soft tissue swelling is noted. Tendon sheath for the extensor digitorum longus is distended with associated enhancement. Several pockets of fluid within the extensor tendon sheaths measure up to 2.8 x 0.8 cm. There is no soft tissue gas within the right foot. IMPRESSION: 1. Severe degenerative changes of the right midfoot suggestive of neuropathic arthropathy, as described above. 2. Wound of the plantar midfoot. Several multiloculated rim-enhancing fluid collections deep to the wound measure up to 3 x 2.3 cm and represent abscesses. Associated bony erosion of the bases of the fourth and fifth metatarsals and the fourth and fifth tarsometatarsal joints suggestive of osteomyelitis with possible septic arthritis. 3. Nondisplaced fracture of the base of the fifth metatarsal that extends into the base of the fourth metatarsal. 4. Findings suggestive of septic tenosynovitis of the tendon sheath of the extensor digitorum longus with several rim enhancing pockets of fluid suggestive of abscesses. ACT 112: Negative or not required by law. Electronically signed by: Law Martel M.D. 11/17/2023 11:31 AM (1) DKA (diabetic ketoacidosis) Diabetes mellitus complication detail: without coma Diabetes mellitus type: type 2 Qualified Code(s): E11.10 - Type 2 diabetes mellitus with ketoacidosis without coma (2) Diabetic ulcer of right foot Diabetes mellitus type: type 2 Diabetic foot ulcer location: midfoot Non- pressure ulcer stage: limited to breakdown of skin Qualified Code(s): E11.621 - Type 2 diabetes mellitus with foot ulcer; L97.411 - Non-pressure chronic ulcer of right heel and midfoot limited to breakdown of skin
[2023-11-17] MEDS: LANTUS PER UNIT CHARGE SC SCH ×2 (09:37→21:32)
[2023-11-17] MEDS ORDERED: LOPERAMIDE HCL 2 MG CAP PO PRN (09:47)
[2023-11-17] MEDS: OPTIRAY 320 100ml IV ONE (10:16)
[2023-11-17] MEDS ORDERED: VANCOMYCIN LEVEL ONE (11:00)
--- NOTE | 2023-11-17 11:28 | Anesthesiology Consultation ---
Date of Service November 17, 2023 Assessment & Plan (1) Encounter for pre-operative examination: Chart Review Chart Review: Acceptable Risk for Surgery, Patient NOT seen in Pre Admission Testing and order entry technician initiated Consults Requested none Proposed Anesthesia Anesthesia Type: MAC History Surgery Operation Date: 11/17/23 13:30 Proposed Procedures p Transesophageal Echo w/Anesthesia - Manny Chisholm DO Operation Date: 11/18/23 07:15 Proposed Procedures p Transesophageal Echo w/Anesthesia - Manny Chisholm DO Height/Weight Height: 6 ft Weight: 137 kg Allergies Allergy/AdvReac Type Severity Reaction Status Date / Time PRESERVATIVES Allergy Unknown eyes Uncoded 04/10/14 11:40 swell, tightness of throat Medications Home Medications Medication Instructions Recorded Confirmed Last Taken dulaglutide 1.5 mg/0.5 mL 1.5 mg subcut Q7D 11/15/23 11/15/23 Unknown subcutaneous pen injector (Trulicity) empagliflozin 25 mg tablet 25 mg PO DAILY 11/15/23 11/15/23 Unknown (Jardiance) losartan 25 mg tablet 25 mg PO DAILY 11/15/23 11/15/23 Unknown pravastatin 10 mg tablet 10 mg PO HS 11/15/23 11/15/23 Unknown Active Medications Generic Name Dose Route Start Last Admin Trade Name Freq PRN Reason Stop Dose Admin Enoxaparin Sodium 40 mg 11/15/23 21:00 11/16/23 20:40 Enoxaparin Inj 40 Mg/0.4 Ml Syr SQ 12/15/23 20:59 40 mg HS FINN Administration Piperacillin Sod/Tazobactam 100 mls @ 25 mls/hr 11/15/23 20:00 11/17/23 08:31 Sod 4.5 gm/ Dextrose IV 11/22/23 19:59 Infused Q8H FINN Infusion Protocol Sodium Chloride 1,000 mls @ 80 mls/hr 11/17/23 00:01 11/17/23 00:11 Nss IV 12/17/23 00:00 80 mls/hr .[id number] FINN Administration Insulin Aspart 0 units 11/17/23 00:00 11/17/23 09:18 Insulin Aspart Per Unit Charge SC 12/17/23 00:00 Not Given Q4 FINN Insulin Glargine 10 units 11/17/23 09:00 11/17/23 09:37 Lantus Per Unit Charge SC 12/17/23 08:59 10 units DAILY FINN Administration Losartan Potassium 25 mg 11/16/23 09:00 11/17/23 09:34 Losartan Potassium 25 Mg Tab PO 12/16/23 08:59 25 mg DAILY FINN Administration Pravastatin Sodium 10 mg 11/15/23 21:00 11/16/23 20:40 Pravastatin Sod 10 Mg Tab PO 12/15/23 20:59 10 mg HS FINN Administration Past Medical History Medical History Charcot's arthropathy Diabetic peripheral neuropathy HLD (hyperlipidemia) HTN (hypertension) T2DM (type 2 diabetes mellitus) Obesity, morbid, BMI 40.0-49.9 Past Family History Family History Father No problems noted. Mother Liver cancer Past Surgical History Surgical History Hx of foot surgery multiple surgeries on R foot regarding ulcer Social History Smoking Status: Never smoker Hx Alcohol Use: No Hx Substance Use: No substance use type: does not use Physical Exam Vital Signs Last Vital Signs Temp 37.0 C 11/17/23 08:00 Pulse 98 H 11/17/23 08:00 Resp 18 11/17/23 08:00 BP 120/72 11/17/23 08:00 Pulse Ox 97 11/17/23 08:00 O2 Del Method Room Air 11/17/23 08:00 Testing Laboratory Results 11/17/23 05:54 11/17/23 05:54 Hemoglobin A1c 7.5 % (4.5-5.6) H 11/16/23 03:57 Urine Color Yellow 11/15/23 12:52 Urine Appearance Cloudy (Clear) A 11/15/23 12:52 Urine pH 5.5 (4.5-7.5) 11/15/23 12:52 Ur Specific [place] 1.038 (1.000-1.030) H 11/15/23 12:52 Urine Protein Negative (Negative) 11/15/23 12:52 Urine Glucose (UA) 3+ (Negative) H 11/15/23 12:52 Urine Ketones 3+ (Negative) H 11/15/23 12:52 Urine Nitrite Negative (Negative) 11/15/23 12:52 Ur Leukocyte Esterase Negative (Negative) 11/15/23 12:52 Urine WBC (Auto) 0-5 /hpf (0-5) 11/15/23 12:52 Urine RBC (Auto) 0-2 /hpf (0-2) 11/15/23 12:52 U Hyaline Cast (Auto) 0-2 /lpf (0-2) 11/15/23 12:52 U Epithel Cells (Auto) 0-2 /hpf (0-2) 11/15/23 12:52 Urine Bacteria (Auto) None Seen (None Seen) 11/15/23 12:52 11/16/23 09:42 Aerobic Blood Culture - Preliminary Blood Gram positive cocci clusters 11/15/23 13:52 Aerobic Blood Culture - Preliminary Blood Staphylococcus species Anaerobic Blood Culture - Final 11/15/23 13:50 Aerobic Blood Culture - Preliminary Blood Staphylococcus species Anaerobic Blood Culture - Preliminary Staphylococcus species 11/17/23 11/17/23 11/17/23 08:17 04:34 00:04 POC Glucose 134 H 119 H 135 H Electrocardiogram Date: 11/15/23 Test Reason : Blood Pressure : / mmHG Vent. Rate : 106 BPM Atrial Rate : 106 BPM P-R Int : 180 ms QRS Dur : 098 ms QT Int : 376 ms P-R-T Axes : 031 073 047 degrees QTc Int : 499 ms Sinus tachycardia Incomplete right bundle branch block Borderline ECG No previous ECGs available Confirmed by Gustavo Bearden ([id number]) on 11/16/2023 10:55:31 AM Chest X-Ray Date: 11/15/23 SINGLE VIEW CHEST CLINICAL HISTORY: Generalized weakness FINDINGS: An AP, portable, upright chest radiograph is obtained. No prior studies are available for comparison at the time of dictation. The cardiomediastinal silhouette is unremarkable. The lungs and pleural spaces are clear. No pneumothorax is seen. The bony thorax is grossly intact. IMPRESSION: No active disease in the chest. Echocardiogram Date: 11/16/23 EF: 65-70 LV Function: normal RWMA: + none Possible Ao valve vegetations
--- NOTE | 2023-11-17 11:33 | CT Scan Report ---
RIGHT FOOT CT WITH CONTRAST CLINICAL HISTORY: Evaluate for osteomyelitis. COMPARISON STUDY: Right foot radiographs November 15, 2023. TECHNIQUE: Axial images of the right foot were obtained following intravenous injection of 94 cc of O ptiray 320 IV. Sagittal and coronal reconstructions were viewed. Automated exposure control was utili Ascade for the study. A dose lowering technique was utilized adhering to the principles of ALARA. FINDINGS: Extensive right mid foot deformity is suggestive of neuropathic arthropathy. Specifically, there is pes planus with rocker bottom deformity. Severe arthritic changes noted with bony fragmentat ion and midfoot collapse. Several articulations are fused. There is a nondisplaced fracture through t he base of the fifth metatarsal. The fourth and fifth metatarsals and tarsometatarsal joints are fuse d. Fracture extends to the base of the fourth metatarsal. Of note, there is a wound of the plantar mi dfoot. Deep to the wound, there are several rim-enhancing fluid collections along the bases of the fo urth and fifth metatarsals and the fourth and fifth tarsometatarsal joints. The largest collection me asures 3 x 2.3 cm. An adjacent collection measures 2.4 x 1.2 cm. Associated bone erosion of the bases of the fourth and fifth metatarsals and the fourth and fifth metatarsophalangeal joints are present. No additional acute erosions within the right foot are identified. There are no additional fractures within the right foot. Diffuse soft tissue swelling is noted. Tendon sheath for the extensor digitor um longus is distended with associated enhancement. Several pockets of fluid within the extensor tend on sheaths measure up to 2.8 x 0.8 cm. There is no soft tissue gas within the right foot. IMPRESSION: 1. Severe degenerative changes of the right midfoot suggestive of neuropathic arthropathy, as describ ed above. 2. Wound of the plantar midfoot. Several multiloculated rim-enhancing fluid collections deep to the w ound measure up to 3 x 2.3 cm and represent abscesses. Associated bony erosion of the bases of the fo urth and fifth metatarsals and the fourth and fifth tarsometatarsal joints suggestive of osteomyeliti s with possible septic arthritis. 3. Nondisplaced fracture of the base of the fifth metatarsal that extends into the base of the fourth metatarsal. 4. Findings suggestive of septic tenosynovitis of the tendon sheath of the extensor digitorum longus with several rim enhancing pockets of fluid suggestive of abscesses. ACT 112: Negative or not required by law. Electronically signed by: Law Martel M.D. 11/17/2023 11:31 AM
--- NOTE | 2023-11-17 11:44 | Pharmacy Report ---
Pharmacy Glycemic Short Note 2 - Date of Service November 17, 2023 - Glycemic Short BSG Results (Last 24 hours): 11/16/23 11/16/23 11/16/23 11:53 13:01 13:59 Glucose POC Glucose 119 H 93 99 11/16/23 11/16/23 11/16/23 14:29 14:59 16:02 Glucose 115 H POC Glucose 117 H 109 H 11/16/23 11/16/23 11/16/23 17:03 17:33 17:57 Glucose 120 H POC Glucose 122 H 109 H 11/16/23 11/16/23 11/16/23 18:41 20:36 21:31 Glucose 151 H POC Glucose 124 H 132 H 11/17/23 11/17/23 11/17/23 00:04 04:34 05:54 Glucose 147 H POC Glucose 135 H 119 H 11/17/23 08:17 Glucose POC Glucose 134 H OUTPATIENT ANTIDIABETIC REGIMEN: * Dulaglutide, Empagliflozin * A1c pending ASSESSMENT: 11/16: * Efe received ~45 units of insulin yesterday (10 basal + 5 correctional +~30 from the insulin drip) * Yesterday evening his labs normalized and he was transitioned back to SQ insulin successfully. For basal insulin, 25% of yesterday's requirements given this AM, currently NPO for ECHO today. Will add a basal scale at bedtime based on BSG due to unknown oral intake/basal needs. * Novolog appears to be correcting at this time, unable to assess carbohydrate ratio 11/15: * Labs worsening this AM, anion gap now elevated - discussed with provider and wishes to start insulin drip for euglycemic DKA. D5NS+20 k started along with insulin drip at 0.1 units/kg/hr -Managed insulin infusion based upon BSGs and adjusted accordingly. * BSGs trending down slightly this afternoon, held drip, but now resuming at 3 units/hr - awaiting repeat BMP 11/14 * Patient admitted with foot infection, history of type II diabetes. * BSG initially elevated at 251 mg/dL, appeared to be in mild DKA with CO2 18, anion gap 18 but VBG pH was normal * Initially entered insulin infusion per DKA protocol, however this was held per hospitalist until new sets of labs were drawn/resulted. On this set of labs, CO2/anion gap had corrected. Discussed with hospitalist- d/c insulin infusion (never started) and begin basal/bolus insulin. * BSGs have been in the 130s. Began novolog between stress of 1 and 2 weight based dosing. * Patient ordered a diet but will be NPO at midnight. PLAN FOR INPATIENT GLYCEMIC CONTROL: * Hold outpatient oral diabetes medications * Basal insulin * LANTUS 10 units SQ QAM * Lantus 0-10 units SQ HS (see eMAR for additional details) * Correctional Insulin with NOVOLOG / REGULAR per scale ACHS or Q6hrs while NPO * Goal Range: Low 110 mg/dL - High 140 mg/dL * Correction Factor: 30 mg/dL/unit * Nutritional / Prandial insulin per carb ratio of 1 unit per 10 grams CHO consumed * Please note that the plan above was derived based on current level of insulin resistance and hospital stress. These recommendations are appropriate for inpatient admission only. Plan of care upon discharge will need to be reassessed to avoid potential outpatient hypo/hyperglycemia. Thank you.
[2023-11-17] MEDS: BENZOCAINE/TETRACAIN/BUTAM 50 APPLN/5 GM CAN EXT ONE (13:38)
--- NOTE | 2023-11-17 14:02 | Communication Note ---
Date of Service: November 17, 2023 The patient obtained today, though CT report andImages were reviewed extensively. Discussed case with Alessiamarium Amaya through [place]. The CT does reveal more extensive plantar abscess extending directly to the calcaneocuboid joint and throughout the plantar foot. Due to the proximity of this abscess to the bones of the rear foot, chronic changes is consistent with both osteomyelitis and Charcot neuroarthropathy. He would benefit from extensive debridement of the wound, incision and drainage of the abscess and any necrotic, nonviable. Further, because of the complexity of the underlying Charcot deformity, he may simply elect for a below the knee amputation which would be more definitive and off for a quick jerk returned to recovery. This is a large decision to make, though Alessia agrees to get [facility] consult did for their input regarding the potential below the knee amputation. Otherwise, if he does elect for limb salvage, I will plan on An incision and drainage with bone biopsy On . Orthopedics can plan the surgery sooner than , they are welcome to take over the case as well.
[2023-11-17] MEDS ORDERED: PROPOFOL IV EMULSION 10 MG/ML 20 ML VIAL IV ONE (14:20)
[2023-11-17] MEDS ORDERED: LIDOCAINE 2% 2 ML VIAL/AMP(20MG/ML) INFIL ONE (14:20)
--- NOTE | 2023-11-17 14:46 | Anesthesiology Progress Note ---
Date of Service November 17, 2023 Anesthesia Post Procedure Vital Signs Vital Signs: Temp Pulse Pulse Pulse Resp BP Pulse Ox 11/17/23 14:15 97 H 16 117/70 96 11/17/23 13:12 90 16 130/78 96 11/17/23 11:56 37.1 C 89 18 118/73 96 11/17/23 08:00 37.0 C 98 H 18 120/72 97 11/17/23 07:37 94 H 11/17/23 02:25 36.8 C 99 H 16 101/60 96 11/16/23 23:41 37.6 C H 92 H 16 118/74 95 11/16/23 22:02 94 H 11/16/23 20:11 37.9 C H 95 H 18 124/77 98 O2 Del Method 11/17/23 14:15 Room Air 11/17/23 13:12 Room Air 11/17/23 11:56 Room Air 11/17/23 08:00 Room Air 11/17/23 07:37 11/17/23 02:25 Room Air 11/16/23 23:41 Room Air 11/16/23 22:02 11/16/23 20:11 Room Air Transfer of Care Handoff Completed per policy Notes Mental Status: alert / awake / arousable Patient Amnestic to Procedure: Yes Nausea / Vomiting: adequately controlled Pain: adequately controlled Airway Patency, RR, SpO2: stable & adequate BP & HR: stable & adequate Hydration State: stable & adequate Anesthetic Complications: no major complications apparent
[2023-11-17] MEDS ORDERED: LANTUS PER UNIT CHARGE SC SCH (21:00)
[2023-11-18 06:53] LABS: Basophils # (auto) 0.05 K/uL (0.00-0.20); Basophils % (auto) 0.6 %; Eosinophils # (auto) 0.18 K/uL (0.00-0.50); Eosinophils % (auto) 2.3 %; Hematocrit (blood only) 38.1 % (42.0-52.0); Hemoglobin 12.3 g/dl (14.0-18.0); Immature Granulocytes # (auto) 0.34 K/uL (0.01-0.20); Immature Granulocytes % (auto) 4.4 %; Lymphocytes # (auto) 1.28 K/uL (1.20-3.40); Lymphocytes % (auto) 16.6 %; Mean Corpuscular Hemoglobin 26.3 pg (25.0-34.0); Mean Corpuscular Hgb Conc 32.3 g/dL (32.0-36.0); Mean Corpuscular Volume 81.4 fL (80.0-100.0); Mean Platelet Volume 9.1 fL (9.4-12.4); Monocytes # (auto) 0.65 K/uL (0.11-0.59); Monocytes % (auto) 8.4 %; Neutrophils % (auto) 67.7 %; Platelet Count 290 K/uL (130-400); RDW Coefficient of Variation 14.8 % (11.5-14.5); RDW Standard Deviation 43.9 fL (36.4-46.3); Red Blood Count 4.68 M/uL (4.70-6.10)
[2023-11-18 07:15] LABS: BUN Creatinine Ratio 13.8 (10-20); Calcium 8.2 mg/dl (8.6-10.3); Creatinine Clr Calc Pharmacy 166.5 ml/min; Est GFR (African American) 124.2 ml/min; Est GFR (Non-African American) 107.1 ml/min; Potassium 3.9 mmol/L (3.5-5.1)
--- NOTE | 2023-11-18 08:16 | Hospitalist Progress Note ---
Date of Service November 18, 2023 Assessment & Plan (1) DKA (diabetic ketoacidosis): (2) Diabetic ulcer of right foot: (3) Charcot's arthropathy: (4) Diabetic peripheral neuropathy: (5) HTN (hypertension): (6) HLD (hyperlipidemia): (7) High anion gap metabolic acidosis: (8) Infective endocarditis: Plan This is a 48 yr old M who has a significant PMH of T2DM complicated for diabetic foot wound, R foot charcot arthopathy, diabetic neuropathy, HTN, HLD, hx of morbid obesity, who presents to ED 2/2 ill feeling and worsening swelling to R diabetic foot wound; confirmed osteomyelitis with abscess with possible septic arthritis and tenosynovitis. RODRI results indicated infective endocarditis. Infectious Endocarditis: Bacteremia: Acute In the setting of osteomyelitis + unhealed surgical wound Blood cultures from admission gram + cocci; Third set of cultures + for gram cocci in clusters; continue IV Zosyn for now Daily blood cultures until source control No leukocytosis currently; WBC 7.70 Will continue IV Zosyn for now for broad coverages; await ID consult to adjust based on cultures ECHO ordered and performed; no murmur on examination. EF 65-70%, aortic valve leaflet with possible AV Vegetation. RODRI performed today: moderate focal thickening in the setting of positive blood cultures would treat for early endocarditis; likely need predatory animal exterminator IV abx. No valve regurgitation, small PFO noted Pending results of RODRI will involve Infectious Disease. Will likely require PICC/midline for long-term IV abx course. Will need to wait until source control for insertion of a line. Keep NPO after MN Osteomyelitis: Unhealed surgical wound of right diabetic foot ulcer Diabetic Charcot arthropathy Diabetic peripheral neuropathy follows Dr[facility] has been dealing with wound for last 4 years including laser wound therapy Last tx last week; with worsening increased red/swelling, but no drainage blood cultures from admission gram + cocci; continue IV Zosyn for now No leukocytosis; WBC 9.79 CRP 24.84 on admission Podiatry on board Foot CT 11/16: - Several multiloculated rim-enhancing fluid collections deep to the wound measure up to 3 x 2.3 cm and represent abscesses. -Associated bony erosion of the bases of the fourth and fifth metatarsals and the fourth and fifth tarsometatarsal joints suggestive of osteomyelitis with possible septic arthritis. -Nondisplaced fracture of the base of the fifth metatarsal that extends into the base of the fourth metatarsal. -Findings suggestive of septic tenosynovitis of the tendon sheath of the extensor digitorum longus with several rim enhancing pockets of fluid suggestive of abscesses. Given the duration of the ulceration and the more recent signs of infection, will involve Vascular as this is Charcot + Osteomyelitis for discussion about possible BKA. In discussion with podiatry, may require BKA discussion with vascular Podiatry has planned bone biospy and I/D for 11/18. Keep NPO after MN Euglycemic DKA: High anion gap metabolic acidosis: pt with ketonuria, elevated anion gap in setting of euglycemia-mild hyperglycemia, normal vbg AG remains closed at 8;resolved for now A1C 12/1011/16/23 continue to hold home diabetic regimen on JarRayray huertasulicsusan HTN: chronic, stable continue losartan HLD: chronic, stable continue statin Disposition: Code Status: FULL CODE PCP: Dr. Mittal VTE Prophylaxis: Lovenox SQ I spent a total of 52 minutes coordinating, documenting and providing care for this patient excluding time spent in performance of separately billed services Admission and Anticipated Discharge Date Admission Date: November 15, 2023 Subjective Patient sitting in his hospital bed in no apparent distress Denies chest pain, shortness of breath, heart palpitations Denies fever or chills Continues to have right foot discomfort; no worse from yesterday Patient and family wish to hold on vascular consultation for now. Open to orthopedic consult to discuss possible BKA. Family is eager to hear from infectious disease Patient willing to proceed with podiatry plan for bone biopsy and I/D tomorrow 11/18 All questions answered and awaiting further consultation Review of Systems Review of Systems: Neuro: (-) Falls, trauma, slurred speech HEENT: (-) MOY, dizziness, dysphagia, visual or auditory changes CV: (-) CP, palpitations, swelling Resp: (-) SOB GI: (-) appetite changes, N/V/D, bowel changes : (-) urinary changes Skin: (-) rashes Psych: (-) anxiety, depression Physical Exam Physical Exam: Neuro: AAOx4, PERRLA, no aphagia, memory changes, CNII-XII grossly intact HEENT: head normocephalic, moist mucus membranes CV: S1/S2, (-) M/G/R, (-) edema, cap refill < 3 seconds Resp: Lungs CTA in all reynaga. On RA GI: Abdomen S/NT/ND, Ax4 bowel sounds, (-) CVA tenderness Musculoskeletal: 5/5 B/L UE strength, 5/5 B/L LE strength. RLE with decreased sensation up to knee. Skin: (-) rashes , (-) erythema. plantar surface of R foot with dime sized ulceration, no drainage, no malodor. Psych: euthymic mood Results & Data Results & Data Vital Signs (Past 12 Hours) Vital Signs Temp Pulse Pulse Resp BP Pulse Ox O2 Del Method 11/18/23 07:35 37.5 C 79 18 125/80 95 Room Air 11/18/23 07:15 89 11/17/23 23:12 37.4 C 98 H 18 118/75 95 Room Air 11/17/23 22:04 101 H Laboratory Results Short CBC 11/18/23 Range/Units 06:29 WBC 7.70 (4.8-10.8) K/ul Hgb 12.3 L (14.0-18.0) g/dl Hct 38.1 L (42.0-52.0) % Plt Count 290 (130-400) K/uL BMP 11/18/23 06:29 Sodium 136 Potassium 3.9 Chloride 104 Carbon Dioxide 24 BUN 11 Creatinine 0.80 Glucose 147 H Calcium 8.2 L (1) DKA (diabetic ketoacidosis) Diabetes mellitus complication detail: without coma Diabetes mellitus type: type 2 Qualified Code(s): E11.10 - Type 2 diabetes mellitus with ketoacidosis without coma (2) Diabetic ulcer of right foot Diabetes mellitus type: type 2 Diabetic foot ulcer location: midfoot Non- pressure ulcer stage: limited to breakdown of skin Qualified Code(s): E11.621 - Type 2 diabetes mellitus with foot ulcer; L97.411 - Non-pressure chronic ulcer of right heel and midfoot limited to breakdown of skin
[2023-11-18] MEDS: INSULIN ASPART PER UNIT CHARGE SC SCH (09:30)
[2023-11-18] MEDS: INSULIN ASPART PER UNIT CHARGE SC ONE (09:34)
--- NOTE | 2023-11-18 12:01 | Ultrasound Report ---
US arterial duplex LE RT HISTORY: 48 years-old Male OM + Septic arthritis + Charcot COMPARISON: Right foot CT 11/17/2023 TECHNIQUE: Multiple real-time static images of the right lower extremity arterial structures were obt ained assessing grayscale appearance, color and spectral flow. Segmental pressures also obtained. FINDINGS: Right-sided CAL of 1.32, TBI of 0.92. Left-sided CAL of 1.45, TBI of 0.94. Triphasic waveforms in the common femoral, profunda femoris and popliteal arteries. Mostly triphasic waveforms also noted within the lower leg. Areas of subcutaneous edema noted. Dorsalis pedis artery d emonstrates biphasic waveforms. No arterial occlusion or elevated peak systolic velocities to suggest high-grade stenosis. Limited visualization of the peroneal artery. IMPRESSION: No arterial occlusion or high-grade stenosis identified. ACT 112: Negative or not required by law. The above report was generated using voice recognition software. It may contain grammatical, syntax o r spelling errors. Electronically signed by: Grant Valverde M.D. 11/18/2023 11:59 AM
--- NOTE | 2023-11-18 14:23 | Podiatry Progress Note ---
Date of Service November 18, 2023 Assessment & Plan (1) Cellulitis in diabetic foot: (2) Diabetic ulcer of right foot: (3) DKA (diabetic ketoacidosis): (4) Charcot's joint, right ankle and foot: Plan Patient examined and evaluated. While based on his clinical exam and subjective history from him and his osteomyelitis was thought to be less likely, the CT scan refutes that and is highly suggestive of a large abscess and significant osteomyelitis of the rear foot. I had extensive conversations With the patient and his at bedside and with Alessia Monzon in arranging care regarding him in his current needs and expectations. Essentially, he would benefit from a s urgical incision and drainage of this abscess with bone biopsy and bone culture to help decrease infectious burden to the foot and stabilize him overall. He and his are concerned that this could make the vegetations or infectious endocarditis concerns worse and are a little apprehensive at scheduling this surgically here. Instead, they are relatively persistent that they would like to be transferred to a higher level of care for this and more definitive treatment of both his heart concerns and this foot and ankle concern. We are amenable to this, however, I did suggest that if he is still present in our hospital tomorrow, it would be beneficial to allow us to perform the surgical intervention. For now, while the primary care team worked on arranging a transfer, I will work on scheduling this surgical intervention as an inpatient. Patient understands and is amenable to this for now. We'll continue to follow as long as he remains inpatient. Admission and Anticipated Discharge Date Admission Date: November 15, 2023 Subjective Patient seen at bedside. He has had some changes over the last couple days, most notably for the foot a CT scan that did reveal significant abscess and likely osteomyelitis to the right foot. This is in addition to the Charcot neural arthropathy that was already present. Further, he has had a echocardiogram revealing potential infectious vegetations. He denies any significant change in his symptoms and admits to feeling improved since his hospitalization still. Because of his multiple comorbid conditions, however, he and his are interested in a transferred to a higher level of care, specifically because of a lack of availability of infectious disease physician on site here. He denies any new systemic signs or symptoms of infection and had a arterial Doppler exam performed yesterday as well. Review of Systems Constitutional: no fever, no chills and no fatigue Eyes: no problem reported Ear, Nose, Mouth, Throat: no problem reported Respiratory: no problem reported Cardiovascular: + edema; no problem reported Gastrointestinal: no nausea, no vomiting and no problem reported Musculoskeletal: no problem reported Integumentary: + skin ulcer, + wounds and + erythema Neurologic: + loss of sensation, + numbness and + pa resthesia; no generalized weakness Psychiatric: no problem reported Physical Exam Physical Exam: Lower extremity focused exam: DP/PT pulses 2/4. CFT brisk to digits. Warmth noted to b/l LE, greater on the right. Callus formation noted sub-calcaneocuboid joint. Upon sharp debridement at bedside, no underlying deep ulceration noted. Absent protective sensation/pain sensation. Crepitus is noted on passive ROM of the foot and ankle, consistent with chronic degenerative changes throughout the midfoot. Extreme rocker bottom deformity is noted, consistent with this longstanding Charcot collapse. Constitutional: WD/WN, vitals as above + ill appearing and + obese Eyes: PERRL, conjunctivae normal, anicteric sclerae ENMT: external ear and nose normal, oropharynx normal Neck: trachea midline, no thyromegaly normal visual inspection Respiratory: normal respiratory effort; no respiratory distress Cardiovascular: Rate/Rhythm: regular rate and regular rhythm Chest (Breasts): Chest: normal inspection of chest Gastrointestinal (Abdomen): Inspection/Auscultation: abdomen normal to inspection Percussion/Palpation: + abdomen tender and abdomen soft Musculoskeletal: no cyanosis or clubbing, extremities motor strength 5/5 Head/Neck/Chest: normocephalic and head atraumatic Extremities: extremities normal to inspection Ankle: + ankle ROM with crepitation Skin: + lesion, + ulcer, + erythema, + nails d iscolored and + nails dystrophic; no eschar and no fluctulance Trauma: no evidence of skin trauma Neurologic: awake; no focal motor deficits Psychiatric: A+Ox3, euthymic affect Results & Data Results & Data Vital Signs (Past 12 Hours) Vital Signs Temp Pulse Pulse Resp BP Pulse Ox O2 Del Method 11/18/23 13:25 37.3 C 91 H 20 128/80 95 Room Air 11/18/23 07:35 37.5 C 79 18 125/80 95 Room Air 11/18/23 07:[address] scan of the right foot does reveal significant underlying abscess and osteomyelitis along with the chronic Charcot deformity of the rear foot joints. The abscess extends from the plantar ulceration, though small clinically, directly to the calcaneocuboid joint with suggestion of profound abscess and septic arthritis throughout the rear foot joints. (2) Diabetic ulcer of right foot Diabetes mellitus type: type 2 Diabetic foot ulcer location: midfoot Non- pressure ulcer stage: limited to breakdown of skin Qualified Code(s): E11.621 - Type 2 diabetes mellitus with foot ulcer; L97.411 - Non-pressure chronic ulcer of right heel and midfoot limited to breakdown of skin (3) DKA (diabetic ketoacidosis) Diabetes mellitus complication detail: without coma Diabetes mellitus type: type 2 Qualified Code(s): E11.10 - Type 2 diabetes mellitus with ketoacidosis without coma
[2023-11-18 15:10] VITALS: RESP 18
--- NOTE | 2023-11-18 15:30 | Discharge Summary ---
Date of Service November 18, 2023 Admission HPI Per Admitting Provider This is a 48 yr old M who has a significant PMH of T2DM complicated for diabetic foot wound, R foot charcot arthopathy, diabetic neuropathy, HTN, HLD, hx of morbid obesity, who presents to ED 2/2 ill feeling and worsening swelling to R diabetic foot wound. is at bedside also helps elicit history. He has been dealing with this wound for 4 years now. He follows with podiatry, Dr. Mace and was last seen 1 week ago. He has had numerous surgeries on R foot in past. He has been getting laser therapy and things seemed stable. The evening after his appt he was walking around quite a bit at a baseball field. The day after his last appt with podiatry he woke up and was nauseated, vomiting and diarrhea. This lasted for 2 days, but he hasn't been able to, "shake the feeling." He denies fever. He feels off balance. He also feels his R foot wound is more swollen than previously. He denies any drainage of the wound. There has been no change in sensation as he has hx of neuropathy. "I feel like by feet are tied with ropes." He generally has had a poor appetite for the last week. He denies halie f/c/s, chest pain, sob, uri sx hematemesis, constipation,abd pain, dysuria, increased urg/freq with urination. He denies sick contacts. He has been still able to take his medications. He denies prior hx of DKA. I n ED he was hemodynamically stable. Lab work was notable for mild leukocytosis at 11.52k, corrected sodium 130, anion gap 18, bicarb 18, glucose 251, UA with ketones, glucose and trace blood. His venous doppler was negative for DVT. R foot xray reveals significant soft tissue edema along with charcot arthropathy changes. He received IVF and was started on IV vancomycin and zosyn. Admission Exam Per Admitting Provider GENERAL APPEARANCE: AxOx4, mildly ill appearing, no acute distress. HEENT: NC, AT. MMM. EOMI, clear conjunctiva, oropharynx clear. NECK: Supple without lymphadenopathy. No stiffness or restricted ROM. HEART: Normal rate and regular rhythm, normal S1/S1, no m/r/g LUNGS: CTAB, moving air well. No crackles or wheezes are heard. ABDOMEN: Soft, nontender, nondistended with good bowel sounds heard. BACK: No CVAT, no obvious deformity. EXTREMITIES: bilateral feet with arch flattening/bowing, loss of fine touch/dull sensation on sole of right foot and digits, sensory intact on left NEUROLOGICAL: Grossly nonfocal. Alert and oriented, moving all 4 extremities. CN not formally tested but appear grossly intact. Observed to ambulate with normal gait. Skin: right foot with circumferential edema and dorsal erythema noted, small opening in callused area on lateral sole of foot without drainage Principal Diagnosis Infective endocarditis, osteomyelitis of the right foot with septic arthritis and tenosynovitis and MSSA bacteremia. Discharge Exam GENERAL APPEARANCE: AxOx4, mildly ill appearing, no acute distress. HEENT: NC, AT. MMM. EOMI, clear conjunctiva, oropharynx clear. NECK: atraumatic, normocephalic. No stiffness or restricted ROM. HEART: Normal rate and regular rhythm, normal S1/S1, no m/r/g LUNGS: CTAB, moving air well. No crackles or wheezes are heard. ABDOMEN: Soft, nontender, nondistended with good bowel sounds heard. BACK: No CVAT, no obvious deformity. EXTREMITIES: bilateral feet with arch flattening/bowing, loss of fine touch/dull sensation on sole of right foot and digits, sensory intact on left NEUROLOGICAL: Grossly nonfocal. Alert and oriented, moving all 4 extremities. CN not formally tested but appear grossly intact. Observed to ambulate with normal gait. Skin: right foot with circumferential edema and dorsal erythema noted, small opening in callused area on lateral sole of foot without drainage. Discharge Data Allergies Allergy/AdvReac Type Severity Reaction Status Date / Time PRESERVATIVES Allergy Unknown eyes Uncoded 04/10/14 11:40 swell, tightness of throat Consultations 11/15/23 13:48 ED Decision to Admit Stat 11/15/23 14:00 Consult Podiatry Routine 11/16/23 17:10 Consult Anesthesiology Routine 11/16/23 17:13 Consult Anesthesiology Routine 11/17/23 13:41 Consult Infectious Diseases Routine 11/18/23 07:14 Consult Orthopedic Surgery Routine Procedures Performed Operation Date: 11/19/23 14:00 <No data on this case meets the specified criteria> Ordered Studies 11/15/23 11:19 US venous doppler LE RT Stat 11/16/23 10:14 CT foot RT w con Routine 11/18/23 09:53 US arterial duplex LE RT Routine Hospital Course (1) Infective endocarditis: (2) Osteomyelitis: (3) MSSA bacteremia: (4) Septic arthritis: (5) Charcot's joint, right ankle and foot: (6) T2DM (type 2 diabetes mellitus): (7) HTN (hypertension): (8) HLD (hyperlipidemia): (9) Diabetic peripheral neuropathy: Plan This is a 48 yr old M who has a significant PMH of T2DM complicated for diabetic foot wound, R foot charcot arthopathy, diabetic neuropathy, HTN, HLD, hx of morbid obesity, who presents to ED 2/2 ill feeling and worsening swelling to R diabetic foot wound; confirmed osteomyelitis with abscess with septic arthritis and tenosynovitis. ECHO on 11/15 with a preserved EF of 65 to 70% with aortic valve leaflet with possible AV vegetation noted. On 11/16 RODRI performed revealing moderate focal thickening in the setting of positive blood cultures noted to have early infective endocarditis. No valve regurgitation and a small PFO noted. Additional imaging includes the followin. 11/15/23: Venous Doppler Study: There is no sonographic evidence of deep venous thrombosis identified in the right lower extremity. 2. 11/16/[address]: -Severe degenerative changes of the right midfoot suggestive of neuropathic arthropathy, as described above. -Wound of the plantar midfoot. Several multiloculated rim-enhancing fluid collections deep to the wound measure up to 3 x 2.3 cm and represent abscesses. Associated bony erosion of the bases of the fourth and fifth metatarsals and the fourth and fifth tarsometatarsal joints suggestive of osteomyelitis with possible septic arthritis. -Nondisplaced fracture of the base of the fifth metatarsal that extends into the base of the fourth metatarsal. -Findings suggestive of septic tenosynovitis of the tendon sheath of the extensor digitorum longus with several rim enhancing pockets of fluid suggestive of abscesses. 3. 11/15/23: CXR: No active disease in the chest. 4. 11/18/23: Duplex Scan Lower Extremity Artery: No arterial occlusion or high- grade stenosis identified. Infectious Endocarditis: Bacteremia: Acute In the setting of osteomyelitis + unhealed surgical wound Blood cultures from admission gram + cocci; Third set of cultures + for gram cocci in clusters; continue IV Zosyn for now Daily blood cultures until source control No leukocytosis currently; WBC 9.79 Will continue IV Zosyn for now for broad coverages; await ID consult to adjust based on cultures ECHO ordered and performed; no murmur on examination. EF 65-70%, aortic valve leaflet with possible AV Vegetation. RODRI performed today: moderate focal thickening in the setting of positive blood cultures would treat for early endocarditis; likely need university internship IV abx. No valve regurgitation, small PFO noted Osteomyelitis: Acute Unhealed surgical wound of right diabetic foot ulcer Diabetic Charcot arthropathy Diabetic peripheral neuropathy follows Dr. Mace of [facility] has been dealing with wound for last 4 years including laser wound therapy Last tx last week; with worsening increased red/swelling, but no drainage blood cultures from admission gram + cocci; continue IV Zosyn for now No leukocytosis; WBC 9.79 CRP 24.84 on admission Podiatry on board Foot CT 11/16: - Several multiloculated rim-enhancing fluid collections deep to the wound measure up to 3 x 2.3 cm and represent abscesses. -Associated bony erosion of the bases of the fourth and fifth metatarsals and the fourth and fifth tarsometatarsal joints suggestive of osteomyelitis with possible septic arthritis. -Nondisplaced fracture of the base of the fifth metatarsal that extends into the base of the fourth metatarsal. -Findings suggestive of septic tenosynovitis of the tendon sheath of the extensor digitorum longus with several rim enhancing pockets of fluid suggestive of abscesses. Given the duration of the ulceration and the more recent signs of infection, will involve Vascular as this is Charcot + Osteomyelitis for discussion about possible BKA. In discussion with podiatry, may require BKA discussion with vascular Euglycemic DKA: Resolved for now pt with ketonuria, elevated anion gap in setting of euglycemia-mild hyperglycemia, normal vbg AG remains closed at 8. Resolved for now A1C 7/5 11/16/23 continue to hold home diabetic regimen on Tahmina Newman HTN: chronic, stable continue losartan HLD: chronic, stable continue statin Disposition: Code Status: FULL CODE PCP: Dr. Mittal VTE Prophylaxis: Lovenox SQ I spent a total of 54 minutes coordinating, documenting, and providing care for this patient excluding time spent in the performance of separately billed services. All of the aforementioned completed while collaborating with the assigned attending physician for a full treatment plan. Please see their addendum for further details. Total Time Total Time Spent Total Time Spent (In Minutes): I spent a total of 52 minutes coordinating, documenting, and providing care for this patient excluding time spent in the performance of separately billed services. All of the aforementioned completed while collaborating with the assigned attending physician for a full treatment plan. Please see their addendum for further details. Discharge Plan Discharge Items Patient Disposition: Transfer Acute Care Hospital Reason For Visit: DIABETIC FOOT WOUND Discharge Diagnosis: Infectious endocarditis, bacteremia, osteomyelitis, septic arthritis, diabetic Charcot arthropathy plus neuropathy. Activity: Per Instructions section Activity Comment: remain on bedrest until further evaluation Weightbearing: Right non-weightbearing Non-emergency contact: Primary Care Provider Call non-emergency contact if: you have any medication questions, your pain is not controlled, your pain is worsening and your temperature is above 101.5 Follow-up/Referrals: Rahat Mittal MD [Primary Care Provider] - Diet: Nothing by Mouth Addtl Attending Provider Instructions: You are being transferred to a tertiary care center for an upgraded medical resources available to you. You have a diagnosis that includes infective endocarditis, MSSA bacteremia, osteomyelitis of the right foot including septic arthritis and tenosynitis. You were started on IV Zosyn and were evaluated by podiatry. You underwent a foot CT yesterday indicating a more extensive plantar abscess extending directly to your joint throughout the plantar foot. Due to the proximity of this abscess in the bones towards the back of your foot chronic changes are consistent with osteomyelitis and Charcot neuroarthropathy. It is suspected that you would benefit from extensive debridement of the wound including incision and drainage of the abscess per podiatry. In discussion with podiatry due to the complexity of the underlying Charcot deformity there could be conversation regarding a below the knee amputation. Given your continuous positive blood cultures and our inability to provide in- house infectious disease family has mention to the request for a transfer to a tertiary care facility. You are receiving care physician is Dr. Rizo at [facility]. At the time of transfer patient you are have stable vital signs including blood pressure, heart rate, are without fever and are not requiring oxygen. Pending Studies at Discharge: No Stand-Alone Forms: My [facility] Skilled Items Patient informed of condition?: Yes DNR: No Discharge Level of Care: Other Communicable Disease: No Discharge Prognosis: Stable Lines: Peripheral IV Urinary Catheter: No Medications and DC Order Prescriptions: New enoxaparin [Lovenox] 40 mg/0.4 mL Syringe 40 mg subcut HS Qty: 4 0RF Zosyn in dextrose (iso-osm) 4.5 gram/100 mL piggyback 4.5 g IV Q8H Continued pravastatin 10 mg tablet 10 mg PO HS losartan 25 mg tablet 25 mg PO DAILY Held Jardiance 25 mg tablet 25 mg PO DAILY Hold Instructions: Resume on 12/06/23. Trulicity 1.5 mg/0.5 mL pen injector 1.5 mg SUBCUT Q7D Hold Instructions: Resume on 12/06/23. Rx Instructions: takes on sundays Discharge Orders: Discharge Order (Routine); Ordered 11/18/23 Ordered By: Alessia Amaya Admission Data Admit Date/Time: 11/15/23 13:48 Attending Provider: Ezekiel Benton Admit Provider: Sylvia Do Primary Care Provider: Rahat Mittal Other Providers: Rafael Pino; Sylvia Do; Yair Bobby; Mark Pradhan; Shellie Donaldson; Naif Dunn I.; Osmel Weinberg II; Josselin Franco; Kit Prince; Darren Reis; Clara Garcia; Jenny Tovar I.; Mika Bojorquez
--- NOTE | 2023-11-18 16:19 | Orthopedic Consultation ---
Date of Service November 18, 2023 Assessment & Plan (1) Charcot's joint, right ankle and foot: He was seen by Dr. Dunn today. Imaging reviewed by Dr. Dunn as well. He has this chronic charcot foot with a chronic wound on the plantar side of the foot, and has been managing this fairly well at the foot care facility that he goes to. We would not necessarily recommend bka at this time. We did give him this option, as it may come to that in the future, but he declined amputation. We would recommend I and D of the foot, and wound care. History of Present Illness Reason for Consultation: . Requesting Physician: . Attending Physician: Ezekiel Benton MD . Efe is a 48 year old patient with diabetic neuropathy, a chronic history of charcot arthropathy with a chronic plantar wound, and has been seeing [facility] for management of this. He was admitted here 3 days ago with worsening symptoms. He had xray and ct scan of the foot. ESR and CRP were both elevated on 11/14 when admitted. Podiatry has been following him while here. Orthopedics was consulted for evaluation for possible bka. He did have an echocardiogram done showing infectious endocarditis. In review of his records, it appears that he has requested transfer to another facility for further management. He states that he does not really want to proceed with amputation yet. Allergies Allergy/AdvReac Type Severity Reaction Status Date / Time PRESERVATIVES Allergy Unknown eyes Uncoded 04/10/14 11:40 swell, tightness of throat Home Medications Medication Instructions Recorded Confirmed Type dulaglutide 1.5 mg/0.5 mL 1.5 mg subcut Q7D 11/15/23 11/15/23 History subcutaneous pen injector (Trulicity) empagliflozin 25 mg tablet 25 mg PO DAILY 11/15/23 11/15/23 History (Jardiance) losartan 25 mg tablet 25 mg PO DAILY 11/15/23 11/15/23 History pravastatin 10 mg tablet 10 mg PO HS 11/15/23 11/15/23 History enoxaparin 40 mg/0.4 mL 40 mg (0.4 mL) subcut HS #4 mL 11/18/23 Rx subcutaneous syringe (Lovenox) piperacillin-tazobactam 4.5 4.5 g (112.5 mL) IV Q8H 11/18/23 Rx gram/100 mL dextrose(iso-osm) IV piggyback (Zosyn) Past Med/Surg History Problem List Diabetic peripheral neuropathy HLD (hyperlipidemia) HTN (hypertension) T2DM (type 2 diabetes mellitus) Septic arthritis MSSA bacteremia Osteomyelitis Infective endocarditis Encounter for pre-operative examination Charcot's joint, right ankle and foot Cellulitis in diabetic foot (Acute) High anion gap metabolic acidosis (Acute) Diabetic ulcer of right foot (Acute) DKA (diabetic ketoacidosis) (Acute) Medical History Charcot's arthropathy Obesity, morbid, BMI 40.0-49.9 Surgical History Hx of foot surgery multiple surgeries on R foot regarding ulcer Family History Father No problems noted. Mother Liver cancer Social History Smoking Status: Never smoker Hx Alcohol Use: No Hx Substance Use: No Preferred Language: Chinese Communication Ability: Effective Territory Representative Required: No Beliefs That Will Affect Care: None Current Living Situation: Spouse and Family Current Living Situation Comment: lives with and kids Other Information That Helps Us Care for You: No Feels Safe at Home: Yes Safety Concerns: Feels Safe At This Time Assistive Devices: CPAP Review of Systems All systems reviewed & are unremarkable except as noted in HPI & below. Physical Exam .alert and oriented. NAD Right lower extremity: He does have swelling of his foot and a plantar wound, although does not appear open at this time. No drainage. No erythema. No tenderness to palpation. Results & Data Results & Data Laboratory Results . Diagnostic Findings . xray reviewed which shows extensive degenerative changes throughout his midfoot consistent with Charcot foot ct scan reviewed as well as reports which again demonstrates the extensive changes, as well as fluid collections consistent with abscesses. PG Care Time/CCT Total # of Minutes Spent Total Time Spent with Patient: Total time spent is greater than 50% in coordination of care (as documented) at patient's floor/unit and/or counseling patient: Coding Level of Care Code 37317 IN/OBS CONSULT LVL 3,45M Diagnoses Charcot's joint, right ankle and foot M14.671
[2023-11-18 19:17] VITALS: BP 112/68; PULSE 92; TEMP 98.6; O2SAT 93
== END 2023-11-18 19:35 | disposition short-term general hospital (02) | DRG 637 ==
LOC: ED 10:54 → EDINP 13:48 → SUATTDRO 13:48 → 2N 17:09